=== PATIENT | female | born 1990 | race Caucasian/White ===

== ENCOUNTER 2022-11-21 02:26 | Inpatient (IN) | payer OTHER, SELFPAY ==
[2022-11-21 02:30] VITALS: BP 142/100; PULSE 116; RESP 16; TEMP 36.6; O2SAT 97; BMI 28.3
[2022-11-21 03:10] LABS: Basophils Absolute Auto 0.1 X10*3/uL (0.0-0.2); Eosinophils Absolute Auto 0.7 X10*3/uL (0.0-0.4); Eosinophils Percent Auto 8.1 % (0-4); Hematocrit 38.9 % (37.0-47.0); Hemoglobin 13.2 g/dl (12.0-16.0); Imm Gran Abs Auto 0.01 X10*3/uL (0.00-0.03); Imm Gran Pct Auto 0.1 % (0.0-0.4); Lymphocytes Absolute Auto 2.8 X10*3/uL (1.2-4.9); Lymphocytes Percent Auto 33.9 % (20-40); MANUAL DIFF FLAG NO; Mean Corpuscular HGB Conc 33.9 g/dl (31.0-35.0); Mean Corpuscular Hemoglobin 30.7 pg (27.0-33.0); Mean Corpuscular Volume 90.5 fL (80.0-98.0); Mean Platelet Volume 10.4 fL (9.4-12.3); Monocytes Absolute Auto 0.4 X10*3/uL (0.1-1.2); Monocytes Percent Auto 4.8 % (2-11); Neutrophils Absolute Auto 4.3 x10*3/uL (2.0-8.3); Neutrophils Percent Auto 52.1 % (45-73); Platelet Count 261 X10*3/uL (160-400); White Blood Count 8.3 X10*3/uL (4.8-10.8)
[2022-11-21 03:15] LABS: Appearance Urine Clear; Color Urine Yellow; Glucose Urine UA Negative (Negative); Leukocyte Esterase Urine Negative (Negative); Nitrite Urine Negative (Negative); PH 5.5 (5.0-9.0); Urine Blood Negative (Negative); Urine Ketones Negative (Negative); Urine Protein Negative (Neg-Trace)
[2022-11-21 03:16] LABS: Amphetamine Screen Urine Not Detected (Not Detect); Barbiturates, Urine Not Detected (Not Detect); Benzodiazepines Screen Urine Not Detected (Not Detect); Cannabinoid Screen Urine Not Detected (Not Detect); Cocaine Screen Urine POSITIVE (Not Detect); Fentanyl, urine POSITIVE (Not Detect); Opiate Screen Urine Not Detected (Not Detect); Phencyclidine Screen Urine Not Detected (Not Detect)
[2022-11-21 03:19] LABS: COVID-19 Test Negative (Negative); IDNOW Serial# 6674DD1D
[2022-11-21 03:20] LABS: UPreg QC Valid YES; Urine Pregnancy NEGATIVE (NEGATIVE)
[2022-11-21 03:23] LABS: Alanine Aminotransferase 18 U/L (0-31); Albumin Level 4.5 g/dL (3.5-5.0); Alkaline Phosphatase 102 U/L (39-117); Anion Gap 18 (12-20); Aspartate Amino Transferase 21 U/L (5-31); Bilirubin Total 0.5 mg/dL (0.0-1.0); Blood Urea Nitrogen 12 mg/dL (9-16); Calcium 9.5 mg/dL (8.4-10.2); Carbon Dioxide 21 mmol/L (22-29); Chloride 104 mmol/L (96-108); Creatinine Clr Calc Pharmacy 104.1; Estimated Glomerular Filt Rate > 60; Ethanol 86 mg/dL; Glucose Random 81 mg/dL (60-115); Potassium 4.3 mmol/L (3.3-5.1); Sodium 139 mmol/L (135-145); Total Protein 7.5 g/dL (6.5-8.0)
--- NOTE | 2022-11-21 05:12 | ED.PSYCH ---
HPI - Psych General Chief Complaint: Psychiatric Symptoms Stated Complaint: SI Time Seen by Provider: 11/21/22 02:45 Source: patient Mode of arrival: ambulatory Limitations: no limitations History of Present Illness HPI Narrative: Patient history of major depression has not seen any therapist or psychiatrist in the past not taking any medication using cocaine and alcohol to relieve the stress also taking Klonopin today she came as she felt very bad and with suicidal ideation, took 5 tablets of 1 mg Klonopin and had cocaine prior to arrival no hallucinations or delusions Related Data Home Medications Medication Instructions Recorded Confirmed albuterol sulfate 90 mcg/actuation 2 puff inhalation Q6H 11/21/22 11/21/22 aerosol inhaler Allergies Allergy/AdvReac Type Severity Reaction Status Date / Time shellfish derived AdvReac Swelling Verified 11/21/22 02:42 Review of Systems Review of Systems: Constitutional : No Weight loss, No Fever, No Chills ENT/Mouth : No sore throat, No Rhinorrhea Eyes: No Eye Pain, No Swelling Cardiovascular : No Chest Pain, no palpitations Respiratory : No Cough, No Sputum, no shortness of breath Gastrointestinal : no Nausea, No Vomiting, No Diarrhea, No abdominal Pain, no black stools Genitourinary : No Dysuria, No Urinary Frequency Musculoskeletal : No joint pain, No Myalgias, No Joint Swelling Skin : No Skin Lesions, No rash Neuro : No Weakness, No Numbness, No Dizziness, No Headache Psych : No Anxiety/Panic, + Depression, SI+ Heme/Lymph: No Bruising, No Lymphadenopathy Endocrine : No Polyuria, No Polydipsia All other systems reviewed and are negative Yes all other systems are reviewed and are negative [facility] Past Medical History Medical History (Updated 11/21/22 @ 05:18 by Wang Blank MD) Asthma Depression with suicidal ideation Polysubstance abuse Social History Social History Advance Directives: No Advance Directives Information Provided: No Healthcare Proxy: No Guardian: No Physical Exam Vital Signs: Vital Signs: Last Vital Signs Temp 97.8 F 11/21/22 02:30 Pulse 116 H 11/21/22 02:30 Resp 16 11/21/22 02:30 BP 142/100 H 11/21/22 02:30 Pulse Ox 97 11/21/22 02:30 O2 Del Method 11/21/22 02:30 BMI result Body Mass Index 28.3 Appearance: Alert. Oriented X3. No acute distress. ENT: Pharynx normal. Oral Mucosa moist Neck: Normal inspection. Neck supple. CVS: Normal heart rate and rhythm. Pulses normal. Respiratory: No respiratory distress. Equal air entry bilateral, no wheezing/rales/rhonchi Abdomen: Soft and nontender. Bowel sounds are present, no mass palpable, no CVA tenderness Skin: Skin warm and dry. Normal skin color. Normal skin turgor. Extremities: No lower extremity edema. No calf tenderness Psych: Look depressed with SI no current plan no HI and no hallucination and delusion Neuro: Oriented X 3. No motor deficit. No sensory deficit.No cerebellar signs , cranial nerves II-XII intact Medications Administered Generic Name Dose Route Start Last Admin Trade Name Freq PRN Reason Stop Dose Admin Albuterol Sulfate 2 puff 11/21/22 05:30 11/21/22 05:32 Albuterol Sulfate 90 Mcg 8 Gm Inhaler INHALE 2 puff Q6H VERNON Administration Medical Decision Making Medical Decision Making [facility] Narrative: Patient with major depression with SI with substance abuse seen by therapist plan for inpatient psych admission and evaluation Lab Data [facility] Lab Attestation statement: I reviewed the patient's lab results. 11/21/22 03:02 11/21/22 03:02 Labs: Lab Results 11/21/22 11/21/22 11/21/22 Range/Units 02:52 02:52 02:52 WBC (4.8-10.8) X10*3/uL RBC (4.20-5.50) X10*6/uL Hgb (12.0-16.0) g/dl Hct (37.0-47.0) % MCV (80.0-98.0) fL MCH (27.0-33.0) pg MCHC (31.0-35.0) g/dl RDW (11.0-16.0) % Plt Count (160-400) X10*3/uL MPV (9.4-12.3) fL Immature Gran % (Auto) (0.0-0.4) % Neut % (Auto) (45-73) % Lymph % (Auto) (20-40) % [place] % (Auto) (2-11) % Eos % (Auto) (0-4) % Baso % (Auto) (0-2) % Lymph # (Auto) (1.2-4.9) X10*3/uL [place] # (Auto) (0.1-1.2) X10*3/uL Eos # (Auto) (0.0-0.4) X10*3/uL Baso # (Auto) (0.0-0.2) X10*3/uL Abs Immat Gran (auto) (0.00-0.03) X10*3/uL Absolute Neuts (auto) (2.0-8.3) x10*3/uL Absolute Nucleated RBC (0.0-0.012) X10*3/uL Nucleated RBC % (auto) (0.0-0.2) /100WBC Sodium (135-145) mmol/L Potassium (3.3-5.1) mmol/L Chloride (96-108) mmol/L Carbon Dioxide (22-29) mmol/L Anion Gap (12-20) BUN (9-16) mg/dL Creatinine (0.5-1.4) mg/dL Estim Creat Clear Calc Estimated GFR Random Glucose (60-115) mg/dL Calcium (8.4-10.2) mg/dL Total Bilirubin (0.0-1.0) mg/dL AST (5-31) U/L ALT (0-31) U/L Alkaline Phosphatase (39-117) U/L Total Protein (6.5-8.0) g/dL Albumin (3.5-5.0) g/dL Urine Color Urine Appearance Urine pH (5.0-9.0) Ur Specific [place] (1.005-1.025) Urine Protein (Neg-Trace) mg/dL Urine Glucose (UA) (Negative) mg/dL Urine Ketones (Negative) mg/dL Urine Blood (Negative) Urine Nitrite (Negative) Ur Leukocyte Esterase (Negative) Urine Test NEGATIVE (NEGATIVE) Urine Opiates Screen Not Detected (Not Detect) Urine Fentanyl Screen POSITIVE H (Not Detect) Ur Barbiturates Screen Not Detected (Not Detect) Ur Phencyclidine Scrn Not Detected (Not Detect) Ur Amphetamines Screen Not Detected (Not Detect) U Benzodiazepines Scrn Not Detected (Not Detect) Urine Cocaine Screen POSITIVE H (Not Detect) U Marijuana (THC) Screen Not Detected (Not Detect) Ethyl Alcohol mg/dL COVID-19 (ION) Negative (Negative) COVID-19 Clin Com See Note 11/21/22 11/21/22 11/21/22 Range/Units 02:52 03:02 03:02 WBC 8.3 (4.8-10.8) X10*3/uL RBC 4.30 (4.20-5.50) X10*6/uL Hgb 13.2 (12.0-16.0) g/dl Hct 38.9 (37.0-47.0) % MCV 90.5 (80.0-98.0) fL MCH 30.7 (27.0-33.0) pg MCHC 33.9 (31.0-35.0) g/dl RDW 12.0 (11.0-16.0) % Plt Count 261 (160-400) X10*3/uL MPV 10.4 (9.4-12.3) fL Immature Gran % (Auto) 0.1 (0.0-0.4) % Neut % (Auto) 52.1 (45-73) % Lymph % (Auto) 33.9 (20-40) % [place] % (Auto) 4.8 (2-11) % Eos % (Auto) 8.1 H (0-4) % Baso % (Auto) 1.0 (0-2) % Lymph # (Auto) 2.8 (1.2-4.9) X10*3/uL [place] # (Auto) 0.4 (0.1-1.2) X10*3/uL Eos # (Auto) 0.7 H (0.0-0.4) X10*3/uL Baso # (Auto) 0.1 (0.0-0.2) X10*3/uL Abs Immat Gran (auto) 0.01 (0.00-0.03) X10*3/uL Absolute Neuts (auto) 4.3 (2.0-8.3) x10*3/uL Absolute Nucleated RBC 0.000 (0.0-0.012) X10*3/uL Nucleated RBC % (auto) 0.0 (0.0-0.2) /100WBC Sodium 139 (135-145) mmol/L Potassium 4.3 (3.3-5.1) mmol/L Chloride 104 (96-108) mmol/L Carbon Dioxide 21 L (22-29) mmol/L Anion Gap 18 (12-20) BUN 12 (9-16) mg/dL Creatinine 0.74 (0.5-1.4) mg/dL Estim Creat Clear Calc 104.1 Estimated GFR > 60 Random Glucose 81 (60-115) mg/dL Calcium 9.5 (8.4-10.2) mg/dL Total Bilirubin 0.5 (0.0-1.0) mg/dL AST 21 (5-31) U/L ALT 18 (0-31) U/L Alkaline Phosphatase 102 (39-117) U/L Total Protein 7.5 (6.5-8.0) g/dL Albumin 4.5 (3.5-5.0) g/dL Urine Color Yellow Urine Appearance Clear Urine pH 5.5 (5.0-9.0) Ur Specific [place] 1.010 (1.005-1.025) Urine Protein Negative (Neg-Trace) mg/dL Urine Glucose (UA) Negative (Negative) mg/dL Urine Ketones Negative (Negative) mg/dL Urine Blood Negative (Negative) Urine Nitrite Negative (Negative) Ur Leukocyte Esterase Negative (Negative) Urine Test (NEGATIVE) Urine Opiates Screen (Not Detect) Urine Fentanyl Screen (Not Detect) Ur Barbiturates Screen (Not Detect) Ur Phencyclidine Scrn (Not Detect) Ur Amphetamines Screen (Not Detect) U Benzodiazepines Scrn (Not Detect) Urine Cocaine Screen (Not Detect) U Marijuana (THC) Screen (Not Detect) Ethyl Alcohol 86 mg/dL COVID-19 (ION) (Negative) COVID-19 Clin Com Discharge Plan Discharge Clinical Impression: Depression, Suicidal ideation, Substance abuse Patient Disposition: Still a Patient Prescriptions: No Action albuterol sulfate 90 mcg/actuation HFA aerosol inhaler 2 puff INHALATION Q6H Interventions: Ward-Suicide Risk Severity Scale Last Done: 11/21/22 03:18
[2022-11-21] MEDS: Albuterol Sulfate 90 MCG 8 GM INHALER 2 PUFF INHALE ×3 (05:32→22:33)
--- NOTE | 2022-11-21 05:43 | PC.NURSE ---
Patient is in bed appears sleeping, patient reported SOB secondary to Asthma Ventolin administered as ordered at 0532 with + effect, patient was assessed by care team disposition is section 12 inpatient bed search, med rec completed/no meds except Ventolin, behavior non concerning, mood depressed, affect flat, VSS, will continue to monitor.
[2022-11-21] MEDS: LORazepam 1 MG TABLET PO (13:09)
--- NOTE | 2022-11-21 13:19 | PC.NURSE ---
patient claims that she did not do Heroin only jennifer Santos
--- NOTE | 2022-11-21 13:28 | ECG_ITS ---
Test Reason : TACHYCARDIA Blood Pressure : / mmHG Vent. Rate : 081 BPM Atrial Rate : 081 BPM P-R Int : 156 ms QRS Dur : 082 ms QT Int : 384 ms P-R-T Axes : 073 038 035 degrees QTc Int : 446 ms Normal sinus rhythm Normal ECG No previous ECGs available Referred By: Wang Blank Electronically Signed By:Alan Velasquez
[2022-11-21 13:32] VITALS: BP 111/71; PULSE 107; RESP 16; TEMP 37.1; O2SAT 94
[2022-11-21] MEDS: Acetaminophen 325 MG TABLET 650 MG PO (18:33)
--- NOTE | 2022-11-21 19:15 | PC.ADMIT ---
pt is a 32 year old female who present to M5 on a cv status from [facility]. Tox screen + for cocaine and fentanyl. Per chart review, pt presented to the ER secondary to SI with plans. Pt was under the influence of ETOH and cocaine. Pt reports that she was recently self harming by hitting herself and biting herself. Pt states that she is overwhelmed she hurts herself. During admit, pt reported that she drinks daily and before admission is was drinking an entire bottle of vodak. Pt also reported that she does cocaine daily and takes just enough to function and maintain a job. Pt denied being in ETOH withdrawals. Pt denied AH/VH/SI. Pt reported that her anxiety is an 8 out of 10. Provider called and notified for admission. Start treatment plan and monitor for safety. Pt scored a 4 on her CIAW during her admission.
[2022-11-21] MEDS: diphenhydrAMINE HCL 25 MG CAPSULE 50 MG PO (22:01)
[2022-11-21] MEDS: hydrOXYzine HCL 25 MG TABLET PO (22:44)
[2022-11-22 08:06] LABS: Alanine Aminotransferase 16 U/L (0-31); Albumin Level 3.8 g/dL (3.5-5.0); Alkaline Phosphatase 151 U/L (39-117); Anion Gap 13 (12-20); Aspartate Amino Transferase 25 U/L (5-31); Bilirubin Total 0.2 mg/dL (0.0-1.0); Blood Urea Nitrogen 18 mg/dL (9-16); Calcium 9.2 mg/dL (8.4-10.2); Carbon Dioxide 24 mmol/L (22-29); Chloride 106 mmol/L (96-108); Cholesterol 146 mg/dL; Creatinine Clr Calc Pharmacy 95.1; Estimated Glomerular Filt Rate > 60; Glucose Fasting 97 mg/dL (60-99); HDL Cholesterol 46 mg/dL; LDL Cholesterol Calculated 72 mg/dl; Potassium 4.5 mmol/L (3.3-5.1); Sodium 138 mmol/L (135-145); Total Protein 6.4 g/dL (6.5-8.0); Triglycerides 140 mg/dL
[2022-11-22 08:18] VITALS: BP 112/59; PULSE 78; RESP 16; TEMP 36.7; O2SAT 95
[2022-11-22] MEDS: hydrOXYzine HCL 25 MG TABLET PO (08:39)
[2022-11-22] MEDS: Albuterol Sulfate 90 MCG 8 GM INHALER 2 PUFF INHALE (09:52)
--- NOTE | 2022-11-22 10:51 | P.HPPS_ITS ---
HPI Date of Service: 11/22/22 Chief Complaint: depression and SI Sources of Information: patient interviewed, chart reviewed and crisis/core team assessment reviewed HPI Subjective Notes: [place] Warning and Conditional Voluntary Medical Problems Affecting Mental Status: No Past Psychiatric History: Met with patient. Chart reviewed. Discussed with nursing. Overall presented to the ED with depression and suicidal thoughts. Substance use. Recent increase in self-harm by biting self hitting self. Tox positive for cocaine, fentanyl. Also daily drinking. Today patient reports having lifelong episodes poor frustration tolerance, getting angry and losing temper and lashing out with intermittent episodes of hurting herself by biting. Reports this happens if there was something upsetting such as financial stress. Reports substances also make things worse. Reports sleep has recently been very difficult. Anxiety has been high. Intermittent thoughts of suicide. Reports she had not self harmed in quite a long time until 1 week ago. No psychosis. No manic symptoms. Endorses history of low mood, anxiety, motivation and sleep disturbance even when sober at times. Snorts cocaine a few times per week. Daily drinking. No history of detox, DTs or seizures. Informed urine was positive for fentanyl. Very surprised by same and cocaine may have been laced with fentanyl. Was sober for 2 years up until 1 year ago. 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 We discussed potential treatment options including therapy, perhaps rehab and medications. Very eager to return to work as she has missed lots of time. Agreed to start Prozac and utilize low-dose Seroquel for sleep and anxiety. Also wants to speak with treatment team tomorrow about a letter for her job so they know she is in the hospital. Medical Evaluation Reviewed: Yes [facility] Medical History (Updated 11/22/22 @ 10:59 by Dioni Pittman MD) Asthma Depression with suicidal ideation Polysubstance abuse Narrative: No inpatient episodes. No history of suicide attempts. Does have history of self-harming. Was last in therapy in 2019 but did not find this helpful. Reports having issues regarding frustration tolerance anxiety and depression since her time in [place]. Describes in 2008 being put on Paxil and Klonopin, which was a little bit helpful. Social History: Living with girlfriend of 1 year. Reports this as a positive and supportive relationship. 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 Calling out a lot over the last 1 month. Has been in the [place] for around 4 years and was in [place] prior to that. 0 children. No legal issues. Substance History: Alcohol and cocaine use disorder. Was sober for 2 years up until 1 year ago. Diagnostics Vital Signs (24Hr): Vital Signs - 24 hr 11/21/22 13:32 11/22/22 08:18 Temperature 98.7 F 98.1 F Pulse Rate 107 H 78 Respiratory Rate 16 16 Blood Pressure 111/71 112/59 L Pulse Oximetry 94 95 Oxygen Delivery Method Room Air Room Air BMI result Body Mass Index 28.3 Labs 11/21/22 03:02 11/22/22 07:39 Labs: Laboratory Results - last 48 hr 11/21/22 11/21/22 11/21/22 02:52 02:52 02:52 WBC RBC Hgb Hct MCV MCH MCHC RDW Plt Count MPV Immature Gran % (Auto) Neut % (Auto) Lymph % (Auto) [place] % (Auto) Eos % (Auto) Baso % (Auto) Lymph # (Auto) [place] # (Auto) Eos # (Auto) Baso # (Auto) Abs Immat Gran (auto) Absolute Neuts (auto) Absolute Nucleated RBC Nucleated RBC % (auto) Sodium Potassium Chloride Carbon Dioxide Anion Gap BUN Creatinine Estim Creat Clear Calc Estimated GFR Random Glucose Fasting Glucose Calcium Total Bilirubin AST ALT Alkaline Phosphatase Total Protein Albumin Triglycerides Cholesterol LDL Cholesterol, Calc HDL Cholesterol Urine Color Urine Appearance Urine pH Ur Specific [place] Urine Protein Urine Glucose (UA) Urine Ketones Urine Blood Urine Nitrite Ur Leukocyte Esterase Urine Test NEGATIVE Urine Opiates Screen Not Detected Urine Fentanyl Screen POSITIVE H Ur Barbiturates Screen Not Detected Ur Phencyclidine Scrn Not Detected Ur Amphetamines Screen Not Detected U Benzodiazepines Scrn Not Detected Urine Cocaine Screen POSITIVE H U Marijuana (THC) Screen Not Detected Ethyl Alcohol COVID-19 (ION) Negative COVID-19 Clin Com See Note 11/21/22 11/21/22 11/21/22 02:52 03:02 03:02 WBC 8.3 RBC 4.30 Hgb 13.2 Hct 38.9 MCV 90.5 MCH 30.7 MCHC 33.9 RDW 12.0 Plt Count 261 MPV 10.4 Immature Gran % (Auto) 0.1 Neut % (Auto) 52.1 Lymph % (Auto) 33.9 [place] % (Auto) 4.8 Eos % (Auto) 8.1 H Baso % (Auto) 1.0 Lymph # (Auto) 2.8 [place] # (Auto) 0.4 Eos # (Auto) 0.7 H Baso # (Auto) 0.1 Abs Immat Gran (auto) 0.01 Absolute Neuts (auto) 4.3 Absolute Nucleated RBC 0.000 Nucleated RBC % (auto) 0.0 Sodium 139 Potassium 4.3 Chloride 104 Carbon Dioxide 21 L Anion Gap 18 BUN 12 Creatinine 0.74 Estim Creat Clear Calc 104.1 Estimated GFR > 60 Random Glucose 81 Fasting Glucose Calcium 9.5 Total Bilirubin 0.5 AST 21 ALT 18 Alkaline Phosphatase 102 Total Protein 7.5 Albumin 4.5 Triglycerides Cholesterol LDL Cholesterol, Calc HDL Cholesterol Urine Color Yellow Urine Appearance Clear Urine pH 5.5 Ur Specific [place] 1.010 Urine Protein Negative Urine Glucose (UA) Negative Urine Ketones Negative Urine Blood Negative Urine Nitrite Negative Ur Leukocyte Esterase Negative Urine Test Urine Opiates Screen Urine Fentanyl Screen Ur Barbiturates Screen Ur Phencyclidine Scrn Ur Amphetamines Screen U Benzodiazepines Scrn Urine Cocaine Screen U Marijuana (THC) Screen Ethyl Alcohol 86 COVID-19 (ION) COVID-19 Clin Com 11/22/22 07:39 WBC RBC Hgb Hct MCV MCH MCHC RDW Plt Count MPV Immature Gran % (Auto) Neut % (Auto) Lymph % (Auto) [place] % (Auto) Eos % (Auto) Baso % (Auto) Lymph # (Auto) [place] # (Auto) Eos # (Auto) Baso # (Auto) Abs Immat Gran (auto) Absolute Neuts (auto) Absolute Nucleated RBC Nucleated RBC % (auto) Sodium 138 Potassium 4.5 Chloride 106 Carbon Dioxide 24 Anion Gap 13 BUN 18 H Creatinine 0.81 Estim Creat Clear Calc 95.1 Estimated GFR > 60 Random Glucose Fasting Glucose 97 Calcium 9.2 Total Bilirubin 0.2 AST 25 ALT 16 Alkaline Phosphatase 151 H Total Protein 6.4 L Albumin 3.8 Triglycerides 140 Cholesterol 146 LDL Cholesterol, Calc 72 HDL Cholesterol 46 Urine Color Urine Appearance Urine pH Ur Specific [place] Urine Protein Urine Glucose (UA) Urine Ketones Urine Blood Urine Nitrite Ur Leukocyte Esterase Urine Test Urine Opiates Screen Urine Fentanyl Screen Ur Barbiturates Screen Ur Phencyclidine Scrn Ur Amphetamines Screen U Benzodiazepines Scrn Urine Cocaine Screen U Marijuana (THC) Screen Ethyl Alcohol COVID-19 (ION) COVID-19 Clin Com Meds/Allergies Meds Home Medications Medication Instructions Recorded Confirmed Type albuterol sulfate 90 mcg/actuation 2 puff inhalation Q6H 11/21/22 11/21/22 Histo ry aerosol inhaler Allergies Allergies Allergy/AdvReac Type Severity Reaction Status Date / Time shellfish derived AdvReac Swelling Verified 11/21/22 02:42 Mental Status Exam Mental Status Exam Narrative: Pleasant. Appropriately presented. Self-care okay. Anxious and tearful at times. Endorsed intermittent suicidal thoughts but no plan or intent. Feels supported. No HI. No psychosis. Insight and judgment okay Assessment & Plan Assessment & Plan (1) Mood disorder: Status: Acute Code(s): F39 - Unspecified mood [affective] disorder (2) Substance abuse: Status: Acute Code(s): F19.10 - Other psychoactive substance abuse, uncomplicated Plan Presents with unspecified mood disorder, poor frustration tolerance in the context of comorbid substance use disorder. No clear episodes of susan or hypomania in the past. Underlying mood disorder likely anxiety or depression in nature, with comorbid mood lability that is episodic in nature. May benefit from trial of Prozac and low-dose Seroquel for anxiety and sleep. Risks and benefits discussed. Unclear if patient is open to substance use treatment. Patient educated on: diagnosis, medication risk/benefits and therapeutic strategies Informed Consent: understands Reason for continued inpatient stay Substantial Risk for: harm to self Statement Statement: I have reviewed the history and physical and performed a pertinent examination on my patient. No changes have occurred unless specified. If the History and Physical was not performed prior to admission, the Hospitalist's service will be consulted for completing the admission physic al. Time Spent With Patient Time: Total time managing care of this patient today ____ minutes.
[2022-11-22] MEDS: QUEtiapine Fumarate 25 MG TABLET PO (11:08)
[2022-11-22] MEDS: FLUoxetine HCl 20 MG CAPSULE PO (11:08)
[2022-11-22 18:56] VITALS: BP 137/75; PULSE 99
[2022-11-22] MEDS: QUEtiapine Fumarate 50 MG TABLET PO (18:57)
[2022-11-22] MEDS: diphenhydrAMINE HCL 25 MG CAPSULE 50 MG PO (20:58)
[2022-11-23] MEDS: Albuterol Sulfate 90 MCG 8 GM INHALER 2 PUFF INHALE ×3 (08:29→15:38)
[2022-11-23] MEDS: FLUoxetine HCl 20 MG CAPSULE PO (08:30)
[2022-11-23] MEDS: Thiamine HCL 100 MG TABLET PO (08:30)
[2022-11-23] MEDS: Folic Acid 1 MG TABLET PO (08:30)
[2022-11-23] MEDS: Multivitamin TABLET 1 TAB PO (08:30)
[2022-11-23] MEDS: hydrOXYzine HCL 50 MG TABLET PO ×2 (08:46→14:56)
[2022-11-23 09:21] VITALS: BP 96/61; PULSE 81; RESP 14; TEMP 36.2; O2SAT 95
[2022-11-23] MEDS: Acetaminophen 325 MG TABLET 650 MG PO (13:58)
[2022-11-23 16:24] VITALS: BP 107/63; PULSE 80; TEMP 37
--- NOTE | 2022-11-23 16:39 | HO.PSYCHPN ---
Subjective Subjective Date of Service: 11/23/22 Reason For Visit: depression and SI Subjective Notes: Conditional Voluntary Healthcare Proxy: No Guardianship: No Medical Problems Affecting Mental Status: No Interim History: Pt reviewed precipitants to admission. Review of medications. Asks that Seroquel be discontinued. Replaced with low dose Mirtazapine for assist with sleep. Pt would like out patient referrals, no current interest in CSS/Residential referrals Fluoxetine initiated over the weekend which she would like to continue trial. Detox completed. Medication Compliance: Yes Side effects from medications: Yes (Seroquel, too sedative, will discontinue per pt request) Attending Groups: Intermittent Review of Systems Acute medical concerns: No Medical Review of Systems: unchanged Mental Status Exam Mental Status Exam Patient Appearance: Appropriate Patient Orientation: Person, Place, Time and Situation Level of Consciousness: Alert Patient Behavior: Appropriate, Talkative, Cooperative and Good Eye Contact Mood Description: Anxious Affect Description: Anxious Patient Cognition Impaired: No Ability to Follow Directions: Good Speech Pattern: Spontaneous Speech Memory Description: Intact Hallucinations: None Delusions: Not Present Thought Process: Intact and Goal Oriented Thought Content: positive for Intact and positive for Goal Oriented Depressive Symptoms: Increased Anxiety Judgement: Good Diagnostics Vital Signs (24Hr): Vital Signs - 24 hr 11/22/22 18:56 11/23/22 09:21 11/23/22 16:24 Temperature 97.1 F 98.6 F Pulse Rate 99 81 80 Respiratory Rate 14 Blood Pressure 137/75 96/61 107/63 Pulse Oximetry 95 Oxygen Delivery Method Room Air BMI result Body Mass Index 28.3 Labs 11/21/22 03:02 11/22/22 07:39 Labs: Laboratory Results - last 48 hr 11/22/22 07:39 Sodium 138 Potassium 4.5 Chloride 106 Carbon Dioxide 24 Anion Gap 13 BUN 18 H Creatinine 0.81 Estim Creat Clear Calc 95.1 Estimated GFR > 60 Fasting Glucose 97 Calcium 9.2 Total Bilirubin 0.2 AST 25 ALT 16 Alkaline Phosphatase 151 H Total Protein 6.4 L Albumin 3.8 Triglycerides 140 Cholesterol 146 LDL Cholesterol, Calc 72 HDL Cholesterol 46 Medications Medications Current Medications Acetaminophen (Acetaminophen 325 Mg Tablet) 650 mg PO Q6H PRN PRN Reason: Headache/Pain Mild Scale (1-3) Last Admin: 11/23/22 13:58 Dose: 650 mg Al Hydroxide/Mg Hydroxide (Magnesium Hydrox/Alum Hydrox 30 Ml Oral.Susp) 30 ml PO Q6H PRN PRN Reason: Heartburn/Nausea Albuterol Sulfate (Albuterol Sulfate 90 Mcg 8 Gm Inhaler) 2 puff INHALE RQ4H [facility] Last Admin: 11/23/22 15:38 Dose: 2 puff Diphenhydramine HCl (Diphenhydramine Hcl 25 Mg Capsule) 50 mg PO BEDTIME PRN PRN Reason: Sleep Last Admin: 11/22/22 20:58 Dose: 50 mg Fluoxetine HCl (Fluoxetine Hcl 20 Mg Capsule) 20 mg PO DAILY [facility] Last Admin: 11/23/22 08:30 Dose: 20 mg Folic Acid (Folic Acid 1 Mg Tablet) 1 mg PO DAILY [facility] Stop: 11/26/22 08:59 Last Admin: 11/23/22 08:30 Dose: 1 mg Hydroxyzine HCl (Hydroxyzine Hcl 50 Mg Tablet) 50 mg PO Q6H PRN PRN Reason: Anxiety Last Admin: 11/23/22 14:56 Dose: 50 mg Lorazepam (Lorazepam 1 Mg Tablet) 1 mg PO Q4H PRN PRN Reason: Breakthrough alcohol withdrawa Stop: 11/26/22 10:48 Magnesium Hydroxide (Milk Of Magnesia 30 Ml Oral.Susp) 30 ml PO DAILY PRN PRN Reason: Constipation Mirtazapine (Mirtazapine 7.5 Mg Tablet) 3.75 mg PO BEDTIME [facility] Multivitamins/Vitamin C (Multivitamin Tablet) 1 tab PO DAILY [facility] Stop: 11/26/22 08:59 Last Admin: 11/23/22 08:30 Dose: 1 tab Propranolol HCl (Propranolol Hcl 10 Mg Tablet) 5 mg PO BID [facility]; Protocol Thiamine HCl (Thiamine Hcl 100 Mg Tablet) 100 mg PO DAILY [facility] Stop: 11/26/22 08:59 Last Admin: 11/23/22 08:30 Dose: 100 mg Trazodone HCl (Trazodone Hcl 50 Mg Tablet) 50 mg PO BEDTIME MRX1 PRN PRN Reason: insomnia Allergies Allergies Allergy/AdvReac Type Severity Reaction Status Date / Time shellfish derived AdvReac Swelling Verified 11/21/22 02:42 Assessment & Plan Assessment & Plan (1) Mood disorder: Status: Acute Code(s): F39 - Unspecified mood [affective] disorder (2) Substance abuse: Status: Acute Code(s): F19.10 - Other psychoactive substance abuse, uncomplicated Plan Presents with unspecified mood disorder, poor frustration tolerance in the context of comorbid substance use disorder. No clear episodes of susan or hypomania in the past. Underlying mood disorder likely anxiety or depression in nature, with comorbid mood lability that is episodic in nature. May benefit from trial of Prozac and low-dose Seroquel for anxiety and sleep. Risks and benefits discussed. Unclear if patient is open to substance use treatment. 11/23/22: Discontinue Seroquel Mirtazapine 3.75 mg hs for sleep, anxiety Continue Prozac Detox completed Target sx anxiety, sleep. Pt agrees to out patient referrals. Patient educated on: medication risk/benefits and therapeutic strategies Informed Consent: understands Reason for contiued inpatient stay Substantial Risk for: rapid decompensation Time Spent With Patient Time: Total time managing care of this patient today ____ minutes.
[2022-11-23] MEDS: Propranolol HCL 10 MG TABLET 5 MG PO (20:16)
[2022-11-23] MEDS: Mirtazapine 7.5 MG TABLET 3.75 MG PO (20:16)
[2022-11-24] MEDS: Albuterol Sulfate 90 MCG 8 GM INHALER 2 PUFF INHALE ×6 (02:23→21:03)
[2022-11-24 08:00] VITALS: BP 110/64; PULSE 78; RESP 16; TEMP 36.5; O2SAT 96
[2022-11-24] MEDS: Multivitamin TABLET 1 TAB PO (08:07)
[2022-11-24] MEDS: Thiamine HCL 100 MG TABLET PO (08:07)
[2022-11-24] MEDS: Folic Acid 1 MG TABLET PO (08:07)
[2022-11-24] MEDS: FLUoxetine HCl 20 MG CAPSULE PO (08:07)
[2022-11-24] MEDS: hydrOXYzine HCL 50 MG TABLET PO (12:54)
[2022-11-24 12:55] VITALS: BP 108/64; PULSE 89
[2022-11-24] MEDS: Propranolol HCL 10 MG TABLET 5 MG PO (12:55)
[2022-11-24] MEDS: Loratadine 10 MG TABLET PO (14:11)
--- NOTE | 2022-11-24 16:23 | HO.PSYCHPN ---
Subjective Subjective Date of Service: 11/24/22 Reason For Visit: depression and SI Subjective Notes: Conditional Voluntary Healthcare Proxy: No Guardianship: No Medical Problems Affecting Mental Status: No Interim History: Reports Mirtazapine effective but needing increase, will increase to 7.5 mg Assessing out patient options, utilizing milieu and team to compose an out pt plan for herself which keeps her on more solid ground to keep progressing forward. Describes goals-to return to [place], but to return in a planned minful way. Discussed hx of quitting her job, leaving her apartment and car and just returning on a quick decision in the past. She is not wanting to do this again. Medication Compliance: Yes Side effects from medications: No Attending Groups: Intermittent Review of Systems Acute medical concerns: No Medical Review of Systems: unchanged Mental Status Exam Mental Status Exam Patient Appearance: Appropriate Patient Orientation: Person, Place, Time and Situation Level of Consciousness: Alert Patient Behavior: Appropriate, Talkative, Cooperative and Good Eye Contact Mood Description: Anxious Affect Description: Anxious Patient Cognition Impaired: No Ability to Follow Directions: Good Speech Pattern: Spontaneous Speech Memory Description: Intact Hallucinations: None Delusions: Not Present Thought Process: Intact and Goal Oriented Thought Content: positive for Intact and positive for Goal Oriented Depressive Symptoms: Increased Anxiety Judgement: Good Diagnostics Vital Signs (24Hr): Vital Signs - 24 hr 11/23/22 16:24 11/24/22 08:00 11/24/22 12:55 Temperature 98.6 F 97.7 F Pulse Rate 80 78 89 Respiratory Rate 16 Blood Pressure 107/63 110/64 108/64 Pulse Oximetry 96 Oxygen Delivery Method Room Air BMI result Body Mass Index 28.3 Labs 11/21/22 03:02 11/22/22 07:39 Medications Medications Current Medications Acetaminophen (Acetaminophen 325 Mg Tablet) 650 mg PO Q6H PRN PRN Reason: Headache/Pain Mild Scale (1-3) Last Admin: 11/23/22 13:58 Dose: 650 mg Al Hydroxide/Mg Hydroxide (Magnesium Hydrox/Alum Hydrox 30 Ml Oral.Susp) 30 ml PO Q6H PRN PRN Reason: Heartburn/Nausea Albuterol Sulfate (Albuterol Sulfate 90 Mcg 8 Gm Inhaler) 2 puff INHALE RQ4H [facility] Last Admin: 11/24/22 16:21 Dose: 2 puff Diphenhydramine HCl (Diphenhydramine Hcl 25 Mg Capsule) 50 mg PO BEDTIME PRN PRN Reason: Sleep Last Admin: 11/22/22 20:58 Dose: 50 mg Fluoxetine HCl (Fluoxetine Hcl 20 Mg Capsule) 20 mg PO DAILY [facility] Last Admin: 11/24/22 08:07 Dose: 20 mg Folic Acid (Folic Acid 1 Mg Tablet) 1 mg PO DAILY [facility] Stop: 11/26/22 08:59 Last Admin: 11/24/22 08:07 Dose: 1 mg Hydroxyzine HCl (Hydroxyzine Hcl 50 Mg Tablet) 50 mg PO Q6H PRN PRN Reason: Anxiety Last Admin: 11/24/22 12:54 Dose: 50 mg Loratadine (Loratadine 10 Mg Tablet) 10 mg PO DAILY PRN PRN Reason: allergy symptoms Last Admin: 11/24/22 14:11 Dose: 10 mg Lorazepam (Lorazepam 1 Mg Tablet) 1 mg PO Q4H PRN PRN Reason: Breakthrough alcohol withdrawa Stop: 11/26/22 10:48 Magnesium Hydroxide (Milk Of Magnesia 30 Ml Oral.Susp) 30 ml PO DAILY PRN PRN Reason: Constipation Mirtazapine (Mirtazapine 7.5 Mg Tablet) 7.5 mg PO BEDTIME [facility]ON Multivitamins/Vitamin C (Multivitamin Tablet) 1 tab PO DAILY [facility] Stop: 11/26/22 08:59 Last Admin: 11/24/22 08:07 Dose: 1 tab Propranolol HCl (Propranolol Hcl 10 Mg Tablet) 5 mg PO BID PRN; Protocol PRN Reason: anxiety Thiamine HCl (Thiamine Hcl 100 Mg Tablet) 100 mg PO DAILY [facility]ON Stop: 11/26/22 08:59 Last Admin: 11/24/22 08:07 Dose: 100 mg Trazodone HCl (Trazodone Hcl 50 Mg Tablet) 50 mg PO BEDTIME MRX1 PRN PRN Reason: insomnia Allergies Allergies Allergy/AdvReac Type Severity Reaction Status Date / Time shellfish derived AdvReac Swelling Verified 11/21/22 02:42 Assessment & Plan Assessment & Plan (1) Mood disorder: Status: Acute Code(s): F39 - Unspecified mood [affective] disorder (2) Substance abuse: Status: Acute Code(s): F19.10 - Other psychoactive substance abuse, uncomplicated Plan Presents with unspecified mood disorder, poor frustration tolerance in the context of comorbid substance use disorder. No clear episodes of susan or hypomania in the past. Underlying mood disorder likely anxiety or depression in nature, with comorbid mood lability that is episodic in nature. May benefit from trial of Prozac and low-dose Seroquel for anxiety and sleep. Risks and benefits discussed. Unclear if patient is open to substance use treatment. 11/23/22: Discontinue Seroquel Mirtazapine 3.75 mg hs for sleep, anxiety Continue Prozac Detox completed Target sx anxiety, sleep. Pt agrees to out patient referrals. 11/24/22: Increase Mirtazapine to 7.5 mg HS Discharge planning for 11/26/22. Patient educated on: medication risk/benefits and therapeutic strategies Informed Consent: understands Reason for contiued inpatient stay Substantial Risk for: rapid decompensation Time Spent With Patient Time: Total time managing care of this patient today ____ minutes.
[2022-11-24] MEDS: LORazepam 1 MG TABLET PO (17:44)
[2022-11-24 18:00] VITALS: BP 111/69; PULSE 93; RESP 16; TEMP 36.3; O2SAT 97
[2022-11-24] MEDS: Mirtazapine 7.5 MG TABLET PO (21:03)
[2022-11-25 08:22] VITALS: BP 129/69; PULSE 92; RESP 16; TEMP 36.4; O2SAT 96
[2022-11-25] MEDS: Folic Acid 1 MG TABLET PO (08:30)
[2022-11-25] MEDS: FLUoxetine HCl 20 MG CAPSULE PO (08:30)
[2022-11-25] MEDS: Thiamine HCL 100 MG TABLET PO (08:30)
[2022-11-25] MEDS: Multivitamin TABLET 1 TAB PO (08:30)
[2022-11-25] MEDS: Albuterol Sulfate 90 MCG 8 GM INHALER 2 PUFF INHALE ×4 (08:30→21:52)
[2022-11-25] MEDS: LORazepam 1 MG TABLET PO ×3 (08:51→20:34)
[2022-11-25] MEDS: Loratadine 10 MG TABLET PO (08:51)
[2022-11-25] MEDS: hydrOXYzine HCL 50 MG TABLET PO ×2 (13:36→21:49)
[2022-11-25 14:46] VITALS: BP 110/60; PULSE 97
[2022-11-25] MEDS: Propranolol HCL 10 MG TABLET 5 MG PO (14:49)
--- NOTE | 2022-11-25 17:13 | HO.PSYCHPN ---
Subjective Subjective Date of Service: 11/25/22 Reason For Visit: depression and SI Subjective Notes: Conditional Voluntary Healthcare Proxy: No Guardianship: No Medical Problems Affecting Mental Status: No Interim History: Preparing for discharge, planning out patient options. Mirtazapine increase effective, will continue with this plan. Discharge 11/26. Pt reports she is pleased with her work during her hospitalization. Medication Compliance: Yes Side effects from medications: No Attending Groups: Intermittent Review of Systems Acute medical concerns: No Medical Review of Systems: unchanged Mental Status Exam Mental Status Exam Patient Appearance: Appropriate Patient Orientation: Person, Place, Time and Situation Level of Consciousness: Alert Patient Behavior: Appropriate, Talkative, Cooperative and Good Eye Contact Mood Description: Anxious Affect Description: Anxious Patient Cognition Impaired: No Ability to Follow Directions: Good Speech Pattern: Spontaneous Speech Memory Description: Intact Hallucinations: None Delusions: Not Present Thought Process: Intact and Goal Oriented Thought Content: positive for Intact and positive for Goal Oriented Depressive Symptoms: Increased Anxiety Judgement: Good Diagnostics Vital Signs (24Hr): Vital Signs - 24 hr 11/24/22 18:00 11/25/22 08:22 11/25/22 14:46 Temperature 97.4 F 97.6 F Pulse Rate 93 92 97 Respiratory Rate 16 16 Blood Pressure 111/69 129/69 110/60 Pulse Oximetry 97 96 Oxygen Delivery Method Room Air Room Air BMI result Body Mass Index 28.3 Labs 11/21/22 03:02 11/22/22 07:39 Medications Medications Current Medications Acetaminophen (Acetaminophen 325 Mg Tablet) 650 mg PO Q6H PRN PRN Reason: Headache/Pain Mild Scale (1-3) Last Admin: 11/23/22 13:58 Dose: 650 mg Al Hydroxide/Mg Hydroxide (Magnesium Hydrox/Alum Hydrox 30 Ml Oral.Susp) 30 ml PO Q6H PRN PRN Reason: Heartburn/Nausea Albuterol Sulfate (Albuterol Sulfate 90 Mcg 8 Gm Inhaler) 2 puff INHALE RQ4H [facility] Last Admin: 11/25/22 16:12 Dose: 2 puff Diphenhydramine HCl (Diphenhydramine Hcl 25 Mg Capsule) 50 mg PO BEDTIME PRN PRN Reason: Sleep Last Admin: 11/22/22 20:58 Dose: 50 mg Fluoxetine HCl (Fluoxetine Hcl 20 Mg Capsule) 20 mg PO DAILY [facility] Last Admin: 11/25/22 08:30 Dose: 20 mg Folic Acid (Folic Acid 1 Mg Tablet) 1 mg PO DAILY [facility] Stop: 11/26/22 08:59 Last Admin: 11/25/22 08:30 Dose: 1 mg Hydroxyzine HCl (Hydroxyzine Hcl 50 Mg Tablet) 50 mg PO Q6H PRN PRN Reason: Anxiety Last Admin: 11/25/22 13:36 Dose: 50 mg Loratadine (Loratadine 10 Mg Tablet) 10 mg PO DAILY PRN PRN Reason: allergy symptoms Last Admin: 11/25/22 08:51 Dose: 10 mg Lorazepam (Lorazepam 1 Mg Tablet) 1 mg PO Q4H PRN PRN Reason: Breakthrough alcohol withdrawa Stop: 11/26/22 10:48 Last Admin: 11/25/22 16:16 Dose: 1 mg Magnesium Hydroxide (Milk Of Magnesia 30 Ml Oral.Susp) 30 ml PO DAILY PRN PRN Reason: Constipation Mirtazapine (Mirtazapine 7.5 Mg Tablet) 7.5 mg PO BEDTIME [facility]ON Last Admin: 11/24/22 21:03 Dose: 7.5 mg Multivitamins/Vitamin C (Multivitamin Tablet) 1 tab PO DAILY [facility]ON Stop: 11/26/22 08:59 Last Admin: 11/25/22 08:30 Dose: 1 tab Propranolol HCl (Propranolol Hcl 10 Mg Tablet) 5 mg PO BID PRN; Protocol PRN Reason: anxiety Last Admin: 11/25/22 14:49 Dose: 5 mg Thiamine HCl (Thiamine Hcl 100 Mg Tablet) 100 mg PO DAILY [facility]ON Stop: 11/26/22 08:59 Last Admin: 11/25/22 08:30 Dose: 100 mg Trazodone HCl (Trazodone Hcl 50 Mg Tablet) 50 mg PO BEDTIME MRX1 PRN PRN Reason: insomnia Allergies Allergies Allergy/AdvReac Type Severity Reaction Status Date / Time shellfish derived AdvReac Swelling Verified 11/21/22 02:42 Assessment & Plan Assessment & Plan (1) Mood disorder: Status: Acute Code(s): F39 - Unspecified mood [affective] disorder (2) Substance abuse: Status: Acute Code(s): F19.10 - Other psychoactive substance abuse, uncomplicated Plan Presents with unspecified mood disorder, poor frustration tolerance in the context of comorbid substance use disorder. No clear episodes of susan or hypomania in the past. Underlying mood disorder likely anxiety or depression in nature, with comorbid mood lability that is episodic in nature. May benefit from trial of Prozac and low-dose Seroquel for anxiety and sleep. Risks and benefits discussed. Unclear if patient is open to substance use treatment. 11/23/22: Discontinue Seroquel Mirtazapine 3.75 mg hs for sleep, anxiety Continue Prozac Detox completed Target sx anxiety, sleep. Pt agrees to out patient referrals. 11/24/22: Increase Mirtazapine to 7.5 mg HS Discharge planning for 11/26/22. 11/25/22 Prepared for discharge 11/26/22. Patient educated on: medication risk/benefits and therapeutic strategies Informed Consent: understands Reason for contiued inpatient stay Substantial Risk for: stable for discharge Time Spent With Patient Time: Total time managing care of this patient today ____ minutes.
[2022-11-25 18:00] VITALS: BP 116/63; PULSE 84; RESP 20; TEMP 36.5; O2SAT 98
[2022-11-25] MEDS: traZODone HCL 50 MG TABLET PO (21:48)
[2022-11-25] MEDS: diphenhydrAMINE HCL 25 MG CAPSULE 50 MG PO (21:48)
[2022-11-25] MEDS: Mirtazapine 7.5 MG TABLET PO (22:20)
[2022-11-26 08:38] VITALS: BP 105/56; PULSE 76; RESP 16; TEMP 36.9; O2SAT 97
[2022-11-26] MEDS: FLUoxetine HCl 20 MG CAPSULE PO (09:09)
[2022-11-26] MEDS: Albuterol Sulfate 90 MCG 8 GM INHALER 2 PUFF INHALE (09:12)
[2022-11-26] MEDS: hydrOXYzine HCL 50 MG TABLET PO (09:29)
[2022-11-26 14:01] VITALS: BP 113/65; PULSE 72; RESP 16; TEMP 36.9; O2SAT 97
[2022-11-26] MEDS: Loratadine 10 MG TABLET PO (14:03)
[2022-11-26] MEDS: Propranolol HCL 10 MG TABLET 5 MG PO (14:03)
--- NOTE | 2022-12-12 16:59 | P.DS_ITS ---
DS: Providers Provider Date of Service: 11/26/22 Date of admission: 11/21/22 17:18 Date of discharge: 11/26/22 Primary care physician: Unknown Physician Admitting clinician: Dioni Pittman Attending physician on admission: Dioni Pittman Attending physician on discharge: Raymond Sinha Discharging clinician: Jenny See DS: Diagnosis Discharge Diagnosis (1) Mood disorder: Status: Acute (2) Substance abuse: Status: Acute DS: Medications Discharge Medications Home Medications: Home Medications Medication Instructions Recorded Confirmed hydroxyzine HCl 50 mg tablet 25 mg PO Q6H PRN anxiety 12/03/22 12/03/22 thiamine HCl (vitamin B1) 100 mg 100 mg PO DAILY 12/03/22 12/03/22 tablet Previous Rx's Medication Instructions Recorded fluoxetine 20 mg capsule 20 mg PO DAILY #30 caps 11/26/22 folic acid 1 mg tablet 1 mg PO DAILY #30 tabs 11/26/22 mirtazapine 7.5 mg tablet 7.5 mg PO BEDTIME #30 tabs 11/26/22 multivitamin (Daily-Jam tablet) 1 tab PO DAILY #30 tabs 11/26/22 albuterol sulfate 90 mcg/actuation 2 puff inhalation Q6H 30 days #1 12/07/22 aerosol inhaler inhaler loratadine 10 mg tablet 10 mg PO DAILY PRN allergies 30 12/07/22 days #30 tabs Mental Status Exam Mental Status Exam Patient Appearance: Appropriate Patient Orientation: Person, Place, Time and Situation Level of Consciousness: Alert Patient Behavior: Appropriate, Talkative, Cooperative and Good Eye Contact Mood Description: Anxious Affect Description: Anxious Patient Cognition Impaired: No Ability to Follow Directions: Good Speech Pattern: Spontaneous Speech Memory Description: Intact Hallucinations: None Delusions: Not Present Thought Process: Intact and Goal Oriented Thought Content: positive for Intact and positive for Goal Oriented Depressive Symptoms: Increased Anxiety Judgement: Good DS: Summary Hospital Course Hospital Course: Admission to adult psychiatry for exacerbation of depression, substance use disorder, cocaine as primary substance. Fluoxetine was initiated. Mirtazapine was added to assist with sleep. Pt requested a brief admission to return to work. She was encouraged to stay and complete work on issues precipitating admission, but declined. She was referred to [facility] for ongoing treatment, [facility] to continue out patient therapy and psychopharmacolgy and encouarged to call and or return as needed. Status at Discharge Functional status at discharge: independent ambulation Overall status at discharge: patient is progressing back to baseline Time Spent with Patient Time attestation: Total time managing care of this patient today ____ minutes. Time spent: Greater than 30 minutes Discharge Plan Discharge Anticipated Discharge Date/Time: 11/26/22 17:41 Patient Disposition: Home, Self-Care Discharge Diagnosis: Major Depression, Recurrent Substance Use Disorder Referrals: [facility] [Other] - 11/30/22 1:00 pm (Referral to [facility] for substance use treatment [facility] will call to confirm appointment. Also Check your email for needed paperwork to be completed by you and submitted to them prior to intake.) Hong Ponce: [facility] [Other] - 12/02/22 2:00 pm (Initial Diagnostic Evaluation for therapy Appointment in office at [facility] ) Natalya Torres: [facility] [Other] - 12/25/22 11:00 am (Initial Psychiatric Evaluation by a psychiatric medication prescriber Appointment is by tele-health. Check your email for a link to the appointment ) Natalya Torres: [facility] [Other] - 01/22/23 11:00 am (Medication Management appointment Appointment is by tele-health. Please check your email for a link to the appointment.) Physician,Unknown J [Primary Care Provider] - 1 Week Discharge Medications: New folic acid 1 mg Tablet 1 mg PO DAILY Qty: 30 0RF fluoxetine 20 mg Capsule 20 mg PO DAILY Qty: 30 0RF mirtazapine 7.5 mg Tablet 7.5 mg PO BEDTIME Qty: 30 0RF multivitamin [Daily-Jam] Tablet 1 tab PO DAILY Qty: 30 0RF Discontinued albuterol sulfate 90 mcg/actuation HFA aerosol inhaler 2 puff INHALATION Q6H No Action thiamine HCl (vitamin B1) 100 mg Tablet 100 mg PO DAILY hydroxyzine HCl 50 mg tablet 25 mg PO Q6H PRN (Reason: anxiety) albuterol sulfate 90 mcg/actuation HFA aerosol inhaler 2 puff INHALATION Q6H 30 Days Qty: 1 0RF loratadine 10 mg tablet 10 mg PO DAILY PRN (Reason: allergies) 30 Days Qty: 30 0RF Discharge Orders: Discharge Order (Routine); Ordered 11/26/22 Ordered By: Jenny See Diet: Regular diet Activity on Discharge: As tolerated Stand Alone Forms: Patient Portal Discharge page, Community Support Care Plan Goals: Maintain mood and safe behaviors Take medications as prescribed Practice coping skills Continue with outpatient providers and reach out to them as needed Health Concerns: Mood stability and behaviors Plan of Treatment: Follow up with your PCP, psychiatric provider and other outpatient providers regarding above concerns Take medications as prescribed Assessment: Risk assessment at time of discharge:? Patient was interviewed prior to discharge and found to be fully oriented and without any SI or HI. Patient has insight and demonstrates good judgment in terms of wanting to pursue treatment. Patient is not in imminent risk of harm to self or others and has a safety plan that includes presenting to the closest ER or calling 911 if feeling unsafe.? Patient has been observed closely by nursing and unit staff throughout admission; patient has not engaged in any behaviors that suggest dangerousness to self or others and has demonstrated appropriate behaviors and impulse control Discharge Date/Time: 11/26/22 15:00
== END 2022-11-26 15:00 | disposition home or self-care (01) | DRG 753 ==
LOC: HO.ED 06:26 → HO.PM5 17:31
PROVIDERS: Admitting Provider Psychiatry & Neurology Psychiatry; Emergency Provider Internal Medicine; Visit Provider Clinical Nurse Specialist Psychiatric/Mental Health, Adult
DX: F39 Unspecified mood [affective] disorder (principal); R45.851 Suicidal ideations; J45.909 Unspecified asthma, uncomplicated; Y90.4 Blood alcohol level of 80-99 mg/100 ml; F19.10 Other psychoactive substance abuse, uncomplicated; F14.10 Cocaine abuse, uncomplicated; Z20.822 Contact with and (suspected) exposure to COVID-19; Z91.52 Personal history of nonsuicidal self-harm; Z79.899 Other long term (current) drug therapy
CPT/HCPCS: 36415; 80053; 80061; 80307; 81003; 81025; 82077; 85025; 87635; 93005; 99285; S9485

== ENCOUNTER 2022-12-01 23:36 | Inpatient (IN) | payer OTHER, SELFPAY ==
[2022-12-01 23:43] VITALS: BP 146/96; PULSE 104; RESP 20; TEMP 36.5; O2SAT 100; BMI 30.1
--- NOTE | 2022-12-02 | ECG_ITS ---
Test Reason : cocaine use Blood Pressure : / mmHG Vent. Rate : 078 BPM Atrial Rate : 078 BPM P-R Int : 162 ms QRS Dur : 080 ms QT Int : 378 ms P-R-T Axes : 066 036 003 degrees QTc Int : 430 ms Normal sinus rhythm with sinus arrhythmia Normal ECG When compared with ECG of 21-NOV-2022 13:13, No significant change was found Referred By: Wang Blank Electronically Signed By:MADELIN KING
[2022-12-02 00:29] LABS: Appearance Urine Clear; Color Urine Yellow; Glucose Urine UA Negative (Negative); Leukocyte Esterase Urine Negative (Negative); Nitrite Urine Negative (Negative); Specific Gravity - Urine 1.015 (1.005-1.025); Urine Blood Negative (Negative); Urine Ketones Negative (Negative); Urine Protein Negative (Neg-Trace)
[2022-12-02 00:30] LABS: UPreg QC Valid YES; Urine Pregnancy NEGATIVE (NEGATIVE)
[2022-12-02 00:44] LABS: Basophils Absolute Auto 0.1 X10*3/uL (0.0-0.2); Basophils Percent Auto 0.8 % (0-2); Eosinophils Absolute Auto 0.7 X10*3/uL (0.0-0.4); Eosinophils Percent Auto 6.5 % (0-4); Hematocrit 37.8 % (37.0-47.0); Hemoglobin 12.9 g/dl (12.0-16.0); Imm Gran Abs Auto 0.01 X10*3/uL (0.00-0.03); Imm Gran Pct Auto 0.1 % (0.0-0.4); MANUAL DIFF FLAG NO; Mean Corpuscular HGB Conc 34.1 g/dl (31.0-35.0); Mean Corpuscular Hemoglobin 30.4 pg (27.0-33.0); Mean Corpuscular Volume 89.2 fL (80.0-98.0); Mean Platelet Volume 10.7 fL (9.4-12.3); Monocytes Absolute Auto 0.7 X10*3/uL (0.1-1.2); Monocytes Percent Auto 7.1 % (2-11); Neutrophils Absolute Auto 5.6 x10*3/uL (2.0-8.3); Neutrophils Percent Auto 55.5 % (45-73); Platelet Count 215 X10*3/uL (160-400); Red Blood Count 4.24 X10*6/uL (4.20-5.50); Red Cell Distribution Width 11.9 % (11.0-16.0); White Blood Count 10.1 X10*3/uL (4.8-10.8)
[2022-12-02 00:46] LABS: COVID-19 Test Negative (Negative); IDNOW Serial# 6674DD1D
[2022-12-02 00:53] LABS: Amphetamine Screen Urine Not Detected (Not Detect); Barbiturates, Urine Not Detected (Not Detect); Benzodiazepines Screen Urine Not Detected (Not Detect); Cannabinoid Screen Urine POSITIVE (Not Detect); Cocaine Screen Urine POSITIVE (Not Detect); Fentanyl, urine Not Detected (Not Detect); Opiate Screen Urine Not Detected (Not Detect); Phencyclidine Screen Urine Not Detected (Not Detect)
[2022-12-02 00:59] LABS: Alanine Aminotransferase 33 U/L (0-31); Albumin Level 4.4 g/dL (3.5-5.0); Alkaline Phosphatase 101 U/L (39-117); Anion Gap 15 (12-20); Aspartate Amino Transferase 23 U/L (5-31); Bilirubin Total 0.6 mg/dL (0.0-1.0); Blood Urea Nitrogen 11 mg/dL (9-16); Calcium 9.2 mg/dL (8.4-10.2); Carbon Dioxide 22 mmol/L (22-29); Chloride 105 mmol/L (96-108); Creatinine Clr Calc Pharmacy 110.2; Estimated Glomerular Filt Rate > 60; Ethanol 24 mg/dL; Glucose Random 82 mg/dL (60-115); Potassium 3.8 mmol/L (3.3-5.1); Sodium 138 mmol/L (135-145); Total Protein 7.2 g/dL (6.5-8.0)
--- NOTE | 2022-12-02 06:10 | PC.NURSE ---
Patient slept through the night, no distress observed/reported, med rec completed/approved/NOV active, labs completed/resulted, care consult ordered/pending evaluation, behavior non concerning, VSS, will continue to monitor.
--- NOTE | 2022-12-02 07:00 | ED_ITS ---
HPI - Psych General Chief Complaint: Psychiatric Symptoms Stated Complaint: Crisis Time Seen by Provider: 12/02/22 00:04 Source: patient Mode of arrival: ambulatory Limitations: no limitations History of Present Illness HPI Narrative: Patient with history of depression substance abuse been increasingly depressed was admitted to [facility] discharge 1 week ago comes back as patient discharged started using drugs again feels bad about and wants stop using drugs again. Patient feels worthless does want to live anymore denies any SI plan Related Data Previous Rx's Medication Instructions Recorded albuterol sulfate 90 mcg/actuation 2 puff inhalation Q6H #1 inhaler 11/26/22 aerosol inhaler diphenhydramine HCl 25 mg capsule 50 mg PO BEDTIME PRN Sleep #30 caps 11/26/22 fluoxetine 20 mg capsule 20 mg PO DAILY #30 caps 11/26/22 folic acid 1 mg tablet 1 mg PO DAILY #30 tabs 11/26/22 hydroxyzine HCl 50 mg tablet 50 mg PO Q6H PRN Anxiety #30 tabs 11/26/22 loratadine 10 mg tablet 10 mg PO DAILY PRN allergy 11/26/22 symptoms #30 tabs mirtazapine 7.5 mg tablet 7.5 mg PO BEDTIME #30 tabs 11/26/22 multivitamin (Daily-Jam tablet) 1 tab PO DAILY #30 tabs 11/26/22 propranolol 10 mg tablet 5 mg PO BID PRN anxiety #60 tabs 11/26/22 thiamine mononitrate (vit B1) 100 100 mg PO DAILY #30 tabs 11/26/22 mg tablet Allergies Allergy/AdvReac Type Severity Reaction Status Date / Time shellfish derived AdvReac Swelling Verified 12/01/22 23:54 Review of Systems Review of Systems: Yes all other systems are reviewed and are negative [facility] Past Medical History Medical History Asthma Depression with suicidal ideation Polysubstance abuse Social History Social History Housing: House Do you presently have visiting nurse or other home services: No Patient Tobacco Use Status: Never used Tobacco e-Cigarette/Vaping Use: Never Used Substance Use Type: Crack/Cocaine and Marijuana Advance Directives: No Advance Directives Information Provided: No service: No Sexual orientation: Decline to Answer Physical Exam Vital Signs: Vital Signs: Last Vital Signs Temp 97.7 F 12/01/22 23:43 Pulse 104 H 12/01/22 23:43 Resp 20 12/01/22 23:43 BP 146/96 H 12/01/22 23:43 Pulse Ox 100 12/01/22 23:43 BMI result Body Mass Index 30.1 Appearance: Alert. Oriented X3. No acute distress. Eyes: PERRLA, No Nystagmus ENT: Pharynx normal. Oral Mucosa moist Neck: Normal inspection. Neck supple. CVS: Normal heart rate and rhythm. Pulses normal. Respiratory: No respiratory distress. Equal air entry bilateral, no wheezing/rales/rhonchi Abdomen: Soft and nontender. Bowel sounds are present, no mass palpable, no CVA tenderness Skin: Skin warm and dry. Normal skin color. Normal skin turgor. Extremities: No lower extremity edema. No calf tenderness psych; depressed mood no SI or HI no hallucination/delusions Neuro: Oriented X 3. No motor deficit. No sensory deficit.No cerebellar signs , cranial nerves II-XII intact Medications Administered Generic Name Dose Route Start Last Admin Trade Name Freq PRN Reason Stop Dose Admin Albuterol Sulfate 2 puff 12/02/22 04:15 12/02/22 04:16 Albuterol Sulfate 90 Mcg 8 Gm Inhaler INHALE Not Given Q6H [facility] Medical Decision Making Medical Decision Making [facility] Narrative: Patient with depression substance abuse comes here for increased depression will get care team involved for evaluation Lab Data [facility] Lab Attestation statement: I reviewed the patient's lab results. 12/02/22 00:35 12/02/22 00:35 Labs: Lab Results 12/02/22 12/02/22 12/02/22 Range/Units 00:21 00:21 00:21 WBC (4.8-10.8) X10*3/uL RBC (4.20-5.50) X10*6/uL Hgb (12.0-16.0) g/dl Hct (37.0-47.0) % MCV (80.0-98.0) fL MCH (27.0-33.0) pg MCHC (31.0-35.0) g/dl RDW (11.0-16.0) % Plt Count (160-400) X10*3/uL MPV (9.4-12.3) fL Immature Gran % (Auto) (0.0-0.4) % Neut % (Auto) (45-73) % Lymph % (Auto) (20-40) % [place] % (Auto) (2-11) % Eos % (Auto) (0-4) % Baso % (Auto) (0-2) % Lymph # (Auto) (1.2-4.9) X10*3/uL [place] # (Auto) (0.1-1.2) X10*3/uL Eos # (Auto) (0.0-0.4) X10*3/uL Baso # (Auto) (0.0-0.2) X10*3/uL Abs Immat Gran (auto) (0.00-0.03) X10*3/uL Absolute Neuts (auto) (2.0-8.3) x10*3/uL Absolute Nucleated RBC (0.0-0.012) X10*3/uL Nucleated RBC % (auto) (0.0-0.2) /100WBC Sodium (135-145) mmol/L Potassium (3.3-5.1) mmol/L Chloride (96-108) mmol/L Carbon Dioxide (22-29) mmol/L Anion Gap (12-20) BUN (9-16) mg/dL Creatinine (0.5-1.4) mg/dL Estim Creat Clear Calc Estimated GFR Random Glucose (60-115) mg/dL Calcium (8.4-10.2) mg/dL Total Bilirubin (0.0-1.0) mg/dL AST (5-31) U/L ALT (0-31) U/L Alkaline Phosphatase (39-117) U/L Total Protein (6.5-8.0) g/dL Albumin (3.5-5.0) g/dL Urine Color Yellow Urine Appearance Clear Urine pH 6.0 (5.0-9.0) Ur Specific [place] 1.015 (1.005-1.025) Urine Protein Negative (Neg-Trace) mg/dL Urine Glucose (UA) Negative (Negative) mg/dL Urine Ketones Negative (Negative) mg/dL Urine Blood Negative (Negative) Urine Nitrite Negative (Negative) Ur Leukocyte Esterase Negative (Negative) Urine Test (NEGATIVE) Urine Opiates Screen Not Detected (Not Detect) Urine Fentanyl Screen Not Detected (Not Detect) Ur Barbiturates Screen Not Detected (Not Detect) Ur Phencyclidine Scrn Not Detected (Not Detect) Ur Amphetamines Screen Not Detected (Not Detect) U Benzodiazepines Scrn Not Detected (Not Detect) Urine Cocaine Screen POSITIVE H (Not Detect) U Marijuana (THC) Screen POSITIVE H (Not Detect) Ethyl Alcohol mg/dL COVID-19 (ION) Negative (Negative) COVID-19 Clin Com See Note 12/02/22 12/02/22 12/02/22 Range/Units 00:21 00:35 00:35 WBC 10.1 (4.8-10.8) X10*3/uL RBC 4.24 (4.20-5.50) X10*6/uL Hgb 12.9 (12.0-16.0) g/dl Hct 37.8 (37.0-47.0) % MCV 89.2 (80.0-98.0) fL MCH 30.4 (27.0-33.0) pg MCHC 34.1 (31.0-35.0) g/dl RDW 11.9 (11.0-16.0) % Plt Count 215 (160-400) X10*3/uL MPV 10.7 (9.4-12.3) fL Immature Gran % (Auto) 0.1 (0.0-0.4) % Neut % (Auto) 55.5 (45-73) % Lymph % (Auto) 30.0 (20-40) % [place] % (Auto) 7.1 (2-11) % Eos % (Auto) 6.5 H (0-4) % Baso % (Auto) 0.8 (0-2) % Lymph # (Auto) 3.0 (1.2-4.9) X10*3/uL [place] # (Auto) 0.7 (0.1-1.2) X10*3/uL Eos # (Auto) 0.7 H (0.0-0.4) X10*3/uL Baso # (Auto) 0.1 (0.0-0.2) X10*3/uL Abs Immat Gran (auto) 0.01 (0.00-0.03) X10*3/uL Absolute Neuts (auto) 5.6 (2.0-8.3) x10*3/uL Absolute Nucleated RBC 0.000 (0.0-0.012) X10*3/uL Nucleated RBC % (auto) 0.0 (0.0-0.2) /100WBC Sodium 138 (135-145) mmol/L Potassium 3.8 (3.3-5.1) mmol/L Chloride 105 (96-108) mmol/L Carbon Dioxide 22 (22-29) mmol/L Anion Gap 15 (12-20) BUN 11 (9-16) mg/dL Creatinine 0.72 (0.5-1.4) mg/dL Estim Creat Clear Calc 110.2 Estimated GFR > 60 Random Glucose 82 (60-115) mg/dL Calcium 9.2 (8.4-10.2) mg/dL Total Bilirubin 0.6 (0.0-1.0) mg/dL AST 23 (5-31) U/L ALT 33 H (0-31) U/L Alkaline Phosphatase 101 (39-117) U/L Total Protein 7.2 (6.5-8.0) g/dL Albumin 4.4 (3.5-5.0) g/dL Urine Color Urine Appearance Urine pH (5.0-9.0) Ur Specific [place] (1.005-1.025) Urine Protein (Neg-Trace) mg/dL Urine Glucose (UA) (Negative) mg/dL Urine Ketones (Negative) mg/dL Urine Blood (Negative) Urine Nitrite (Negative) Ur Leukocyte Esterase (Negative) Urine Test NEGATIVE (NEGATIVE) Urine Opiates Screen (Not Detect) Urine Fentanyl Screen (Not Detect) Ur Barbiturates Screen (Not Detect) Ur Phencyclidine Scrn (Not Detect) Ur Amphetamines Screen (Not Detect) U Benzodiazepines Scrn (Not Detect) Urine Cocaine Screen (Not Detect) U Marijuana (THC) Screen (Not Detect) Ethyl Alcohol 24 mg/dL COVID-19 (ION) (Negative) COVID-19 Clin Com Discharge Plan Discharge Clinical Impression: Depression, Substance abuse Patient Disposition: Still a Patient Prescriptions: No Action hydroxyzine HCl 50 mg Tablet 50 mg PO Q6H PRN (Reason: Anxiety) Qty: 30 0RF propranolol 10 mg Tablet 5 mg PO BID PRN (Reason: anxiety) Qty: 60 0RF Protocol: Hold for SBP/HR < HOLD for SBP < : 90 HOLD for HR < : 60 diphenhydramine HCl 25 mg Capsule 50 mg PO BEDTIME PRN (Reason: Sleep) Qty: 30 0RF folic acid 1 mg Tablet 1 mg PO DAILY Qty: 30 0RF fluoxetine 20 mg Capsule 20 mg PO DAILY Qty: 30 0RF loratadine 10 mg Tablet 10 mg PO DAILY PRN (Reason: allergy symptoms) Qty: 30 0RF mirtazapine 7.5 mg Tablet 7.5 mg PO BEDTIME Qty: 30 0RF multivitamin [Daily-Jam] Tablet 1 tab PO DAILY Qty: 30 0RF thiamine mononitrate (vit B1) 100 mg Tablet 100 mg PO DAILY Qty: 30 0RF albuterol sulfate 90 mcg/actuation HFA aerosol inhaler 2 puff INHALATION Q6H Qty: 1 0RF Interventions: Wirt-Suicide Risk Severity Scale Last Done: 12/02/22 06:08
[2022-12-02] MEDS: FLUoxetine HCl 20 MG CAPSULE PO (08:07)
[2022-12-02] MEDS: Multivitamin TABLET 1 TAB PO (08:07)
[2022-12-02] MEDS: Folic Acid 1 MG TABLET PO (08:08)
[2022-12-02] MEDS: Thiamine HCL 100 MG TABLET PO (08:08)
--- NOTE | 2022-12-02 11:33 | MHC.CARE ---
patient is a voluntary inpatient psych bed search at this time.
[2022-12-02 13:39] VITALS: BP 107/68; PULSE 68; RESP 18; TEMP 36.9; O2SAT 98
--- NOTE | 2022-12-02 13:39 | PC.NURSE ---
Nurse to nurse for pt given to Hiro ESCOBAR on m3.
[2022-12-02 15:45] VITALS: BP 109/60; PULSE 74; RESP 18; TEMP 36.6; O2SAT 98
--- NOTE | 2022-12-02 15:52 | PC.ADMIT ---
Patient is a 32 y/o qatari female admitted who self presented to the [facility] with increaseed
--- NOTE | 2022-12-02 15:54 | PC.ADMIT ---
Patient is a 32 y/o female who self presented to the [facility] for increased depression with SI and no plan. Pt was admitted to [facility] on a CV. The pt was recently discharged from [facility] on 11/26, at which time she picked up her prescribed medications, but only took them once before going on 3 day binge of cocaine and ETOH. Pt reported the one time she took the medications was after she drank all day and then woke up swollen. Pt presented on the floor as depressed, anxious and worthless. She was A&O x3, calm and cooperative, had good eye contact, and a soft tone. Pts goal is to get on medications to help her feel less depressed so she won't feel a need to use substances, pt became tearful when discussing her addictions. Pt has a hx of punching self and cutting when she gets overwhelmed. Pt reports she can come to self if feeling overwhelmed. Pt has a hx of asthma and denies any acute medical concerns. Pt placed on 15 minute safety checks.
[2022-12-02] MEDS: Propranolol HCL 10 MG TABLET 5 MG PO (16:46)
[2022-12-02] MEDS: hydrOXYzine HCL 50 MG TABLET PO ×2 (16:46→21:14)
[2022-12-02] MEDS: Albuterol Sulfate 90 MCG 8 GM INHALER 2 PUFF INHALE ×2 (17:56→21:06)
[2022-12-02 20:20] VITALS: BP 119/68; PULSE 79; RESP 18; TEMP 36.8; O2SAT 95
[2022-12-02] MEDS: Mirtazapine 7.5 MG TABLET PO (21:05)
[2022-12-02] MEDS: diphenhydrAMINE HCL 25 MG CAPSULE 50 MG PO (22:26)
[2022-12-03 00:19] VITALS: PULSE 91; RESP 20; O2SAT 95
[2022-12-03] MEDS: Propranolol HCL 10 MG TABLET 5 MG PO (00:41)
[2022-12-03] MEDS: traZODone HCL 50 MG TABLET PO (00:42)
--- NOTE | 2022-12-03 00:46 | PC.NURSE ---
Mehnaz c/o difficulty breathing and had an audible wheeze despite having received her rescue inhaler earlier in the evening. a 1 time order for a nebulizer treatment was obtained and the medication was administered by respiratory therapy with positive effect AEB: increased oxygen saturation level, decreased wheezing and the patient stating that her breathing was eased after the treatment. monitor for continued respiratory concerns
[2022-12-03] MEDS: Albuterol Sulfate 90 MCG 8 GM INHALER 2 PUFF INHALE (03:18)
[2022-12-03] MEDS: hydrOXYzine HCL 50 MG TABLET PO (04:41)
[2022-12-03] MEDS: Loratadine 10 MG TABLET PO (04:41)
[2022-12-03] MEDS: Acetaminophen 325 MG TABLET 650 MG PO (05:07)
[2022-12-03 05:28] VITALS: BP 122/88; PULSE 93; RESP 22; TEMP 36.2; O2SAT 88
--- NOTE | 2022-12-03 05:29 | P.HPPS_ITS ---
HPI Date of Service: 12/03/22 Chief Complaint: SI Sources of Information: patient interviewed HPI Narrative: pt is 32 yo female with hx of MDD, substance abuse, recently discharged from several days ago who re-presents for depresson/SI in face of not taking meds and relapse. On admission pt had Asthma Exacerbation and was transferred to ED/medical service Past Psychiatric History: Met with patient. Chart reviewed. Discussed with nursing. Overall presented to the ED with depression and suicidal thoughts. Substance use. Recent increase in self-harm by biting self hitting self. Tox positive for cocaine, fentanyl. Also daily drinking. Today patient reports having lifelong episodes poor frustration tolerance, getting angry and losing temper and lashing out with intermittent episodes of hurting herself by biting. Reports this happens if there was something upsetting such as financial stress. Reports substances also make things worse. Reports sleep has recently been very difficult. Anxiety has been high. Intermittent thoughts of suicide. Reports she had not self harmed in quite a long time until 1 week ago. No psychosis. No manic symptoms. Endorses history of low mood, anxiety, motivation and sleep disturbance even when sober at times. Snorts cocaine a few times per week. Daily drinking. No history of detox, DTs or seizures. Informed urine was positive for fentanyl. Very surprised by same and cocaine may have been laced with fentanyl. Was sober for 2 years up until 1 year ago. 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 We discussed potential treatment options including therapy, perhaps rehab and medications. Very eager to return to work as she has missed lots of time. Agreed to start Prozac and utilize low-dose Seroquel for sleep and anxiety. Also wants to speak with treatment team tomorrow about a letter for her job so they know she is in the hospital. Medical Evaluation Reviewed: Yes [facility] Medical History Asthma Depression with suicidal ideation Polysubstance abuse Social History: Living with girlfriend of 1 year. Reports this as a positive and supportive relationship. 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 Calling out a lot over the last 1 month. Has been in the [place] for around 4 years and was in [place] prior to that. 0 children. No legal issues. Diagnostics Vital Signs (24Hr): Vital Signs - 24 hr 12/02/22 13:39 12/02/22 15:45 12/02/22 20:20 Temperature 98.4 F 97.8 F 98.2 F Pulse Rate 68 74 79 Respiratory Rate 18 18 18 Blood Pressure 107/68 109/60 119/68 Pulse Oximetry 98 98 95 Oxygen Delivery Method Room Air Room Air Room Air 12/03/22 00:19 Temperature Pulse Rate 91 Respiratory Rate 20 Blood Pressure Pulse Oximetry Oxygen Delivery Method BMI result Body Mass Index 30.1 Labs 12/02/22 00:35 12/02/22 00:35 Labs: Laboratory Results - last 48 hr 12/02/22 12/02/22 12/02/22 00:21 00:21 00:21 WBC RBC Hgb Hct MCV MCH MCHC RDW Plt Count MPV Immature Gran % (Auto) Neut % (Auto) Lymph % (Auto) [place] % (Auto) Eos % (Auto) Baso % (Auto) Lymph # (Auto) [place] # (Auto) Eos # (Auto) Baso # (Auto) Abs Immat Gran (auto) Absolute Neuts (auto) Absolute Nucleated RBC Nucleated RBC % (auto) Sodium Potassium Chloride Carbon Dioxide Anion Gap BUN Creatinine Estim Creat Clear Calc Estimated GFR Random Glucose Calcium Total Bilirubin AST ALT Alkaline Phosphatase Total Protein Albumin Urine Color Yellow Urine Appearance Clear Urine pH 6.0 Ur Specific [place] 1.015 Urine Protein Negative Urine Glucose (UA) Negative Urine Ketones Negative Urine Blood Negative Urine Nitrite Negative Ur Leukocyte Esterase Negative Urine Test Urine Opiates Screen Not Detected Urine Fentanyl Screen Not Detected Ur Barbiturates Screen Not Detected Ur Phencyclidine Scrn Not Detected Ur Amphetamines Screen Not Detected U Benzodiazepines Scrn Not Detected Urine Cocaine Screen POSITIVE H U Marijuana (THC) Screen POSITIVE H Ethyl Alcohol COVID-19 (ION) Negative COVID-19 Clin Com See Note 12/02/22 12/02/22 12/02/22 00:21 00:35 00:35 WBC 10.1 RBC 4.24 Hgb 12.9 Hct 37.8 MCV 89.2 MCH 30.4 MCHC 34.1 RDW 11.9 Plt Count 215 MPV 10.7 Immature Gran % (Auto) 0.1 Neut % (Auto) 55.5 Lymph % (Auto) 30.0 [place] % (Auto) 7.1 Eos % (Auto) 6.5 H Baso % (Auto) 0.8 Lymph # (Auto) 3.0 [place] # (Auto) 0.7 Eos # (Auto) 0.7 H Baso # (Auto) 0.1 Abs Immat Gran (auto) 0.01 Absolute Neuts (auto) 5.6 Absolute Nucleated RBC 0.000 Nucleated RBC % (auto) 0.0 Sodium 138 Potassium 3.8 Chloride 105 Carbon Dioxide 22 Anion Gap 15 BUN 11 Creatinine 0.72 Estim Creat Clear Calc 110.2 Estimated GFR > 60 Random Glucose 82 Calcium 9.2 Total Bilirubin 0.6 AST 23 ALT 33 H Alkaline Phosphatase 101 Total Protein 7.2 Albumin 4.4 Urine Color Urine Appearance Urine pH Ur Specific [place] Urine Protein Urine Glucose (UA) Urine Ketones Urine Blood Urine Nitrite Ur Leukocyte Esterase Urine Test NEGATIVE Urine Opiates Screen Urine Fentanyl Screen Ur Barbiturates Screen Ur Phencyclidine Scrn Ur Amphetamines Screen U Benzodiazepines Scrn Urine Cocaine Screen U Marijuana (THC) Screen Ethyl Alcohol 24 COVID-19 (ION) COVID-19 Clin Com Meds/Allergies Allergies Allergies Allergy/AdvReac Type Severity Reaction Status Date / Time shellfish derived AdvReac Swelling Verified 12/01/22 23:54 Mental Status Exam Mental Status Exam Narrative: did not assess as was transferred to medical service Assessment & Plan Assessment & Plan (1) Mood disorder: Status: Acute Code(s): F39 - Unspecified mood [affective] disorder (2) Substance abuse: Status: Acute Code(s): F19.10 - Other psychoactive substance abuse, uncomplicated (3) Asthma exacerbation: Status: Acute Code(s): J45.901 - Unspecified asthma with (acute) exacerbation Plan pt is 32 yo female with hx of MDD, substance abuse, recently discharged from several days ago who re-presents for depresson/SI in face of not taking meds and relapse. ? On admission pt had Asthma Exacerbation and was transferred to ED/medical service Patient educated on: diagnosis (by nurse, hospitalist) Reason for continued inpatient stay Substantial Risk for: other Time Spent With Patient Time: Total time managing care of this patient today ____ minutes.
--- NOTE | 2022-12-03 05:37 | PC.NURSE ---
Mehnaz has been struggling with respiratory discomfort throughout the night her oxygen level has ranged between 98% for a high to 88% for a low. she is wheezy and tight throughout. and has started utilizing ancillary muscles to breath. throughout the night she has received Ventolin inhalers X.2 and a nebulizer X's 2 with the last one being administered at this time. patient has been very restless with minimal broken sleep. her latest vital signs are 97.1, 22RR, P93, B/P 122/88 manual. with a saturation level of 88%. patient to be transferred to the ER following current respiratory treatment. patient is alert and oriented X'3 and independent at base line ,
--- NOTE | 2022-12-03 05:38 | P.DS_ITS ---
DS: Providers Provider Date of Service: 12/03/22 Date of admission: 12/02/22 14:03 Date of discharge: 12/03/22 Primary care physician: Unknown Physician Attending physician on admission: William Amor Consults: 12/03/22 05:09 Consult to Hospitalist Stat Consulting Provider: Hospitalist Reason For Exam: continued wheezing Attending physician on discharge: William Amor DS: Medications Discharge Medications Home Medications: Previous Rx's Medication Instructions Recorded albuterol sulfate 90 mcg/actuation 2 puff inhalation Q6H #1 inhaler 11/26/22 aerosol inhaler diphenhydramine HCl 25 mg capsule 50 mg PO BEDTIME PRN Sleep #30 caps 11/26/22 fluoxetine 20 mg capsule 20 mg PO DAILY #30 caps 11/26/22 folic acid 1 mg tablet 1 mg PO DAILY #30 tabs 11/26/22 hydroxyzine HCl 50 mg tablet 50 mg PO Q6H PRN Anxiety #30 tabs 11/26/22 loratadine 10 mg tablet 10 mg PO DAILY PRN allergy 11/26/22 symptoms #30 tabs mirtazapine 7.5 mg tablet 7.5 mg PO BEDTIME #30 tabs 11/26/22 multivitamin (Daily-Jam tablet) 1 tab PO DAILY #30 tabs 11/26/22 propranolol 10 mg tablet 5 mg PO BID PRN anxiety #60 tabs 11/26/22 thiamine mononitrate (vit B1) 100 100 mg PO DAILY #30 tabs 11/26/22 mg tablet Mental Status Exam Mental Status Exam Narrative: did not assess as was transferred to medical service Data Data Completed and Pending Completed studies during hospitalization [Text1]: 12/02/22 12/02/22 12/02/22 00:21 00:21 00:21 WBC RBC Hgb Hct MCV MCH MCHC RDW Plt Count MPV Immature Gran % (Auto) Neut % (Auto) Lymph % (Auto) [place] % (Auto) Eos % (Auto) Baso % (Auto) Lymph # (Auto) [place] # (Auto) Eos # (Auto) Baso # (Auto) Abs Immat Gran (auto) Absolute Neuts (auto) Absolute Nucleated RBC Nucleated RBC % (auto) Sodium Potassium Chloride Carbon Dioxide Anion Gap BUN Creatinine Estim Creat Clear Calc Estimated GFR Random Glucose Calcium Total Bilirubin AST ALT Alkaline Phosphatase Total Protein Albumin Urine Color Yellow Urine Appearance Clear Urine pH 6.0 Ur Specific [place] 1.015 Urine Protein Negative Urine Glucose (UA) Negative Urine Ketones Negative Urine Blood Negative Urine Nitrite Negative Ur Leukocyte Esterase Negative Urine Test Urine Opiates Screen Not Detected Urine Fentanyl Screen Not Detected Ur Barbiturates Screen Not Detected Ur Phencyclidine Scrn Not Detected Ur Amphetamines Screen Not Detected U Benzodiazepines Scrn Not Detected Urine Cocaine Screen POSITIVE H U Marijuana (THC) Screen POSITIVE H Ethyl Alcohol COVID-19 (ION) Negative COVID-19 Clin Com See Note 12/02/22 12/02/22 12/02/22 00:21 00:35 00:35 WBC 10.1 RBC 4.24 Hgb 12.9 Hct 37.8 MCV 89.2 MCH 30.4 MCHC 34.1 RDW 11.9 Plt Count 215 MPV 10.7 Immature Gran % (Auto) 0.1 Neut % (Auto) 55.5 Lymph % (Auto) 30.0 [place] % (Auto) 7.1 Eos % (Auto) 6.5 H Baso % (Auto) 0.8 Lymph # (Auto) 3.0 [place] # (Auto) 0.7 Eos # (Auto) 0.7 H Baso # (Auto) 0.1 Abs Immat Gran (auto) 0.01 Absolute Neuts (auto) 5.6 Absolute Nucleated RBC 0.000 Nucleated RBC % (auto) 0.0 Sodium 138 Potassium 3.8 Chloride 105 Carbon Dioxide 22 Anion Gap 15 BUN 11 Creatinine 0.72 Estim Creat Clear Calc 110.2 Estimated GFR > 60 Random Glucose 82 Calcium 9.2 Total Bilirubin 0.6 AST 23 ALT 33 H Alkaline Phosphatase 101 Total Protein 7.2 Albumin 4.4 Urine Color Urine Appearance Urine pH Ur Specific [place] Urine Protein Urine Glucose (UA) Urine Ketones Urine Blood Urine Nitrite Ur Leukocyte Esterase Urine Test NEGATIVE Urine Opiates Screen Urine Fentanyl Screen Ur Barbiturates Screen Ur Phencyclidine Scrn Ur Amphetamines Screen U Benzodiazepines Scrn Urine Cocaine Screen U Marijuana (THC) Screen Ethyl Alcohol 24 COVID-19 (ION) COVID-19 Clin Com DS: Summary Hospital Course Hospital Course: pt is 32 yo female with hx of MDD, substance abuse, recently discharged from several days ago who re-presents for depresson/SI in face of not taking meds and relapse. ? On admission pt had Asthma Exacerbation and was transferred to ED/medical service Time Spent with Patient Time attestation: Total time managing care of this patient today ____ minutes. Discharge Plan Discharge Anticipated Discharge Date/Time: 12/03/22 05:34 Patient Disposition: Xfer Other Discharge Diagnosis: MDD; asthma exacerbation Referrals: Physician,Unknown J [Primary Care Provider] - 1 Week Discharge Medications: Continued hydroxyzine HCl 50 mg Tablet 50 mg PO Q6H PRN (Reason: Anxiety) Qty: 30 0RF propranolol 10 mg Tablet 5 mg PO BID PRN (Reason: anxiety) Qty: 60 0RF Protocol: Hold for SBP/HR < HOLD for SBP < : 90 HOLD for HR < : 60 diphenhydramine HCl 25 mg Capsule 50 mg PO BEDTIME PRN (Reason: Sleep) Qty: 30 0RF folic acid 1 mg Tablet 1 mg PO DAILY Qty: 30 0RF fluoxetine 20 mg Capsule 20 mg PO DAILY Qty: 30 0RF loratadine 10 mg Tablet 10 mg PO DAILY PRN (Reason: allergy symptoms) Qty: 30 0RF mirtazapine 7.5 mg Tablet 7.5 mg PO BEDTIME Qty: 30 0RF multivitamin [Daily-Jam] Tablet 1 tab PO DAILY Qty: 30 0RF thiamine mononitrate (vit B1) 100 mg Tablet 100 mg PO DAILY Qty: 30 0RF albuterol sulfate 90 mcg/actuation HFA aerosol inhaler 2 puff INHALATION Q6H Qty: 1 0RF Discharge Orders: Discharge Order (Routine); Ordered 12/03/22 Ordered By: William Amor Diet: Advance to usual diet Activity on Discharge: As tolerated Stand Alone Forms: Patient Portal Discharge page Care Plan Goals: transfer to ED Health Concerns: asthma exacerbation Plan of Treatment: transfer to ED Assessment: transfered to ED
[2022-12-03 05:40] VITALS: PULSE 107; RESP 20; O2SAT 88
== END 2022-12-03 06:00 | disposition other institution (70) | DRG 754 ==
LOC: HO.ED 12-02 07:04 → HO.PADLT16 12-02 14:11
PROVIDERS: Admitting Provider Psychiatry & Neurology Psychiatry; Emergency Provider Internal Medicine; Visit Provider Psychiatry & Neurology Psychiatry
DX: F32.9 Major depressive disorder, single episode, unspecified (principal); R45.851 Suicidal ideations; J45.901 Unspecified asthma with (acute) exacerbation; Z20.822 Contact with and (suspected) exposure to COVID-19; Y90.1 Blood alcohol level of 20-39 mg/100 ml; Z79.899 Other long term (current) drug therapy
CPT/HCPCS: 36415; 80053; 80307; 81003; 81025; 82077; 85025; 87635; 93005; 94640; 99285; S9485

== ENCOUNTER 2022-12-03 07:36 | Observation (INO) | payer OTHER, SELFPAY ==
[2022-12-03] VITALS (7 sets, daily range): BP systolic 102–131; BP diastolic 55–78; PULSE 69–102; RESP 18–22; TEMP 36.3–36.8; O2SAT 94–100
--- NOTE | ~2022-12-03 | XR_ITS ---
EXAMINATION: XR CHEST CLINICAL INFORMATION: Cough shortness of breath COMPARISON: None available. TECHNIQUE: Frontal view of the chest was obtained. FINDINGS: Slight bibasilar atelectasis, left greater than right. No pneumothorax. Trachea is midline. Cardiomediastinal silhouette is not enlarged. No large pleural effusion. Osseous structures are intact. XR/XR chest 1V IMPRESSION: Slight bibasilar atelectasis, left greater than right.
--- NOTE | 2022-12-03 07:48 | P.HPHOSP_ITS ---
History of Present Illness Date of Service: 12/03/22 Attending physician on admission: Darion Reno Chief Complaint: sob, cough, wheezing 32-year-old female with history of mild intermittent asthma, cocaine abuse, alcohol abuse, and depression/anxiety transferred from Psychiatry where she had been admitted for substance abuse, depression with SI, to hospitalist service for management of acute asthma exacerbation. She states around 22:00 last night developed significant shortness of breath, wheezing, and productive cough. She has also had sore throat which she attributes to her cough and headache. Symptoms were not improving with albuterol treatments and had a single episode of hypoxia at 88% she was recommended for transfer to medical floors. She states she has been hospitalized for asthma in the past, several years ago, but has never been intubated. She has been regularly using crack cocaine, last use was 2 days ago. She has also been consuming alcohol on a daily basis recently to help manage her symptoms stating she has been consuming about 5 or more drinks per day, last drink was 2 days ago. She denies any withdrawal symptoms and has never had withdrawal seizure. However, she has been anxious with mild tachycardia to 107. She denies any fevers, chills, congestion, abdominal pain, nausea, vomiting, lightheadedness, palpitations, chest pain. No known sick contacts. On arrival to med/surg, O2 saturation ranging 93-97%. She reports feeling depressed, but denies any active SI at this time. Review of Systems Review of Systems: General: No fevers, malaise, unintentional weight loss HEENT: No blurred vision, diplopia. No sore throat, nasal congestion, rhinorrhea, sinus pain, ear pain Cardiovascular: No chest pain, palpitations, or leg edema Respiratory: + shortness of breath, +wheezing, +cough GI: No abdominal pain, nausea, vomiting, diarrhea, constipation, melena, hematochezia : No dysuria, hematuria, increased urinary frequency, decreased urinary output MSK: No myalgia, back pain Neuro: No headaches, weakness, paresthesias Skin: No rashes or lesions [facility] Medical History (Updated 12/03/22 @ 07:54 by JOANNA Lazar) Alcohol abuse Asthma Depression with suicidal ideation Polysubstance abuse Social History (Updated 12/03/22 @ 07:55 by JOANNA Lazar) Household Members: Significant Other Housing: Apartment Do you presently have visiting nurse or other home services: No Alcohol intake: current Alcohol intake frequency: 3 or more drinks per day Patient Tobacco Use Status: Never used Tobacco e-Cigarette/Vaping Use: Never Used Substance Use Type: Crack/Cocaine Advance Directives: No service: No Sexual orientation: Decline to Answer Meds Allergies Allergy/AdvReac Type Severity Reaction Status Date / Time shellfish derived AdvReac Swelling Verified 12/01/22 23:54 Active Medications: Current Medications Acetaminophen (Acetaminophen 325 Mg Tablet) 650 mg PO Q6H PRN PRN Reason: Pain, Mild (Pain Scale 1-3) Albuterol Sulfate 2.5 mg/ (Ipratropium [place] 0.5 mg) 0 mg INHALE RQ4H WHILE AWAKE [place] Docusate Sodium (Docusate Sodium 100 Mg Capsule) 100 mg PO DAILY PRN PRN Reason: Constipation Enoxaparin Sodium (Enoxaparin Sodium 40 Mg/0.4 Ml Syringe) 40 mg SUBCUT Q24H [place] Methylprednisolone Sodium Succinate (Methylprednisolone Sod Succ 40 Mg/Ml Vial) 40 mg IVPUSH Q12H [place] Ondansetron HCl (Ondansetron Hcl 4 Mg/2 Ml Vial) 4 mg IVPUSH Q8H PRN PRN Reason: Nausea and Vomiting Sodium Chloride (0.9 % Sodium Chloride Flush 3 Ml Syringe) 3 ml IVFLUSH QSHIFT [place] Physical Exam Vital Signs and Narrative: Vital Signs: Vital Signs Temp Pulse Resp BP Pulse Ox O2 Del Method 12/03/22 07:58 75 22 H 12/03/22 07:53 98.0 F 88 19 131/78 94 Room Air Constitutional - Awake and Alert, No apparent distress Eyes - PERRLA, EOMI Cardiovascular - S1S2, RRR, No edema Respiratory - Normal lung expansion, Normal respiratory effort, No respiratory distress, coarse lung sounds with diffuse expiratory wheezing bilaterally Gastrointestinal - NT / ND; +BS; No rebound or guarding Extremities - no calf tenderness bilaterally, no swelling Musculoskeletal - Normal inspection, normal ROM Skin - Warm/Dry Neurological - Alert & oriented x3, CN II-XII in tact, 5/5 strength BUE and BLE Psychological - Appropriate affect Assessment and Plan (1) Asthma exacerbation: Status: Acute (2) Alcohol abuse: Status: Acute Plan 32-year-old female with history of mild intermittent asthma, cocaine abuse, alcohol abuse, and depression/anxiety transferred from Psychiatry where she had been admitted for substance abuse, depression with SI, to hospitalist service for management of acute asthma exacerbation. She will be observed for further management. #Acute asthma exacerbation -No hypoxia or respiratory distress -IV methylprednisolone 40 mg b.i.d. -DuoNebs q.4h while awake -albuterol q.2h p.r.n. #Alcohol abuse -Patient consuming 5+ alcoholic beverages daily for at least several weeks -Monitor on CIWA. Current score 7 on my exam -Initiate phenobarb per protocol -IV Thiamine x3 doses, then transition to PO (Init 12/03). Continue PO folic acid #Depression/anxiety -Continue meds per psychiatry -M3 admission was voluntary, no section 12 -Care team consult once medically cleared for transfer back to psychiatry -Consult for sitter #Cocaine abuse -Plan to discharge to psychiatry for further management of substance abuse DVT prophylaxis- lovenox Full code Time Spent With Patient Time: Total time managing care of this patient today ____ minutes. Quality Stroke Does the patient have a stroke diagnosis?: No VTE Prior VTE?: No VTE Risk Level:: Medical - moderate - high VTE Device Contraindication: Treatment Not Indicated VTE Drug Contraindication: N/A - Med Ordered
[2022-12-03] MEDS: Thiamine HCL 100 MG in 0.9 % Sodium Chloride 100 ML 202 MG IV (09:01)
[2022-12-03] MEDS: Enoxaparin Sodium 40 MG/0.4 ML SYRINGE SUBCUT (09:01)
[2022-12-03] MEDS: Acetaminophen 325 MG TABLET 650 MG PO (09:02)
[2022-12-03] MEDS: PHENobarbitaL sodium 130 MG/ML IM ONCE 170 MG IM (09:02)
[2022-12-03] MEDS: methylPREDNISolone Sod Succ 40 MG/ML VIAL IVPUSH ×2 (09:02→21:00)
[2022-12-03] MEDS: 0.9 % Sodium Chloride Flush 3 ML SYRINGE IVFLUSH ×3 (09:03→21:01)
[2022-12-03] MEDS: Folic Acid 1 MG TABLET PO (09:35)
[2022-12-03] MEDS: Multivitamin TABLET 1 TAB PO (09:35)
[2022-12-03] MEDS: FLUoxetine HCl 20 MG CAPSULE PO (09:35)
[2022-12-03] MEDS: hydrOXYzine HCL 25 MG TABLET PO ×3 (09:38→21:01)
[2022-12-03] MEDS: Magnesium Sulfate/H2O 2 GM/50 ML PIGGYBACK IV (10:26)
[2022-12-03] MEDS: PHENobarbitaL sodium 130 MG/ML VIAL IM Q3Hx2 IM ×2 (12:01→14:56)
[2022-12-03 13:26] LABS: Adenovirus PCR Not Detected (Not Detect.); Bordetella parapertussis PCR Not Detected (Not Detect.); Bordetella pertussis PCR Not Detected (Not Detect.); Chlamydia pneumoniae PCR Not Detected (Not Detect.); Coronavirus 229E PCR Not Detected (Not Detect.); Coronavirus HKU1 PCR Not Detected (Not Detect.); Coronavirus NL63 PCR Not Detected (Not Detect.); Coronavirus OC43 PCR Not Detected (Not Detect.); Human metapneumovirus PCR Not Detected (Not Detect.); Influenza A PCR Not Detected (Not Detect.); Influenza B PCR Not Detected (Not Detect.); Mycoplasma pneumoniae PCR Not Detected (Not Detect.); Parainfluenza 1 PCR Not Detected (Not Detect.); Parainfluenza 2 PCR Not Detected (Not Detect.); Parainfluenza 3 PCR Not Detected (Not Detect.); Parainfluenza 4 PCR Not Detected (Not Detect.); RSV PCR Not Detected (Not Detect.); Rhino/Enterovirus PCR Not Detected (Not Detect.); SARS-CoV-2 PCR Not Detected (Not Detect.)
[2022-12-03] MEDS: diphenhydrAMINE HCL 25 MG CAPSULE 50 MG PO (21:00)
[2022-12-03] MEDS: Mirtazapine 7.5 MG TABLET PO (21:01)
[2022-12-03] MEDS: PHENobarbitaL 15 MG TABLET 45 MG PO (21:01)
[2022-12-04 04:00] VITALS: BP 102/50; PULSE 85; RESP 18; TEMP 36.7; O2SAT 97
[2022-12-04 06:00] LABS: MANUAL DIFF FLAG NO
[2022-12-04 06:07] LABS: Basophils Percent Auto 0.1 % (0-2); Hematocrit 35.2 % (37.0-47.0); Hemoglobin 11.8 g/dl (12.0-16.0); Imm Gran Abs Auto 0.08 X10*3/uL (0.00-0.03); Imm Gran Pct Auto 0.5 % (0.0-0.4); Lymphocytes Absolute Auto 1.2 X10*3/uL (1.2-4.9); Lymphocytes Percent Auto 7.5 % (20-40); Mean Corpuscular HGB Conc 33.5 g/dl (31.0-35.0); Mean Corpuscular Hemoglobin 30.4 pg (27.0-33.0); Mean Corpuscular Volume 90.7 fL (80.0-98.0); Mean Platelet Volume 11.2 fL (9.4-12.3); Monocytes Absolute Auto 0.6 X10*3/uL (0.1-1.2); Neutrophils Percent Auto 87.9 % (45-73); Platelet Count 225 X10*3/uL (160-400); Red Blood Count 3.88 X10*6/uL (4.20-5.50); Red Cell Distribution Width 11.8 % (11.0-16.0); White Blood Count 15.9 X10*3/uL (4.8-10.8)
[2022-12-04 06:27] LABS: Anion Gap 15 (12-20); Blood Urea Nitrogen 12 mg/dL (9-16); Calcium 9.1 mg/dL (8.4-10.2); Carbon Dioxide 23 mmol/L (22-29); Chloride 103 mmol/L (96-108); Estimated Glomerular Filt Rate > 60; Glucose Random 165 mg/dL (60-115); Magnesium 2.1 mg/dL (1.6-2.6); Potassium 4.5 mmol/L (3.3-5.1); Sodium 136 mmol/L (135-145)
[2022-12-04 08:00] VITALS: BP 111/61; PULSE 74; RESP 16; TEMP 37.1; O2SAT 98
[2022-12-04 08:36] VITALS: PULSE 82; RESP 18; O2SAT 94
[2022-12-04] MEDS: PHENobarbitaL 15 MG TABLET 45 MG PO (08:41)
[2022-12-04] MEDS: Enoxaparin Sodium 40 MG/0.4 ML SYRINGE SUBCUT (08:41)
[2022-12-04] MEDS: methylPREDNISolone Sod Succ 40 MG/ML VIAL IVPUSH (08:42)
[2022-12-04] MEDS: Thiamine HCL 100 MG in 0.9 % Sodium Chloride 100 ML 202 MG IV (08:42)
[2022-12-04] MEDS: Multivitamin TABLET 1 TAB PO (08:42)
[2022-12-04] MEDS: Folic Acid 1 MG TABLET PO (08:42)
[2022-12-04] MEDS: FLUoxetine HCl 20 MG CAPSULE PO (08:43)
[2022-12-04] MEDS: 0.9 % Sodium Chloride Flush 3 ML SYRINGE IVFLUSH (08:50)
[2022-12-04] MEDS: Propranolol HCL 10 MG TABLET 5 MG PO (08:56)
[2022-12-04] MEDS: hydrOXYzine HCL 25 MG TABLET PO ×2 (08:56→15:03)
[2022-12-04] MEDS: Acetaminophen 325 MG TABLET 650 MG PO (11:25)
--- NOTE | 2022-12-04 11:42 | MHC.CM.PN ---
m pt from s3/psych unit where she will retun when dcd
[2022-12-04 12:37] VITALS: PULSE 76; RESP 18; O2SAT 96
--- NOTE | 2022-12-04 13:04 | P.DS_ITS ---
DS: Providers Provider Date of Service: 12/04/22 Date of admission: 12/03/22 07:36 Date of discharge: 12/04/22 Primary care physician: Unknown Physician Consults: 12/03/22 07:47 Consult for Sitter Routine Reason for consultation: tx from M3 with SI 12/04/22 10:09 Consult to Care Team Routine Comment: Reason for consultation: medically clear; admitted from m3 Attending physician on discharge: Douglas Holden Discharging clinician: Shreya Negrete DS: Diagnosis Discharge Diagnosis (1) Asthma exacerbation: Status: Acute (2) Alcohol abuse: Status: Acute DS: Summary Hospital Course Hospital Course: From H&P on day of admission 32-year-old female with history of mild intermi ttent asthma, cocaine abuse, alcohol abuse, and depression/anxiety transferred from Psychiatry where she had been admitted for substance abuse, depression with SI, to hospitalist service for management of acute asthma exacerbation.? She states around 22:00 last night developed significant shortness of breath, wheezing, and productive cough.? She has also had sore throat which she attributes to her cough and headache.? Symptoms were not improving with albuterol treatments and had a single episode of hypoxia at 88% she was recommended for transfer to medical floors.? She states she has been hosp italized for asthma in the past, several years ago, but has never been intubated.? She has been regularly using crack cocaine, last use was 2 days ago.? She has also been consuming alcohol on a daily basis recently to help manage her symptoms stating she has been consuming about 5 or more drinks per day, last drink was 2 days ago.? She denies any withdrawal symptoms and has never had withdrawal seizure. However, she has been anxious with mild tachycardia to 107. She denies any fevers, chills, congestion, abdominal pain, nausea, vomiting, lightheadedness, palpitations, chest pain.? No known sick contacts. On arrival to med/surg, O2 saturation ranging 93-97%. She reports feeling depressed, but denies any active SI at this time. acute asthma exacerbation. Patient was admitted to the medical floor. She received IV solu-medrol and breathing treatments. Her wheezing resolved and breathing has returned to baseline. She had no hypoxia. CXR was negative for pneumonia. recomend 5 days of prednisone. can continue albuterol inhaler q6h for sob/wheezing and breathing treatments q4h if needed. recommend to obtain PCP and follow up as outpatient. Alcohol abuse Patient consuming 5+ alcoholic beverages daily for at least several weeks. Was treated with phenobarbitol. doesn't appear to be in alcohol withdrawal at this time. can continue po thiamine/folic acid and will finish po phenobarbitol taper. Time Spent with Patient Time attestation: Total time managing care of this patient today ____ minutes. Discharge coordination time: Greater than 30 minutes Quality: Safe Use of Opioids Does Pt have an Active Cancer Diagnosis on the Problem List?: No Quality: Stroke Does the patient have a stroke diagnosis?: No Physical Exam Vital Signs: Vital Signs: Last Vital Signs Temp 98.7 F 12/04/22 08:00 Pulse 76 12/04/22 12:37 Resp 18 12/04/22 12:37 BP 111/61 12/04/22 08:00 Pulse Ox 98 12/04/22 08:00 O2 Del Method Room Air 12/04/22 08:00 Const: General: cooperative, healthy appearing, comfortable, alert and awake Nutritional Appearance: average body habitus Orientation/consciousness: patient oriented x3 Resp: Effort & Inspection: normal respiratory effort and able to speak in complete sentences Auscultation: clear to auscultation bilaterally Cardio: Rate: regular rate Heart sounds: S1 normal heart sound present and S2 normal heart sound present GI: Inspection: No distended Palpation (GI): Soft to palpation and nontender Neuro: General: patient oriented x3 and CN's II-XI intact bilaterally Extrem: General: Yes no pedal edema DS: Data Data Completed and Pending Labs on day of discharge: Laboratory Results - last 24 hr 12/03/22 12/04/22 12/04/22 10:57 05:01 05:01 WBC 15.9 H RBC 3.88 L Hgb 11.8 L Hct 35.2 L MCV 90.7 MCH 30.4 MCHC 33.5 RDW 11.8 Plt Count 225 MPV 11.2 Immature Gran % (Auto) 0.5 H Neut % (Auto) 87.9 H Lymph % (Auto) 7.5 L [place] % (Auto) 4.0 Eos % (Auto) 0.0 Baso % (Auto) 0.1 Lymph # (Auto) 1.2 [place] # (Auto) 0.6 Eos # (Auto) 0.0 Baso # (Auto) 0.0 Abs Immat Gran (auto) 0.08 H Absolute Neuts (auto) 14.0 H Absolute Nucleated RBC 0.000 Nucleated RBC % (auto) 0.0 Sodium Potassium Chloride Carbon Dioxide Anion Gap BUN Creatinine Estim Creat Clear Calc Estimated GFR Random Glucose Calcium Magnesium 2.1 Respiratory Panel Donis See Note Adenovirus (Rapid PCR) Not Detected B.pert (TEM-PCR) Not Detected B.parapertussis DNA PCR Not Detected C. pneumoniae DNA (PCR) Not Detected Coronavirus OC43 (PCR) Not Detected Coronavirus HKU1 (PCR) Not Detected Coronavirus 229E (PCR) Not Detected Coronavirus NL63 (PCR) Not Detected Human Metapneumovir PCR Not Detected Influenza A (RT-PCR) Not Detected Influenza B (RT-PCR) Not Detected M. pneumoniae (PCR) Not Detected Parainfluenza 1 (PCR) Not Detected Parainfluenza 2 (PCR) Not Detected Parainfluenza 3 (PCR) Not Detected Parainfluenza 4 (PCR) Not Detected RSV (PCR) Not Detected Entero/Rhino (PCR) Not Detected SARS-CoV-2 RNA (RT-PCR) Not Detected 12/04/22 05:01 WBC RBC Hgb Hct MCV MCH MCHC RDW Plt Count MPV Immature Gran % (Auto) Neut % (Auto) Lymph % (Auto) [place] % (Auto) Eos % (Auto) Baso % (Auto) Lymph # (Auto) [place] # (Auto) Eos # (Auto) Baso # (Auto) Abs Immat Gran (auto) Absolute Neuts (auto) Absolute Nucleated RBC Nucleated RBC % (auto) Sodium 136 Potassium 4.5 Chloride 103 Carbon Dioxide 23 Anion Gap 15 BUN 12 Creatinine 0.70 Estim Creat Clear Calc TNP Estimated GFR > 60 Random Glucose 165 H Calcium 9.1 Magnesium Respiratory Panel Donis Adenovirus (Rapid PCR) B.pert (TEM-PCR) B.parapertussis DNA PCR C. pneumoniae DNA (PCR) Coronavirus OC43 (PCR) Coronavirus HKU1 (PCR) Coronavirus 229E (PCR) Coronavirus NL63 (PCR) Human Metapneumovir PCR Influenza A (RT-PCR) Influenza B (RT-PCR) M. pneumoniae (PCR) Parainfluenza 1 (PCR) Parainfluenza 2 (PCR) Parainfluenza 3 (PCR) Parainfluenza 4 (PCR) RSV (PCR) Entero/Rhino (PCR) SARS-CoV-2 RNA (RT-PCR) Discharge Plan Discharge Patient Disposition: Xfer Psychiatric Hosp Discharge Diagnosis: acute asthma exacerbation Referrals: Physician,Unknown J [Primary Care Provider] - 1 Week Discharge Medications: New prednisone 20 mg tablet 40 mg PO DAILY 5 Days Qty: 10 0RF phenobarbital 15 mg Tablet 45 mg PO BID Qty: 1 0RF phenobarbital 30 mg Tablet 30 mg PO Q24H Qty: 1 0RF phenobarbital 30 mg Tablet 30 mg PO BID Qty: 1 0RF Continued propranolol 10 mg Tablet 5 mg PO BID PRN (Reason: anxiety) Qty: 60 0RF Protocol: Hold for SBP/HR < HOLD for SBP < : 90 HOLD for HR < : 60 diphenhydramine HCl 25 mg Capsule 50 mg PO BEDTIME PRN (Reason: Sleep) Qty: 30 0RF folic acid 1 mg Tablet 1 mg PO DAILY Qty: 30 0RF fluoxetine 20 mg Capsule 20 mg PO DAILY Qty: 30 0RF loratadine 10 mg Tablet 10 mg PO DAILY PRN (Reason: allergy symptoms) Qty: 30 0RF mirtazapine 7.5 mg Tablet 7.5 mg PO BEDTIME Qty: 30 0RF multivitamin [Daily-Jam] Tablet 1 tab PO DAILY Qty: 30 0RF albuterol sulfate 90 mcg/actuation HFA aerosol inhaler 2 puff INHALATION Q6H Qty: 1 0RF acetaminophen 325 mg Tablet 650 mg PO Q6H PRN (Reason: Pain) trazodone 50 mg Tablet 50 mg PO BEDTIME PRN (Reason: Insomnia) Rx Instructions: MAY REPEAT 1 TIME thiamine HCl (vitamin B1) 100 mg Tablet 100 mg PO DAILY hydroxyzine HCl 50 mg tablet 25 mg PO Q6H PRN (Reason: anxiety) magnesium hydroxide [Milk of Magnesia] 400 mg/5 mL Suspension 30 ml PO DAILY PRN (Reason: Acid Reflux) nicotine (polacrilex) 4 mg Gum 4 mg BUCCAL Q2H PRN (Reason: Nicotine Cravings) loratadine 10 mg tablet 10 mg PO DAILY PRN (Reason: allergies) Changed albuterol sulfate 2.5 mg /3 mL (0.083 %) Solution For Nebulization 2.5 mg INHALATION Q4H PRN (Reason: Wheezing) Qty: 75 0RF Discontinued hydroxyzine HCl 50 mg Tablet 50 mg PO Q6H PRN (Reason: Anxiety) Qty: 30 0RF Discharge Orders: Discharge Order (Routine); Ordered 12/04/22 Ordered By: Shreya Negrete Activity on Discharge: As tolerated Stand Alone Forms: Patient Portal Discharge page Care Plan Goals: see below Health Concerns: acute asthma exacerbation alcohol withdrawal Plan of Treatment: take prednisone 40 mg once daily for 5 days albuterol inhaler q6h prn sob/wheezing albuterol nebulizer q4h prn sob/wheezing complete po phenobarbitol taper
--- NOTE | 2022-12-04 14:35 | MHC.CM.ED ---
pt dcd back tos3/psych
[2022-12-04 15:32] VITALS: BP 126/65; PULSE 86; RESP 18; TEMP 37.1; O2SAT 97
== END 2022-12-04 18:55 ==
PROVIDERS: Admitting Provider Physician Assistant; Visit Provider Physician Assistant Medical
DX: J45.901 Unspecified asthma with (acute) exacerbation (principal); R05.9 Cough, unspecified; F10.10 Alcohol abuse, uncomplicated; J02.9 Acute pharyngitis, unspecified; R51.9 Headache, unspecified; Z20.822 Contact with and (suspected) exposure to COVID-19
CPT/HCPCS: 36415; 71045; 80048; 83735; 85025; 87633; 94640; 96365; 96366; 96367; 96372; 96375; 96376; 99221; J1650; J2560; J2920; J3411; J3475; S9485

== ENCOUNTER 2022-12-04 19:03 | Inpatient (IN) | payer OTHER, SELFPAY ==
[2022-12-04] MEDS: Simethicone 80 MG TAB.CHEW PO (21:59)
[2022-12-04 22:40] VITALS: BP 143/88; PULSE 68; RESP 18; TEMP 36.7; O2SAT 100
[2022-12-04] MEDS: PHENobarbitaL 15 MG TABLET 45 MG PO (22:50)
[2022-12-04] MEDS: Mirtazapine 7.5 MG TABLET PO (22:50)
[2022-12-05 09:30] VITALS: BP 126/68; PULSE 84; RESP 16; TEMP 36.7; O2SAT 98
[2022-12-05] MEDS: PHENobarbitaL 15 MG TABLET 45 MG PO (09:32)
[2022-12-05] MEDS: FLUoxetine HCl 20 MG CAPSULE PO (09:33)
[2022-12-05] MEDS: Folic Acid 1 MG TABLET PO (09:34)
[2022-12-05] MEDS: Multivitamin TABLET 1 TAB PO (09:34)
[2022-12-05] MEDS: Thiamine HCL 100 MG TABLET PO (09:34)
[2022-12-05] MEDS: Propranolol HCL 10 MG TABLET 5 MG PO (09:39)
--- NOTE | 2022-12-05 09:45 | P.HPPS_ITS ---
HPI Date of Service: 12/05/22 Chief Complaint: Depression Sources of Information: patient interviewed, chart reviewed and crisis/core team assessment reviewed HPI Subjective Notes: Aponte Warning (given and shows understanding) and Conditional Voluntary Narrative: Ms. Antoine is a 32 year-old woman with hx of MDD, cocaine use. She was initially admitted to M3 for treatment of depression and suicidal ideation. However, pt was transferred to medical floor for evaluation and treatment of asthma exacerbation. Pt is being transferred back to continue psych tx. On the unit, pt reports feeling better. She reports she initially came to the hospital because she had fallen into bad habits again. Pt reports having stable job, although has been out on FMLA and living with partner. Pt denies SI/HI. She declines referrals for substance use treatment. She reports prozac so far helpful. She reports sleeping and eating well. Past Psychiatric History: HPI from 12/02: Overall presented to the ED with depression and suicidal thoughts. Substance use. Recent increase in self-harm by biting self hitting self. Tox positive for cocaine, fentanyl. Also daily drinking. Today patient reports having lifelong episodes poor frustration tolerance, getting angry and losing temper and lashing out with intermittent episodes of hurting herself by biting. Reports this happens if there was something upsetting such as financial stress. Reports substances also make things worse. Reports sleep has recently been very difficult. Anxiety has been high. Intermittent thoughts of suicide. Reports she had not self harmed in quite a long time until 1 week ago. No psychosis. No manic symptoms. Endorses history of low mood, anxiety, motivation and sleep disturbance even when sober at times. Snorts cocaine a few times per week. Daily drinking. No history of detox, DTs or seizures. Informed urine was positive for fentanyl. Very surprised by same and cocaine may have been laced with fentanyl. Was sober for 2 years up until 1 year ago. 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 We discussed potential treatment options including therapy, perhaps rehab and medications. Very eager to return to work as she has missed lots of time. Agreed to start Prozac and utilize low-dose Seroquel for sleep and anxiety. Also wants to speak with treatment team tomorrow about a letter for her job so they know she is in the hospital. Medical Evaluation Reviewed: Yes [facility], [facility] Medical History (Updated 12/07/22 @ 07:50 by Amber Alberto) Alcohol abuse Asthma Depression with suicidal ideation Polysubstance abuse Family History: none Social History: Living with girlfriend of 1 year. Reports this as a positive and supportive relationship. 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 Calling out a lot over the last 1 month. Has been in the [place] for around 4 years and was in [place] prior to that. 0 children. No legal issues. Substance History: cocaine on and off for some years Trauma History: reports history but no details provided Diagnostics Vital Signs (24Hr): Vital Signs - 24 hr 12/04/22 22:40 Temperature 98.1 F Pulse Rate 68 Respiratory Rate 18 Blood Pressure 143/88 H Pulse Oximetry 100 Oxygen Delivery Method Room Air Meds/Allergies Meds Home Medications Medication Instructions Recorded Confirmed Type acetaminophen 325 mg tablet 650 mg PO Q6H PRN Pain 12/03/22 12/03/22 History hydroxyzine HCl 50 mg tablet 25 mg PO Q6H PRN anxiety 12/03/22 12/03/22 History loratadine 10 mg tablet 10 mg PO DAILY PRN allergies 12/03/22 12/03/22 History magnesium hydroxide 400 mg/5 mL 30 ml PO DAILY PRN Acid Reflux 12/03/22 12/03/22 History oral suspension (Milk of Magnesia) nicotine (polacrilex) 4 mg gum 4 mg buccal Q2H PRN Nicotine 12/03/22 12/03/22 History Cravings thiamine HCl (vitamin B1) 100 mg 100 mg PO DAILY 12/03/22 12/03/22 History tablet trazodone 50 mg tablet 50 mg PO BEDTIME PRN Insomnia 12/03/22 12/03/22 History Allergies Allergies Allergy/AdvReac Type Severity Reaction Status Date / Time shellfish derived AdvReac Swelling Verified 12/01/22 23:54 Mental Status Exam Mental Status Exam Narrative: Appearance: wearing hospital gown, fair hygiene, in NAD Behavior: cooperative Speech: clear, normal rate/rhythm/volume, spontaneous Psychomotor: no agitation or retardation noted TP: linear TC: no signs of psychosis, feeling better SI: denies HI: denies VH/AH: none Delusions: none Insight/judgment: fair x 2. Memory/cog: alert, oriented x 3. grossly intact to conversational testing. Assessment & Plan Assessment & Plan (1) MDD (major depressive disorder), recurrent episode, moderate: Status: Acute Code(s): F33.1 - Major depressive disorder, recurrent, moderate (2) Cocaine use disorder, moderate, dependence: Status: Acute Code(s): F14.20 - Cocaine dependence, uncomplicated Plan Ms. Antoine is a 32 year-old woman with hx of MDD, cocaine use disorder who self presented initially for increase depression and SI in context of hx of trauma and recent relapsed on cocaine. Pt transferred to medical floor due to exacerbation of asthma. Pt transferred back to psych to continue tx for depression. Pt was started on prozac and propanolol. We discussed d/c propanolol as it can increase bronco spasms in setting of asthma. Pt currently denies SI/HI. She hopes to be discharged soon. PLAN Patient educated on: diagnosis, medication risk/benefits and substance abuse Reason for continued inpatient stay Substantial Risk for: harm to self Statement Statement: I have reviewed the history and physical and performed a pertinent examination on my patient. No changes have occurred unless specified. If the History and Physical was not performed prior to admission, the Hospitalist's service will be consulted for completing the admission physical. Time Spent With Patient Time: Total time managing care of this patient today ____ minutes.
[2022-12-05] MEDS: hydrOXYzine HCL 25 MG TABLET PO ×2 (17:05→23:17)
[2022-12-05 23:00] VITALS: BP 126/89; PULSE 86; RESP 16; TEMP 36.3; O2SAT 98
[2022-12-05] MEDS: Mirtazapine 7.5 MG TABLET PO (23:17)
[2022-12-05] MEDS: PHENobarbitaL 30 MG TABLET PO (23:17)
[2022-12-05] MEDS: Albuterol Sulfate 90 MCG 8 GM INHALER 2 PUFF INHALE (23:19)
--- NOTE | 2022-12-06 08:24 | PC.ADMIT ---
Late entry admission note for 12/04/22 Pt is a 32 year old female admitted to M3 from the medical floor at [facility] after referral from the CARE team. Arrived on unit at 1855, legal status: CV. Pt had been discharged from on 11/26, and re-presented to the ED and subsequently admitted to M3 on 12/02 before being transferred to the medical floor on 12/03 for an acute asthma exacerbation. After being medically cleared pt was reassessed by CARE team and found to be in continued need of IPLOC. Pt reported still having passive SI and feeling depressed and worthless. She reports discrepancies and other issues with the discharge planning from , and therefore feels that she ended up leaving too soon. Pt reports not being compliant with her medications and using substances, which she acknowledges are negatively impacting her job and relationship. At the time of admission assessment pt was alert and oriented x4, pleasant and cooperative, somewhat depressed affect, however is able to use and respond to humor during conversation. She denies SI/HI or self-harming thoughts, denies hallucinations. Thought process is linear and logical. Denies sleep or appetite disturbances. Pt denies any signs/symptoms of withdrawal from substances or alcohol. She denies any acute medical issues at this time, reporting feeling much better since medical admission. Nurse to nurse completed prior to admission. Provider notified and orders obtained. Pt placed on 15 minute safety checks, will seek out staff if necessary.?
[2022-12-06] MEDS: PHENobarbitaL 30 MG TABLET PO ×2 (08:46→20:55)
[2022-12-06] MEDS: Thiamine HCL 100 MG TABLET PO (08:46)
[2022-12-06] MEDS: Folic Acid 1 MG TABLET PO (08:46)
[2022-12-06] MEDS: Multivitamin TABLET 1 TAB PO (08:46)
[2022-12-06] MEDS: FLUoxetine HCl 20 MG CAPSULE PO (08:46)
[2022-12-06 08:48] VITALS: BP 116/69; PULSE 86; RESP 16; TEMP 36.6; O2SAT 97
[2022-12-06] MEDS: hydrOXYzine HCL 25 MG TABLET PO ×2 (10:16→20:55)
--- NOTE | 2022-12-06 20:11 | HO.PSYCHPN ---
Subjective Subjective Date of Service: 12/06/22 Reason For Visit: Depression Subjective Notes: Conditional Voluntary Interim History: Pt reports feeling much better. She has been more visible on the unit and social with peers. She has attended groups. Her hygiene is better and she is wearing casual clothing. She denies SI/HI. She reports sleeping well. She states she hopes to be discharged soon. Mental Status Exam Mental Status Exam Narrative: Appearance: wearing hospital gown, fair hygiene, in NAD Behavior: cooperative Speech: clear, normal rate/rhythm/volume, spontaneous Psychomotor: no agitation or retardation noted TP: linear TC: no signs of psychosis, feeling better SI: denies HI: denies VH/AH: none Delusions: none Insight/judgment: fair x 2. Memory/cog: alert, oriented x 3. grossly intact to conversational testing. Diagnostics Vital Signs (24Hr): Vital Signs - 24 hr 12/05/22 23:00 12/06/22 08:48 Temperature 97.4 F 97.9 F Pulse Rate 86 86 Respiratory Rate 16 16 Blood Pressure 126/89 116/69 Pulse Oximetry 98 97 Oxygen Delivery Method Room Air Room Air Medications Medications Current Medications Acetaminophen (Acetaminophen 325 Mg Tablet) 650 mg PO Q6H PRN PRN Reason: Pain, Mild (Pain Scale 1-3) Al Hydroxide/Mg Hydroxide (Magnesium Hydrox/Alum Hydrox 30 Ml Oral.Susp) 30 ml PO Q6H PRN PRN Reason: Heartburn/Nausea Albuterol Sulfate (Albuterol Sulfate 90 Mcg 8 Gm Inhaler) 2 puff INHALE RQ4H PRN PRN Reason: shortness of breath/wheezing Last Admin: 12/05/22 23:19 Dose: 2 puff Albuterol Sulfate 2.5 mg/ (Ipratropium Aurora 0.5 mg) 0 mg INHALE RQ4H WHILE AWAKE [facility] Last Admin: 12/06/22 16:33 Dose: Not Given Diphenhydramine HCl (Diphenhydramine Hcl 25 Mg Capsule) 50 mg PO BEDTIME PRN PRN Reason: Sleep Docusate Sodium (Docusate Sodium 100 Mg Capsule) 100 mg PO DAILY PRN PRN Reason: Constipation Fluoxetine HCl (Fluoxetine Hcl 20 Mg Capsule) 20 mg PO DAILY [facility] Last Admin: 12/06/22 08:46 Dose: 20 mg Folic Acid (Folic Acid 1 Mg Tablet) 1 mg PO DAILY [facility] Last Admin: 12/06/22 08:46 Dose: 1 mg Hydroxyzine HCl (Hydroxyzine Hcl 25 Mg Tablet) 25 mg PO Q6H PRN PRN Reason: Anxiety Last Admin: 12/06/22 10:16 Dose: 25 mg Loratadine (Loratadine 10 Mg Tablet) 10 mg PO DAILY PRN PRN Reason: allergy symptoms Magnesium Hydroxide (Milk Of Magnesia 30 Ml Oral.Susp) 30 ml PO DAILY PRN PRN Reason: Constipation Magnesium Hydroxide (Milk Of Magnesia 30 Ml Oral.Susp) 30 ml PO DAILY PRN PRN Reason: Acid Reflux Mirtazapine (Mirtazapine 7.5 Mg Tablet) 7.5 mg PO BEDTIME [facility] Last Admin: 12/05/22 23:17 Dose: 7.5 mg Multivitamins/Vitamin C (Multivitamin Tablet) 1 tab PO DAILY [facility] Last Admin: 12/06/22 08:46 Dose: 1 tab Nicotine Polacrilex (Nicotine Polacrilex 2 Mg Gum) 4 mg BUCCAL Q2H PRN PRN Reason: Nicotine Cravings Phenobarbital (Phenobarbital 30 Mg Tablet) 30 mg PO BID [facility]; Protocol Stop: 12/07/22 09:01 Last Admin: 12/06/22 08:46 Dose: 30 mg Phenobarbital (Phenobarbital 30 Mg Tablet) 30 mg PO Q24H [facility]; Protocol Stop: 12/08/22 21:01 Simethicone (Simethicone 80 Mg Tab.Chew) 80 mg PO TIDWM PRN PRN Reason: Gas Last Admin: 12/04/22 21:59 Dose: 80 mg Thiamine HCl (Thiamine Hcl 100 Mg Tablet) 100 mg PO DAILY [facility] Last Admin: 12/06/22 08:46 Dose: 100 mg Trazodone HCl (Trazodone Hcl 50 Mg Tablet) 50 mg PO BEDTIME PRN PRN Reason: Insomnia Trazodone HCl (Trazodone Hcl 50 Mg Tablet) 50 mg PO BEDTIME PRN PRN Reason: Insomnia Allergies Allergies Allergy/AdvReac Type Severity Reaction Status Date / Time shellfish derived AdvReac Swelling Verified 12/01/22 23:54 Assessment & Plan Assessment & Plan (1) Cocaine use disorder, moderate, dependence: Status: Acute Code(s): F14.20 - Cocaine dependence, uncomplicated (2) MDD (major depressive disorder), recurrent episode, moderate: Status: Acute Code(s): F33.1 - Major depressive disorder, recurrent, moderate Plan continue tx. prozac. Propanolol discontinued as it can exacerbate asthma. Reason for contiued inpatient stay Substantial Risk for: stable for discharge Time Spent With Patient Time: Total time managing care of this patient today ____ minutes.
[2022-12-06 20:55] VITALS: BP 138/71; PULSE 95; RESP 16; TEMP 36.7; O2SAT 98
[2022-12-06] MEDS: Mirtazapine 7.5 MG TABLET PO (20:55)
[2022-12-06] MEDS: Acetaminophen 325 MG TABLET 650 MG PO (20:55)
[2022-12-06] MEDS: Albuterol Sulfate 90 MCG 8 GM INHALER 2 PUFF INHALE (20:58)
[2022-12-07 08:00] VITALS: BP 113/64; PULSE 87; TEMP 36.5; O2SAT 97
[2022-12-07] MEDS: PHENobarbitaL 30 MG TABLET PO ×2 (08:03→21:06)
[2022-12-07] MEDS: Folic Acid 1 MG TABLET PO (08:04)
[2022-12-07] MEDS: FLUoxetine HCl 20 MG CAPSULE PO (08:04)
[2022-12-07] MEDS: Thiamine HCL 100 MG TABLET PO (08:04)
[2022-12-07] MEDS: Multivitamin TABLET 1 TAB PO (08:04)
--- NOTE | 2022-12-07 12:44 | P.DS_ITS ---
DS: Providers Provider Date of Service: 12/07/22 Date of admission: 12/04/22 19:03 Primary care physician: Unknown Physician DS: Diagnosis Discharge Diagnosis (1) Cocaine use disorder, moderate, dependence: Status: Acute (2) MDD (major depressive disorder), recurrent episode, moderate: Status: Acute DS: Medications Discharge Medications Home Medications: Home Medications Medication Instructions Recorded Confirmed hydroxyzine HCl 50 mg tablet 25 mg PO Q6H PRN anxiety 12/03/22 12/03/22 thiamine HCl (vitamin B1) 100 mg 100 mg PO DAILY 12/03/22 12/03/22 tablet Previous Rx's Medication Instructions Recorded fluoxetine 20 mg capsule 20 mg PO DAILY #30 caps 11/26/22 folic acid 1 mg tablet 1 mg PO DAILY #30 tabs 11/26/22 mirtazapine 7.5 mg tablet 7.5 mg PO BEDTIME #30 tabs 11/26/22 multivitamin (Daily-Jam tablet) 1 tab PO DAILY #30 tabs 11/26/22 albuterol sulfate 90 mcg/actuation 2 puff inhalation Q6H 30 days #1 12/07/22 aerosol inhaler inhaler loratadine 10 mg tablet 10 mg PO DAILY PRN allergies 30 12/07/22 days #30 tabs Mental Status Exam Mental Status Exam Narrative: Appearance: well dressed and groomed, street clothes Behavior: cooperative Speech: clear, normal rate/rhythm/volume, spontaneous Psychomotor: no agitation or retardation noted TP: linear TC: no signs of psychosis, feeling better mood: super great. SI: denies HI: denies VH/AH: none Delusions: none Insight/judgment: fair x 2. Memory/cog: alert, oriented x 3. grossly intact to conversational testing. DS: Summary Hospital Course Hospital Course: per 12/05 admission note: Ms. Antoine is a 32 year-old woman with hx of MDD, cocaine use. She was initially admitted to [facility] for treatment of depression and suicidal ideation. However, pt was transferred to medical floor for evaluation and treatment of asthma exacerbation. Pt is being transferred back to [facility]. On the unit, pt reports feeling better. She reports she initially came to the hospital because she had fallen into bad habits again. Pt reports having stable job, although has been out on FMLA and living with partner. Pt denies SI/HI. She declines referrals for substance use treatment. She reports prozac so far helpful. She reports sleeping and eating well. Past Psychiatric History: HPI from 12/02: Overall presented to the ED with depression and suicidal thoughts.? Substance use.? Recent increase in self-harm by biting self hitting self.? Tox positive for cocaine, fentanyl.? Also daily drinking. ? Today patient reports having lifelong episodes poor frustration tolerance, getting angry and losing temper and lashing out with intermittent episodes of hurting herself by biting.? Reports this happens if there was something upsetting such as financial stress.? Reports substances also make things worse.? Reports sleep has recently been very difficult.? Anxiety has been high.? Intermittent thoughts of suicide.? Reports she had not self harmed in quite a long time until 1 week ago.? No psychosis.? No manic symptoms.? Endorses history of low mood, anxiety, motivation and sleep disturbance even when sober at times. ? Snorts cocaine a few times per week.? Daily drinking.? No history of detox, DTs or seizures.? Informed urine was positive for fentanyl.? Very surprised by same and cocaine may have been laced with fentanyl.? Was sober for 2 years up until 1 year ago.? 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 ? We discussed potential treatment options including therapy, perhaps rehab and medications.? Very eager to return to work as she has missed lots of time.? Agreed to start Prozac and utilize low-dose Seroquel for sleep and anxiety.? Also wants to speak with treatment team tomorrow about a letter for her job so they know she is in the hospital. Medical Evaluation Reviewed: Yes [facility] Medical History?(Updated 12/07/22 @ 07:50 by Amber Alberto) Alcohol abuse Asthma Depression with suicidal ideation Polysubstance abuse Family History: none Social History: Living with girlfriend of 1 year.? Reports this as a positive and supportive relationship.? 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 Calling out a lot over the last 1 month.? Has been in the [place] for around 4 years and was in [place] prior to that.? 0 children.? No legal issues. Substance History: cocaine on and off for some years Trauma History: reports history but no details provided 12/06: Pt reports feeling much better. She has been more visible on the unit and social with peers. She has attended groups. Her hygiene is better and she is wearing casual clothing. She denies SI/HI. She reports sleeping well. She states she hopes to be discharged soon. 3: calm, cooperative, pleasant, engaged. requesting discharge. denies safety concerns. meds reviewed, reconciled, Rx'ed. per staff, pleasant and cooperative. brighter. attending groups. denies SI/HI/AVH. Precis: Ms. Antoine is a 32 year-old woman with hx of MDD, cocaine use disorder who self presented initially for increase depression and SI in context of hx of trauma and recent relapsed on cocaine. Pt transferred to medical floor due to exacerbation of asthma. Pt transferred back to psych to continue tx for depression. 12/05: Pt was started on prozac and propanolol. We discussed d/c propanolol as it can increase bronco spasms in setting of asthma. Pt currently denies SI/HI. She hopes to be discharged soon. 12/06: continue tx. prozac. Propanolol discontinued as it can exacerbate asthma. 3: stable, well. requesting discharge tomorrow, which is agreed upon. meds reviewed, reconciled, prescribed. DC planning with BONNIE romano. Time Spent with Patient Time attestation: Total time managing care of this patient today ____ minutes. Time spent: Greater than 30 minutes Discharge Plan Discharge Anticipated Discharge Date/Time: 12/08/22 11:00 Patient Disposition: Home, Self-Care Discharge Diagnosis: Major Depressive Disorder, Recurrent, Moderate Cocaine Use Disorder Referrals: Physician,Unknown J [Primary Care Provider] - 1 Week Discharge Medications: Continued folic acid 1 mg Tablet 1 mg PO DAILY Qty: 30 0RF fluoxetine 20 mg Capsule 20 mg PO DAILY Qty: 30 0RF mirtazapine 7.5 mg Tablet 7.5 mg PO BEDTIME Qty: 30 0RF multivitamin [Daily-Jam] Tablet 1 tab PO DAILY Qty: 30 0RF thiamine HCl (vitamin B1) 100 mg Tablet 100 mg PO DAILY hydroxyzine HCl 50 mg tablet 25 mg PO Q6H PRN (Reason: anxiety) albuterol sulfate 90 mcg/actuation HFA aerosol inhaler 2 puff INHALATION Q6H 30 Days Qty: 1 0RF loratadine 10 mg tablet 10 mg PO DAILY PRN (Reason: allergies) 30 Days Qty: 30 0RF Discontinued propranolol 10 mg Tablet 5 mg PO BID PRN (Reason: anxiety) Qty: 60 0RF Protocol: Hold for SBP/HR < HOLD for SBP < : 90 HOLD for HR < : 60 diphenhydramine HCl 25 mg Capsule 50 mg PO BEDTIME PRN (Reason: Sleep) Qty: 30 0RF loratadine 10 mg Tablet 10 mg PO DAILY PRN (Reason: allergy symptoms) Qty: 30 0RF acetaminophen 325 mg Tablet 650 mg PO Q6H PRN (Reason: Pain) trazodone 50 mg Tablet 50 mg PO BEDTIME PRN (Reason: Insomnia) Rx Instructions: MAY REPEAT 1 TIME magnesium hydroxide [Milk of Magnesia] 400 mg/5 mL Suspension 30 ml PO DAILY PRN (Reason: Acid Reflux) nicotine (polacrilex) 4 mg Gum 4 mg BUCCAL Q2H PRN (Reason: Nicotine Cravings) prednisone 20 mg tablet 40 mg PO DAILY 5 Days Qty: 10 0RF albuterol sulfate 2.5 mg /3 mL (0.083 %) Solution For Nebulization 2.5 mg INHALATION Q4H PRN (Reason: Wheezing) Qty: 75 0RF phenobarbital 15 mg Tablet 45 mg PO BID Qty: 1 0RF phenobarbital 30 mg Tablet 30 mg PO Q24H Qty: 1 0RF phenobarbital 30 mg Tablet 30 mg PO BID Qty: 1 0RF Discharge Orders: Discharge Order (Routine); Ordered 12/08/22 Ordered By: Parish Navarro Diet: Advance to usual diet Activity on Discharge: As tolerated Stand Alone Forms: Patient Portal Discharge page Care Plan Goals: remain safe, stable, and sober in the outpatient treatment setting Health Concerns: none Plan of Treatment: take medications as prescribed, attend appointments as scheduled Assessment: not at imminent risk of harm to self or others
[2022-12-07] MEDS: hydrOXYzine HCL 25 MG TABLET PO ×2 (13:58→21:06)
[2022-12-07] MEDS: Acetaminophen 325 MG TABLET 650 MG PO ×2 (14:49→21:06)
--- NOTE | 2022-12-07 16:25 | PC.NURSE ---
Pt reports that she is breathing without wheezing.
--- NOTE | 2022-12-07 20:53 | MHC.RECOVSUP ---
? Reason for consult: Airplane Flight Attendant o ?Current location: 322-2 o ?Identified substance use concern: KEITH? - Support ? ?Intervention: o Community resources provided o Harm reduction discussion ? Additional information:?transformation coach met with pt and reviewed harm reduction strategies along with options for treatment. Design Analyst will also submit referral for Airplane Flight Attendant services with [facility] in [place].
[2022-12-07] MEDS: Mirtazapine 7.5 MG TABLET PO (21:06)
[2022-12-07] MEDS: Albuterol Sulfate 90 MCG 8 GM INHALER 2 PUFF INHALE (21:07)
[2022-12-07 21:09] VITALS: BP 131/76; PULSE 83; RESP 16; TEMP 36.4; O2SAT 97
[2022-12-08] MEDS: Thiamine HCL 100 MG TABLET PO (08:45)
[2022-12-08] MEDS: Multivitamin TABLET 1 TAB PO (08:45)
[2022-12-08] MEDS: Folic Acid 1 MG TABLET PO (08:45)
[2022-12-08] MEDS: FLUoxetine HCl 20 MG CAPSULE PO (08:45)
[2022-12-08 08:55] VITALS: BP 125/77; PULSE 81; RESP 18; TEMP 36.6; O2SAT 100
[2022-12-08] MEDS: hydrOXYzine HCL 25 MG TABLET PO (09:09)
--- NOTE | 2022-12-08 11:10 | PC.NURSE ---
Patient easily engaged. Reports mood is stable, denies highs or lows, denies depression or sadness, feels level. Denies cravings or urges. Planning to meet sponsor today, attend meeting this afternoon. No reported perceptual disturbances, no overt psychosis or expressed delusions. Discharge paperwork reviewed with patient, reports understanding. Medications reviewed with patient. Reports she has medications at home. Reviewed RX sent to pharmacy, reports understanding. All belongings taken with patient. Informed of walk in clinic if needed, instruction reviewed regarding obtaining PCP through [facility] as she currently does not have provider. Returning to home with gf.
== END 2022-12-08 11:00 | disposition home or self-care (01) | DRG 751 ==
PROVIDERS: Admitting Provider Psychiatry & Neurology Psychiatry; Visit Provider Psychiatry & Neurology Psychiatry
DX: F33.1 Major depressive disorder, recurrent, moderate (principal); R45.851 Suicidal ideations; F14.20 Cocaine dependence, uncomplicated; Z79.899 Other long term (current) drug therapy

== ENCOUNTER 2023-02-15 13:47 | Emergency (ER) | payer OTHER, SELFPAY ==
[2023-02-15 13:52] VITALS: BP 146/97; BP 158/86; PULSE 98; RESP 18; TEMP 36.6; O2SAT 98; BMI 30.1
--- NOTE | 2023-02-15 13:58 | ECG_ITS ---
Test Reason : cocaine use Blood Pressure : / mmHG Vent. Rate : 074 BPM Atrial Rate : 074 BPM P-R Int : 162 ms QRS Dur : 082 ms QT Int : 388 ms P-R-T Axes : 027 025 -02 degrees QTc Int : 430 ms Normal sinus rhythm Normal ECG When compared with ECG of 02-DEC-2022 11:45, No significant change was found Referred By: Danyell Ocampo Electronically Signed By:KARIN ALEGRIA MD
--- NOTE | 2023-02-15 13:58 | ED_ITS ---
HPI - General Adult General Chief complaint: Psychiatric Symptoms Stated complaint: SI/ETOH Time Seen by Provider: 02/15/23 13:58 Source: patient and EMS Mode of arrival: EMS Limitations: no limitations History of Present Illness HPI narrative: Patient is a 32 year old assigned female at with a history of alcohol abuse, depression, and cocaine use presenting to the emergency department today with suicidal ideation. Patient states that she is feeling more suicidal lately. Patient denies any dizziness, lightheadedness, abdominal pain, nausea, vomiting, fever, chills, blurry vision, double vision, loss of vision, chest pain, difficulty breathing, shortness of breath, back pain, night sweats, pain with urination, increased urinary frequency, increased urinary urgency, blood in her urine or stool, syncope or a near syncopal episode, recent trauma or falls, bowel incontinence, bladder incontinence, bowel retention, bladder retention, or any other complaints at this time. Onset (ago): day(s) Severity: mild Relieving factors: none Exacerbating factors: none Associated symptoms: denies other symptoms Treatments prior to arrival: none Related Data Previous Rx's Medication Instructions Recorded albuterol sulfate 90 mcg/actuation 2 puff inhalation Q6H 30 days #1 12/07/22 aerosol inhaler inhaler loratadine 10 mg tablet 10 mg PO DAILY PRN allergies 30 12/07/22 days #30 tabs Allergies Allergy/AdvReac Type Severity Reaction Status Date / Time shellfish derived AdvReac Swelling Verified 02/15/23 14:45 Review of Systems Constitutional: Constitutional: Reports no additional constitutional complaints, Denies chills, Denies fever(s) and Denies night sweats Eyes: Eyes: Reports no additional eye complaints, Denies blurry vision, Denies change in vision, Denies diplopia, Denies eye discharge, Denies loss of vision and Denies eye pain ENT: Denies dizziness Cardiovascular: Cardiovascular: Reports no additional cardiovascular complaints, Denies chest pain, Denies lightheadedness, Denies Loss of Consciousness and Denies dyspnea Respiratory: Respiratory: Reports no additional respiratory complaints and Denies dyspnea Gastrointestinal: Gastrointestinal: Reports no additional gastrointestinal complaints, Denies abdominal pain, Denies melena, Denies hematochezia, Denies change in bowel habits and Denies change in stool character Genitourinary: Genitourinary: Denies hematuria, Denies urinary frequency, Denies dysuria, Denies urinary incontinence, Denies urinary hesitancy and Denies urinary urgency Musculoskeletal: Musculoskeletal: Reports no additional musculoskeletal complaints, Denies numbness and Denies tingling Neurologic: Denies dizziness, Denies loss of vision, Denies numbness and Denies tingling Psychiatric: Psychiatric: Reports no additional psychiatric complaints and Reports suicidal ideation Endocrine: Endocrine: Reports no additional endocrine complaints Hematologic/Lymphatic: Hematologic/Lymphatic: Reports no additional hematologic/lymphatic complaints Allergic/Immunologic: Allergic/Immunologic: Reports no additional allergic /immunologic complaints [facility] Past Medical History Attestation statement: The following information was validated with the patient. Source: old records reviewed and nursing notes reviewed Medical History Alcohol abuse Asthma Depression with suicidal ideation Polysubstance abuse Social History Social History Household Members: Significant Other Housing: Apartment Do you presently have visiting nurse or other home services: No Alcohol intake: current Alcohol intake frequency: 3 or more drinks per day Patient Tobacco Use Status: Never used Tobacco e-Cigarette/Vaping Use: Never Used Substance Use Type: Crack/Cocaine Advance Directives: No Advance Directives Information Provided: Yes Advance Directives on File: No service: No Sexual orientation: Lesbian/Ga/Homosexual Physical Exam ED Vital Signs: Vital Signs - 24 hr 02/15/23 13:52 02/15/23 20:38 Temperature 98 F 98.9 F Pulse Rate 98 110 H Respiratory Rate 18 18 Blood Pressure 146/97 H 130/67 Pulse Oximetry 98 95 Oxygen Delivery Method Room Air Room Air BMI result Body Mass Index 30.1 Const General: cooperative, no acute distress, alert and awake Nutritional Appearance: well nourished Orientation/consciousness: patient oriented x3 Limitations: no limitations HENMT Head: Yes normal to inspection and Yes atraumatic Ears: hearing grossly normal bilaterally and external ears normal General nose exam: Normal external nose present, no nasal discharge noted and no epistaxis Face and sinus: Yes normal facial exam, No abrasion and No laceration Mouth: Normal oral and palatal mucosa present, no drooling and no muffled voice Eyes General: appearance normal, both eyes and all related structures Periorbital: periorbital findings normal Eyelids: Yes eyelids normal Conjunctivae: conjunctivae normal Pupils: Equal, round and reactive pupils present EOM: EOMs intact bilaterally Neck Neck: Yes normal visual inspection, Yes full ROM and Yes no lymphadenopathy Chest Chest palpation & inspection: normal inspection of the chest Resp Effort & Inspection: normal respiratory effort and able to speak in complete sentences GI Inspection: Yes normal to inspection Neuro General: patient oriented x3 and moves all extremities Cranial nerves: Yes Equal, round and reactive pupils present Cognition (Neuro): normal cognition Motor exam (neuro): 5/5 motor strength present throughout Sensory Exam: Normal double simultaneous stimulation for sensation Coordination: [id number] test normal Extrem General: Yes normal to inspection, Yes full ROM and Yes capillary refill normal Psych Appearance: grossly normal Mental Status: mental status grossly normal Affect: normal affect Attitude: cooperative Thought process: Normal thought process present Thought content: Normal thought content present Insight: Good insight present (Psych) Medical Decision Making Medical Decision Making [facility] Narrative: Patient is a 32 year old assigned female at with a history of alcohol abuse, cocaine abuse, and depression presenting to the emergency department today with suicidal ideation. Patient's physical exam was unremarkable. Patient's blood work was unremarkable. Patient's urine showed no acute process. Patient's EKG was unremarkable. I explained my physical exam findings as well as all test results to the patient. I answered all questions asked by the patient. Patient is medically cleared and currently awaiting CARE team evaluation. Patient evaluated by care team. At this time patient is not suicidal not homicidal. Wants to go home. Care team feel comfortable patient following up on an outpatient basis. She admits to using recreational drugs and wants to stop. Currently in stable condition with discharge home Differential Diagnosis Differential Diagnoses: The differential diagnosis associated with the presentation includes suicidal ideation Admission/Observation Consideration of admission/observation: Escalation of care including admission/observation considered Patient may be admitted depending on CARE team evaluation and recommendation. Lab Data [facility] Lab Attestation statement: I reviewed the patient's lab results. My interpretation of these studies and their corresponding values is that they are grossly normal. 02/15/23 14:14 02/15/23 14:14 Labs: Lab Results 02/15/23 02/15/23 02/15/23 Range/Units 14:14 14:14 14:14 WBC 11.2 H (4.8-10.8) X10*3/uL RBC 4.40 (4.20-5.50) X10*6/uL Hgb 13.4 (12.0-16.0) g/dl Hct 39.7 (37.0-47.0) % MCV 90.2 (80.0-98.0) fL MCH 30.5 (27.0-33.0) pg MCHC 33.8 (31.0-35.0) g/dl RDW 12.3 (11.0-16.0) % Plt Count 257 (160-400) X10*3/uL MPV 10.2 (9.4-12.3) fL Immature Gran % (Auto) 0.3 (0.0-0.4) % Neut % (Auto) 60.7 (45-73) % Lymph % (Auto) 29.4 (20-40) % [place] % (Auto) 5.1 (2-11) % Eos % (Auto) 3.5 (0-4) % Baso % (Auto) 1.0 (0-2) % Lymph # (Auto) 3.3 (1.2-4.9) X10*3/uL [place] # (Auto) 0.6 (0.1-1.2) X10*3/uL Eos # (Auto) 0.4 (0.0-0.4) X10*3/uL Baso # (Auto) 0.1 (0.0-0.2) X10*3/uL Abs Immat Gran (auto) 0.03 (0.00-0.03) X10*3/uL Absolute Neuts (auto) 6.8 (2.0-8.3) x10*3/uL Absolute Nucleated RBC 0.000 (0.0-0.012) X10*3/uL Nucleated RBC % (auto) 0.0 (0.0-0.2) /100WBC Sodium 139 (135-145) mmol/L Potassium 3.9 (3.3-5.1) mmol/L Chloride 105 (96-108) mmol/L Carbon Dioxide 23 (22-29) mmol/L Anion Gap 15 (12-20) BUN 13 (9-16) mg/dL Creatinine 0.72 (0.5-1.4) mg/dL Estim Creat Clear Calc 110.2 Estimated GFR > 60 Random Glucose 77 (60-115) mg/dL Calcium 9.5 (8.4-10.2) mg/dL Total Bilirubin 0.5 (0.0-1.0) mg/dL AST 21 (5-31) U/L ALT 16 (0-31) U/L Alkaline Phosphatase 99 (39-117) U/L Total Protein 7.7 (6.5-8.0) g/dL Albumin 4.6 (3.5-5.0) g/dL Urine Color Urine Appearance Urine pH (5.0-9.0) Ur Specific [place] (1.005-1.025) Urine Protein (Neg-Trace) mg/dL Urine Glucose (UA) (Negative) mg/dL Urine Ketones (Negative) mg/dL Urine Blood (Negative) Urine Nitrite (Negative) Ur Leukocyte Esterase (Negative) Urine Test (NEGATIVE) Salicylates < 5.0 L (15-30) mg/dL Urine Opiates Screen (Not Detect) Urine Fentanyl Screen (Not Detect) Acetaminophen < 17 (<30) mcg/mL Ur Barbiturates Screen (Not Detect) Ur Phencyclidine Scrn (Not Detect) Ur Amphetamines Screen (Not Detect) U Benzodiazepines Scrn (Not Detect) Urine Cocaine Screen (Not Detect) U Marijuana (THC) Screen (Not Detect) Ethyl Alcohol 58 mg/dL COVID-19 (ION) Negative (Negative) COVID-19 Clin Com See Note 02/15/23 02/15/23 02/15/23 Range/Units 14:14 14:14 14:14 WBC (4.8-10.8) X10*3/uL RBC (4.20-5.50) X10*6/uL Hgb (12.0-16.0) g/dl Hct (37.0-47.0) % MCV (80.0-98.0) fL MCH (27.0-33.0) pg MCHC (31.0-35.0) g/dl RDW (11.0-16.0) % Plt Count (160-400) X10*3/uL MPV (9.4-12.3) fL Immature Gran % (Auto) (0.0-0.4) % Neut % (Auto) (45-73) % Lymph % (Auto) (20-40) % [place] % (Auto) (2-11) % Eos % (Auto) (0-4) % Baso % (Auto) (0-2) % Lymph # (Auto) (1.2-4.9) X10*3/uL [place] # (Auto) (0.1-1.2) X10*3/uL Eos # (Auto) (0.0-0.4) X10*3/uL Baso # (Auto) (0.0-0.2) X10*3/uL Abs Immat Gran (auto) (0.00-0.03) X10*3/uL Absolute Neuts (auto) (2.0-8.3) x10*3/uL Absolute Nucleated RBC (0.0-0.012) X10*3/uL Nucleated RBC % (auto) (0.0-0.2) /100WBC Sodium (135-145) mmol/L Potassium (3.3-5.1) mmol/L Chloride (96-108) mmol/L Carbon Dioxide (22-29) mmol/L Anion Gap (12-20) BUN (9-16) mg/dL Creatinine (0.5-1.4) mg/dL Estim Creat Clear Calc Estimated GFR Random Glucose (60-115) mg/dL Calcium (8.4-10.2) mg/dL Total Bilirubin (0.0-1.0) mg/dL AST (5-31) U/L ALT (0-31) U/L Alkaline Phosphatase (39-117) U/L Total Protein (6.5-8.0) g/dL Albumin (3.5-5.0) g/dL Urine Color Yellow Urine Appearance Clear Urine pH 7.0 (5.0-9.0) Ur Specific [place] 1.015 (1.005-1.025) Urine Protein Negative (Neg-Trace) mg/dL Urine Glucose (UA) Negative (Negative) mg/dL Urine Ketones Negative (Negative) mg/dL Urine Blood Negative (Negative) Urine Nitrite Negative (Negative) Ur Leukocyte Esterase Negative (Negative) Urine Test NEGATIVE (NEGATIVE) Salicylates (15-30) mg/dL Urine Opiates Screen Not Detected (Not Detect) Urine Fentanyl Screen Not Detected (Not Detect) Acetaminophen (<30) mcg/mL Ur Barbiturates Screen Not Detected (Not Detect) Ur Phencyclidine Scrn Not Detected (Not Detect) Ur Amphetamines Screen Not Detected (Not Detect) U Benzodiazepines Scrn Not Detected (Not Detect) Urine Cocaine Screen POSITIVE H (Not Detect) U Marijuana (THC) Screen POSITIVE H (Not Detect) Ethyl Alcohol mg/dL COVID-19 (ION) (Negative) COVID-19 Clin Com Independent Interpretation I performed an independent interpretation of an: EKG Interpretation: Vent. Rate: 074 BPM ? ? Atrial Rate: 074 BPM P-R Int: 162 ms? QRS Dur: 082 ms QT Int: 388 ms ? ? ? P-R-T Axes: 027 025 -02 degrees QTc Int: 430 ms ? Normal sinus rhythm Normal ECG When compared with ECG of 02-DEC-2022 11:45, No significant change was found DD/ [id number] Independent Historian Clinical information obtained from an independent historian. History obtained from or confirmed by: EMS (EMS provided additional history as well as confirming the patient's history) Critical Care Time Critical Care Time Critical Care Time: Yes Total Critical Care Time: 30 Attestation: I spent 30 minutes of Critical Care Time with this patient. This does not include time spent on separately reported billable procedures. Discharge Plan Discharge Clinical Impression: MDD (major depressive disorder), recurrent episode, moderate, Substance abuse, Suicidal ideation Patient Disposition: Home, Self-Care Instructions: Polysubstance Abuse (ED), Help Prevent Suicide (ED), Suicide Prevention (ED) Prescriptions: No Action albuterol sulfate 90 mcg/actuation HFA aerosol inhaler 2 puff INHALATION Q6H 30 Days Qty: 1 0RF loratadine 10 mg tablet 10 mg PO DAILY PRN (Reason: allergies) 30 Days Qty: 30 0RF Referrals: Physician,Unknown J [Primary Care Provider] - 2 days Interventions: [place]-Suicide Risk Severity Scale Last Done: 02/15/23 14:42
[2023-02-15 14:23] LABS: MANUAL DIFF FLAG NO
--- NOTE | 2023-02-15 14:23 | MHC.CARE ---
1350 Call from [facility], they were at patient's house to evaluate her after she called a friend and reported suicidal ideation. Patient did not answer the door and police had to break down the door, found patient in bed and intoxicated, sending to [facility] for medical clearance assessment.
[2023-02-15 14:29] LABS: Appearance Urine Clear; Color Urine Yellow; Glucose Urine UA Negative (Negative); Leukocyte Esterase Urine Negative (Negative); Nitrite Urine Negative (Negative); Specific Gravity - Urine 1.015 (1.005-1.025); UPreg QC Valid YES; Urine Blood Negative (Negative); Urine Ketones Negative (Negative); Urine Pregnancy NEGATIVE (NEGATIVE); Urine Protein Negative (Neg-Trace)
[2023-02-15 14:30] LABS: Basophils Absolute Auto 0.1 X10*3/uL (0.0-0.2); Eosinophils Absolute Auto 0.4 X10*3/uL (0.0-0.4); Eosinophils Percent Auto 3.5 % (0-4); Hematocrit 39.7 % (37.0-47.0); Hemoglobin 13.4 g/dl (12.0-16.0); Imm Gran Abs Auto 0.03 X10*3/uL (0.00-0.03); Imm Gran Pct Auto 0.3 % (0.0-0.4); Lymphocytes Absolute Auto 3.3 X10*3/uL (1.2-4.9); Lymphocytes Percent Auto 29.4 % (20-40); Mean Corpuscular HGB Conc 33.8 g/dl (31.0-35.0); Mean Corpuscular Hemoglobin 30.5 pg (27.0-33.0); Mean Corpuscular Volume 90.2 fL (80.0-98.0); Mean Platelet Volume 10.2 fL (9.4-12.3); Monocytes Absolute Auto 0.6 X10*3/uL (0.1-1.2); Monocytes Percent Auto 5.1 % (2-11); Neutrophils Absolute Auto 6.8 x10*3/uL (2.0-8.3); Neutrophils Percent Auto 60.7 % (45-73); Platelet Count 257 X10*3/uL (160-400); Red Cell Distribution Width 12.3 % (11.0-16.0); White Blood Count 11.2 X10*3/uL (4.8-10.8)
[2023-02-15 14:36] LABS: COVID-19 Test Negative (Negative); IDNOW Serial# BCCEAD1C
[2023-02-15 14:37] LABS: Amphetamine Screen Urine Not Detected (Not Detect); Barbiturates, Urine Not Detected (Not Detect); Benzodiazepines Screen Urine Not Detected (Not Detect); Cannabinoid Screen Urine POSITIVE (Not Detect); Cocaine Screen Urine POSITIVE (Not Detect); Fentanyl, urine Not Detected (Not Detect); Opiate Screen Urine Not Detected (Not Detect); Phencyclidine Screen Urine Not Detected (Not Detect)
[2023-02-15 14:40] LABS: Acetaminophen LAB < 17 mcg/mL (<30); Alanine Aminotransferase 16 U/L (0-31); Albumin Level 4.6 g/dL (3.5-5.0); Alkaline Phosphatase 99 U/L (39-117); Anion Gap 15 (12-20); Aspartate Amino Transferase 21 U/L (5-31); Bilirubin Total 0.5 mg/dL (0.0-1.0); Blood Urea Nitrogen 13 mg/dL (9-16); Calcium 9.5 mg/dL (8.4-10.2); Carbon Dioxide 23 mmol/L (22-29); Chloride 105 mmol/L (96-108); Creatinine Clr Calc Pharmacy 110.2; Estimated Glomerular Filt Rate > 60; Ethanol 58 mg/dL; Glucose Random 77 mg/dL (60-115); Potassium 3.9 mmol/L (3.3-5.1); Salicylate < 5.0 mg/dL (15-30); Sodium 139 mmol/L (135-145); Total Protein 7.7 g/dL (6.5-8.0)
--- NOTE | 2023-02-15 15:59 | PC.NURSE ---
Pt has been sleeping. Verified medications with [facility] [phone]. No dangerous behaviors.
[2023-02-15 20:38] VITALS: BP 130/67; PULSE 110; RESP 18; TEMP 37.2; O2SAT 95
--- NOTE | 2023-02-16 08:32 | MHC.CARE ---
RAD team completed and emailed a referral for OP therapy to [facility] for this client. RAD will follow up on 02/17/23 to confirm receipt, get an intake date and update client on status.
== END 2023-02-15 21:41 | disposition home or self-care (01) ==
PROVIDERS: Physician Assistant Medical; Emergency Provider Emergency Medicine
DX: R45.851 Suicidal ideations (principal); F33.1 Major depressive disorder, recurrent, moderate; F19.10 Other psychoactive substance abuse, uncomplicated; Z20.822 Contact with and (suspected) exposure to COVID-19
CPT/HCPCS: 80053; 80143; 80179; 80307; 81003; 81025; 85025; 87635; 93005; 99284; 99285; S9485

== ENCOUNTER 2023-03-18 20:08 | Emergency (ER) | payer OTHER, SELFPAY | END 2023-03-18 22:42 | disposition left against medical advice (07) | LOC: HO.ED 22:41 | PROVIDERS: Emergency Provider Emergency Medicine | DX: J45.909 Unspecified asthma, uncomplicated (principal); R05.9 Cough, unspecified ==

== ENCOUNTER 2023-10-13 17:38 | Emergency (ER) | payer OTHER, SELFPAY ==
--- NOTE | 2023-10-13 | ECG_ITS ---
Test Reason : sibdhn Blood Pressure : / mmHG Vent. Rate : 078 BPM Atrial Rate : 078 BPM P-R Int : 158 ms QRS Dur : 076 ms QT Int : 378 ms P-R-T Axes : 070 028 027 degrees QTc Int : 430 ms Artifact in tracing Normal sinus rhythm with sinus arrhythmia Normal ECG When compared with ECG of 15-FEB-2023 14:09, No significant change was found Referred By: Generic ED Physician Electronically Signed By:MADELIN KING
--- NOTE | ~2023-10-13 | XR_ITS ---
EXAMINATION: XR WRIST, RIGHT CLINICAL INFORMATION: Right wrist pain and burning. COMPARISON: None available. TECHNIQUE: PA, lateral, oblique, and scaphoid views of the right wrist. FINDINGS: The bones and soft tissues are normal. No fracture. Alignment is anatomic with normal joint spaces. No erosions or abnormal soft tissue calcifications. XR/XR wrist RT min 3V IMPRESSION: Unremarkable examination.
--- NOTE | 2023-10-13 18:18 | ED.CHESTPAIN ---
HPI - Chest Pain General Chief Complaint: Upper Respiratory Symptoms Stated Complaint: chest pain, SOB, tingling arm' Time Seen by Provider: 10/14/23 00:26 History of Present Illness HPI narrative: The patient is a 32-year-old female with a history of asthma who has had respiratory symptoms for about 3 days. She describes frequent cough as well as nasal discharge and sore throat. She has had a sore throat and shortness of breath as well and has been using her albuterol inhaler more than usual. No definite fevers. Additionally the patient has had about 24 hours of pain in her right wrist. 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 She uses the wrist a great deal and she is finding use of the right wrist more painful recently. No specific trauma however. Related Data Previous Rx's Medication Instructions Recorded albuterol sulfate 90 mcg/actuation 2 puff inhalation Q6H 30 days #1 12/07/22 aerosol inhaler inhaler loratadine 10 mg tablet 10 mg PO DAILY PRN allergies 30 12/07/22 days #30 tabs albuterol sulfate 90 mcg/actuation 2 puff inhalation Q4-6H PRN 10/14/23 aerosol inhaler shortness of breath or wheezing #8.5 grams azithromycin 250 mg tablet 250 mg PO DAILY 4 days #4 tabs 10/14/23 Allergies Allergy/AdvReac Type Severity Reaction Status Date / Time shellfish derived AdvReac Swelling Verified 10/13/23 18:19 Review of Systems Review of Systems: Yes all other systems are reviewed and are negative PMFSH Past Medical History Medical History Alcohol abuse Asthma Depression with suicidal ideation Polysubstance abuse Social History Social History Household Members: Significant Other Housing: Apartment Do you presently have visiting nurse or other home services: No Alcohol intake: current Alcohol intake frequency: 3 or more drinks per day Comment: 1:1 sitter Patient Tobacco Use Status: Never used Tobacco e-Cigarette/Vaping Use: Never Used Substance Use Type: Crack/Cocaine Advance Directives: No Advance Directives Information Provided: No service: No Sexual orientation: Lesbian/Ga/Homosexual Physical Exam Vital Signs: Vital Signs: Last Vital Signs Temp 97.5 F 10/13/23 18:19 Pulse 89 10/13/23 18:19 Resp 18 10/13/23 18:19 BP 118/61 10/13/23 18:19 Pulse Ox 97 10/13/23 18:19 O2 Del Method Room Air 10/13/23 18:19 BMI result Body Mass Index 32.4 Const: Other: Awake, alert, pleasant, cooperative. She does not appear overtly ill or in distress. She had an occasional dry cough. HEENT: Other: The appearance of the face is unremarkable. The posterior pharynx looks entirely normal. Mucous membranes are moist. No swelling or erythema or exudate. Eyes: Other: Pupils are round equal, conjunctivae are clear, extraocular movements intact Neck: Other: No cervical adenopathy Resp: Other: No increased work of breathing. Some minimal wheezing bilaterally. Cardio: Rate: regular rate Rhythm: regular rhythm Heart sounds: S1 normal heart sound present and S2 normal heart sound present Skin: Other: Skin is dry and unremarkable. The skin of the right wrist is unremarkable Neuro: Other: The patient is awake, alert, appropriate, nontoxic. Extrem: Other: The patient has diffuse right wrist tenderness without deformity or obvious swelling. The skin of the right wrist is normal. Negative Wilfredo test. Course Course Course Narrative: RME:?32 yo female hx of mood disorder, depression, substance abuse here for eval of chest congestion and dry cough x1 day. Taking mucinex at home without relief. also reports right wrist pain/ burning x1 day. worse with grabbing items and making a fist. works at [employer] and uses this hand regularly to pick items at work. thinks she over did it at work yesterday. neg tinel and phalen, lungs cta ekg, xr, serology ordered Full HPI, ROS and PE to be performed by the primary ED provider. Medical Decision Making Medical Decision Making MDM Narrative: The patient is a 32-year-old female who is generally in good health aside from mild asthma. She has been ill with respiratory symptoms for 3 days with a cough and wheezing as well as runny nose and sore throat. She is negative for COVID and the flu. I suspect she has some degree of a mild asthmatic bronchitis. She will be placed on a course of azithromycin and prescribed a new inhaler (she has run out of her old inhaler). A separate complaint is pain of the right wrist that may be a repetitive use problem related to her work at an [employer] facility. Her wrist exam reveals some diffuse tenderness but is a nonspecific exam. A right wrist x-ray had been ordered at triage which is negative. With regard to her right wrist pain she will be given a Velcro splint for the wrist. I have advised her to contact her employer to see if they have an occupational health office and if so she should follow up there. If they do not have an occupational health office she may try contacting the [facility]. The patient does not have a primary care doctor. She is encouraged to try to get a primary care doctor. Lab Data Labs: Lab Results 10/13/23 Range/Units 18:45 COVID-19 (ION) Negative (Negative) COVID-19 Clin Com See Note Influenza Type A (TRACEY) Negative (Negative) Influenza Type B (TRACEY) Negative (Negative) Influenza A & B Note See Note Discharge Plan Discharge Clinical Impression: Acute asthmatic bronchitis, Strain of right wrist Patient Disposition: Home, Self-Care Instructions: Asthma (ED), Wrist Injury (ED) Additional Instructions: With regard to your respiratory symptoms I think you might have a mild case of asthmatic bronchitis. Please take the course of azithromycin once a day as prescribed. Use an albuterol inhaler 2 puffs every 4 hours as needed. Drink lot of fluids. With regard to your right wrist injury please wear the splint provided for comfort and immobilization. Icing the wrist several times a day may also be helpful. You may use ibuprofen and acetaminophen as needed for pain. Since this discomfort may be associated with your work activities I would contact your employer and see if they have an occupational health office. If they do I would contact them and see if you can be seen at their occupational health office. If your employer does not have an occupational health office you may contact the [facility] to see if they could evaluate you for a work related issue. Also please work on getting a regular doctor. Return to the emergency room if significantly worse. Prescriptions: New azithromycin 250 mg tablet 250 mg PO DAILY 4 Days Qty: 4 0RF Rx Instructions: start on day 2 of therapy albuterol sulfate 90 mcg/actuation HFA aerosol inhaler 2 puff inhalation Q4-6H PRN (Reason: shortness of breath or wheezing) Qty: 8.5 0RF No Action albuterol sulfate 90 mcg/actuation HFA aerosol inhaler 2 puff INHALATION Q6H 30 Days Qty: 1 0RF loratadine 10 mg tablet 10 mg PO DAILY PRN (Reason: allergies) 30 Days Qty: 30 0RF Referrals: [facility] [Provider Group] (right wrist pain) Stand Alone Forms: Work/School Release
[2023-10-13 18:19] VITALS: BP 118/61; PULSE 89; RESP 18; TEMP 36.4; O2SAT 97; BMI 32.4
[2023-10-13 19:18] LABS: COVID-19 Test Negative (Negative); IDNOW Serial# 08D9AD1C; IDNOW Serial# 152EDE1D; Influenza A Negative (Negative); Influenza B2 Negative (Negative)
[2023-10-14 00:51] VITALS: BP 118/69; PULSE 82; RESP 20; TEMP 36.7; O2SAT 98
[2023-10-14] MEDS: Azithromycin 500 MG TABLET PO (01:05)
== END 2023-10-14 01:09 | disposition home or self-care (01) ==
PROVIDERS: Physician Assistant Medical; Emergency Provider Emergency Medicine
DX: J45.909 Unspecified asthma, uncomplicated (principal); S66.911A Strain of unspecified muscle, fascia and tendon at wrist and hand level, right hand, initial encounter; X50.9XXA Other and unspecified overexertion or strenuous movements or postures, initial encounter; Z11.52 Encounter for screening for COVID-19; Y93.89 Activity, other specified; Y92.59 Other trade areas as the place of occurrence of the external cause; Y99.0 Civilian activity done for income or pay
CPT/HCPCS: 73110; 87502; 87635; 93005; 99283; 99284

== ENCOUNTER → 2023-10-13 17:50 | Outpatient (BNV) | payer OTHER, SELFPAY | PROVIDERS: Emergency Provider Emergency Medicine; Visit Provider Internal Medicine | DX: J45.901 Unspecified asthma with (acute) exacerbation (principal) | CPT/HCPCS: 93010 ==

== ENCOUNTER 2023-12-03 09:16 | Inpatient (IN) | payer OTHER, SELFPAY ==
[2023-12-03 09:48] VITALS: BP 143/98; PULSE 120; RESP 18; TEMP 36.6; O2SAT 98; BMI 31.3
[2023-12-03 12:25] VITALS: BP 153/100; PULSE 118; RESP 16; TEMP 36.6; O2SAT 99
--- NOTE | 2023-12-03 12:25 | ED_ITS ---
HPI - General Adult General Chief complaint: ETOH/Substance Use Stated complaint: substance abuse / crisis Time Seen by Provider: 12/03/23 12:37 Source: patient and family Mode of arrival: ambulatory Limitations: no limitations History of Present Illness HPI narrative: 33-year-old female history of asthma, depression, ADD, cocaine and alcohol use disorder who presents emergency department for evaluation of medical clearance for detox from cocaine and alcohol use. Patient told the triage nurse that she has been using cocaine on and off for 2 years. Patient has been using cocaine 3 or 4 times a day since 12/01/2023 (2-3 days). She can not quantify how much cocaine she uses. She states she has also been drinking 3-4 shots of vodka per day with her last drink being prior to coming to the emergency department. She states that she has had very little sleep over the last 3 days. She states that when she stops drinking alcohol she does get the shakes and may have had episodes of hallucinations but has never been diagnosed with delirium tremens. She states that she does vape nicotine products continually throughout the day. She denied fever, chills, rhinorrhea, sore throat, cough, chest pain, shortness of breath, dyspnea exertion, nausea, vomiting or diarrhea. She denied myalgias or arthralgias. She states she does feel fatigued and tired. The patient did tell the nurse that she was considering hurting herself but did not have a plan. She states she has tried to cut herself in the past. Related Data Previous Rx's Medication Instructions Recorded albuterol sulfate 90 mcg/actuation 2 puff inhalation Q6H 30 days #1 12/07/22 aerosol inhaler inhaler loratadine 10 mg tablet 10 mg PO DAILY PRN allergies 30 12/07/22 days #30 tabs albuterol sulfate 90 mcg/actuation 2 puff inhalation Q4-6H PRN 10/14/23 aerosol inhaler shortness of breath or wheezing #8.5 grams azithromycin 250 mg tablet 250 mg PO DAILY 4 days #4 tabs 10/14/23 Allergies Allergy/AdvReac Type Severity Reaction Status Date / Time shellfish derived AdvReac Swelling Verified 12/03/23 09:47 Review of Systems 2 Review of Systems: Yes all other systems are reviewed and are negative PMFSH Past Medical History Attestation statement: The following information was validated with the patient. [facility] Narrative: Social history: She is here in the emergency department with her father's girlfriend, Palak who seems very supportive. She does vape nicotine products all day. She drinks 4-5 shots of vodka per day. She has been using cocaine continually for the past 3 days, she denies any other drug use. Medical History Alcohol abuse Asthma Depression with suicidal ideation Polysubstance abuse Social History Social History Household Members: Significant Other Housing: Apartment Do you presently have visiting nurse or other home services: No Alcohol intake: current Alcohol intake frequency: 3 or more drinks per day Comment: 1:1 sitter Patient Tobacco Use Status: Never used Tobacco Smoked in Last 30 Days: Yes e-Cigarette/Vaping Use: Never Used Use of substances other than those prescribed or required for medical reasons: Yes Substance Use Type: Crack/Cocaine Advance Directives: No Advance Directives Information Provided: Yes service: No Sexual orientation: Lesbian/Ga/Homosexual Physical Exam ED Vital Signs: Vital Signs - 24 hr 12/03/23 09:48 12/03/23 12:25 12/03/23 16:53 Temperature 98 F 97.9 F 98.7 F Pulse Rate 120 H 118 H 85 Respiratory Rate 18 16 18 Blood Pressure 143/98 H 153/100 H 148/86 H Pulse Oximetry 98 99 97 Oxygen Delivery Method Room Air Room Air Room Air BMI result Body Mass Index 31.3 Exam: General: Awake, alert in no distress, she is very quiet and answers in a very low voice Head: Normocephalic, atraumatic EENT: PERRL, Lids normal, sclera normal, conjunctiva normal, nose normal , ears normal, throat without erythema or exudates Neck: Supple, no adenopathy Lung: breath sounds symmetric, no wheezing, rales or rhonchi Chest: symmetric movement, nontender Heart: regular rate and rhythm, normal S1, S2 no murmurs or rubs Abdomen: soft, non-tender, nondistended, normal bowel sounds Back: no vertebral tenderness, no CVAT Extremities: no deformities, moves all extremities symmetrically Neuro: Awake, alert, oriented, normal speech, cranial nerves intact, moves all extremities symmetrically Psych: Pleasant, cooperative Course Course Course Narrative: Patient is a 33-year-old female who presents emergency department requesting assistance with detox from alcohol and cocaine. She reports that she has drinking a whole bottle of alcohol daily at least for the past 2 days, can not quantify how much cocaine she is using. It is difficult to get her to answer questions during this assessment, she discloses to me at this time that she took 5 Benadryl prior to coming in (3 hours ago) because she felt manic , OTC benadryl - 125mg. Reports she did this as SI attempt. ongoing depression, worsening yesterday Plan: Labs, THOMPSON, ethanol - sound installation worker made aware, will be brought back to main ED Medications Administered Discontinued Medications Generic Name Dose Route Start Last Admin Trade Name Richardsonq PRN Reason Stop Dose Admin Lactated Ringer's 1,000 mls @ 999 mls/hr 12/03/23 13:00 12/03/23 16:46 Lr IV 12/03/23 14:00 Infused .Q1H1M VERNON Infusion Lorazepam 2 mg 12/03/23 16:48 12/03/23 16:52 Lorazepam 1 Mg Tablet PO 12/03/23 16:49 2 mg ONCE STA Administration Nicotine 21 mg 12/03/23 16:48 12/03/23 16:52 Nicotine 21 Mg Patch.[id number] TRANSDERMA 12/03/23 16:49 21 mg ONCE ONE Administration Medical Decision Making Medical Decision Making MDM Narrative: 33-year-old female history of asthma, depression, ADD, cocaine and alcohol use disorder who presents emergency department for evaluation of medical clearance for detox from cocaine and alcohol use. Patient states that she has been using intranasal cocaine and drinking alcohol for at least 2 years. . She has been bingeing on intranasal cocaine and has used intranasal cocaine frequently over the last 2-3 days with no sleep . She also drinks 4-5 shots of vodka per day. She states that she does get shakes and possible hallucinations when she stops drinking but has no been formally diagnosed with delirium tremens. She denies withdrawal seizures. Patient did tell the nurse that she was considering hurting herself but did not have a plan and states she has cut herself in the past. Review of systems was unremarkable and physical exam was unremarkable as well. Differential diagnosis: ?Includes but is not limited to cocaine use disorder, alcohol use disorder, rhabdomyolysis, alcohol withdrawal, myocardial infarction, myocardial ischemia, electrolyte abnormalities, anemia, COVID-19, influenza, RSV Following evaluation was ordered: CBC, CMP, CPK, troponin, ethanol level, drug screen urine, COVID-19, influenza, RSV, urinalysis, urine test, EKG Patient was initially treated with the following: Lactated Ringer's x1 L, CIWA scale q.4 hours Course: 16:17 My interpretation patient's laboratory evaluation as follows: Elevated WBC 54257. CMP was normal. Troponin was below detectable limits. CK was normal. COVID-19, influenza and RSV were negative. Patient's urine tox screen was positive for cocaine only. Urine test was negative. Urinalysis is pending. The patient is medically cleared and I did put in a consult to the care team to evaluate the patient for suicidal ideation and possible detox placement. 18:22 Patient felt like she was withdrawing from alcohol and cocaine and was given Ativan 2 mg IV and nicotine 21 mg patch Patient was seen by the care team and I did obtain the following information from the care team clinician. Patient has been increasing the amount of drugs that she has been using in the hopes of harming herself and dying. Given this finding, be care team clinician felt that the patient would benefit from inpatient care and there is appropriate bed here at this facility therefore the patient will be admitted for further management of her suicidal ideation and alcohol and cocaine use disorder Admission/Observation Consideration of admission/observation: Escalation of care including admission/observation considered Lab Data MDM Lab Attestation statement: I reviewed the patient's lab results. 12/03/23 13:14 12/03/23 13:14 Labs: Lab Results 12/03/23 12/03/23 12/03/23 Range/Units 13:14 13:15 14:47 WBC 12.6 H (4.8-10.8) X10*3/uL RBC 4.62 (4.20-5.50) X10*6/uL Hgb 13.8 (12.0-16.0) g/dl Hct 40.0 (37.0-47.0) % MCV 86.6 (80.0-98.0) fL MCH 29.9 (27.0-33.0) pg MCHC 34.5 (31.0-35.0) g/dl RDW 11.9 (11.0-16.0) % Plt Count 247 (160-400) X10*3/uL MPV 10.6 (9.4-12.3) fL Immature Gran % (Auto) 0.2 (0.0-0.4) % Neut % (Auto) 76.5 H (45-73) % Lymph % (Auto) 15.9 L (20-40) % [place] % (Auto) 5.4 (2-11) % Eos % (Auto) 1.4 (0-4) % Baso % (Auto) 0.6 (0-2) % Lymph # (Auto) 2.0 (1.2-4.9) X10*3/uL [place] # (Auto) 0.7 (0.1-1.2) X10*3/uL Eos # (Auto) 0.2 (0.0-0.4) X10*3/uL Baso # (Auto) 0.1 (0.0-0.2) X10*3/uL Abs Immat Gran (auto) 0.03 (0.00-0.03) X10*3/uL Absolute Neuts (auto) 9.6 H (2.0-8.3) x10*3/uL Absolute Nucleated RBC 0.000 (0.0-0.012) X10*3/uL Nucleated RBC % (auto) 0.0 (0.0-0.2) /100WBC Sodium 137 (135-145) mmol/L Potassium 3.7 (3.3-5.1) mmol/L Chloride 105 (96-108) mmol/L Carbon Dioxide 23 (22-29) mmol/L Anion Gap 13 (12-20) BUN 10 (9-16) mg/dL Creatinine 0.80 (0.5-1.4) mg/dL Estim Creat Clear Calc 100.2 Estimated GFR > 60 Random Glucose 109 (60-115) mg/dL Calcium 10.0 (8.4-10.2) mg/dL Total Bilirubin 0.7 (0.0-1.0) mg/dL AST 20 (5-31) U/L ALT 19 (0-31) U/L Alkaline Phosphatase 104 (39-117) U/L Total Creatine Kinase 112 (26-140) U/L Troponin I High Sens < 2.7 (<3.5-17.0) ng/L Total Protein 8.1 H (6.5-8.0) g/dL Albumin 4.5 (3.5-5.0) g/dL Urine Color Yellow Urine Appearance Clear Urine pH 6.0 (5.0-9.0) Ur Specific [place] <= 1.005 (1.005-1.025) Urine Protein Negative (Neg-Trace) mg/dL Urine Glucose (UA) Negative (Negative) mg/dL Urine Ketones 15 (Negative) mg/dL Urine Blood Large (3+) H (Negative) Urine Nitrite Negative (Negative) Ur Leukocyte Esterase Negative (Negative) Urine Test NEGATIVE (NEGATIVE) Urine Opiates Screen Not Detected (Not Detect) Urine Fentanyl Screen Not Detected (Not Detect) Ur Barbiturates Screen Not Detected (Not Detect) Ur Phencyclidine Scrn Not Detected (Not Detect) Ur Amphetamines Screen Not Detected (Not Detect) U Benzodiazepines Scrn Not Detected (Not Detect) Urine Cocaine Screen POSITIVE H (Not Detect) U Marijuana (THC) Screen Not Detected (Not Detect) Ethyl Alcohol < 10 mg/dL Influenza Type A (PCR) NEGATIVE (Negative) Influenza Type B (PCR) NEGATIVE (Negative) RSV RNA Qual (PCR) NEGATIVE (Negative) SARS-CoV-2 RNA (RT-PCR) NEGATIVE (Negative) Independent Interpretation I performed an independent interpretation of an: EKG Interpretation: My independent interpretation patient's 12 EKG is as follows: Normal sinus rhythm with a rate of 90, normal MO interval, QRS duration and QTC interval, no ST segment elevation, no ST segment depression, no PACs, no PVCs, no significant T-wave abnormalities-this is a normal EKG. Independent Historian Clinical information obtained from an independent historian. History obtained from or confirmed by: Other (Palak, father's girlfriend) Discharge Plan Discharge Clinical Impression: Suicidal ideation, Cocaine use, Alcohol use Patient Disposition: Admitted As Inpatient Prescriptions: No Action albuterol sulfate 90 mcg/actuation HFA aerosol inhaler 2 puff INHALATION Q6H 30 Days Qty: 1 0RF loratadine 10 mg tablet 10 mg PO DAILY PRN (Reason: allergies) 30 Days Qty: 30 0RF azithromycin 250 mg tablet 250 mg PO DAILY 4 Days Qty: 4 0RF Rx Instructions: start on day 2 of therapy albuterol sulfate 90 mcg/actuation HFA aerosol inhaler 2 puff inhalation Q4-6H PRN (Reason: shortness of breath or wheezing) Qty: 8.5 0RF
--- NOTE | 2023-12-03 12:28 | PC.NURSE ---
Addendum entered by Margaret Machado RN 12/03/23 12:38: Upon further questioning, pt reports she intentionally took the benadryl because she wanted to harm herself. Pt slow to respond. When asked if she has tried to harm herself in the past, when asked how she did this patient trailed off and didn't answer the question. folder seamer made aware. Pt moved to ED for further monitoring and SI precautions. Original Note: Reports taking 5 tabs benadryl for susan prior to coming in.
--- NOTE | 2023-12-03 13:02 | ECG_ITS ---
Test Reason : Cocaine use Blood Pressure : / mmHG Vent. Rate : 098 BPM Atrial Rate : 098 BPM P-R Int : 156 ms QRS Dur : 086 ms QT Int : 352 ms P-R-T Axes : 065 013 016 degrees QTc Int : 449 ms Normal sinus rhythm Normal ECG When compared with ECG of 13-OCT-2023 17:50, No significant change was found Referred By: Ravi Lou Electronically Signed By:Alan Velasquez
--- NOTE | 2023-12-03 13:15 | MHC.EDTECH ---
patient belongings in locker 9. patient was changed over by security
[2023-12-03 13:29] LABS: MANUAL DIFF FLAG NO
[2023-12-03 13:40] LABS: Basophils Absolute Auto 0.1 X10*3/uL (0.0-0.2); Basophils Percent Auto 0.6 % (0-2); Eosinophils Absolute Auto 0.2 X10*3/uL (0.0-0.4); Eosinophils Percent Auto 1.4 % (0-4); Hemoglobin 13.8 g/dl (12.0-16.0); Imm Gran Abs Auto 0.03 X10*3/uL (0.00-0.03); Imm Gran Pct Auto 0.2 % (0.0-0.4); Lymphocytes Percent Auto 15.9 % (20-40); Mean Corpuscular HGB Conc 34.5 g/dl (31.0-35.0); Mean Corpuscular Hemoglobin 29.9 pg (27.0-33.0); Mean Corpuscular Volume 86.6 fL (80.0-98.0); Mean Platelet Volume 10.6 fL (9.4-12.3); Monocytes Absolute Auto 0.7 X10*3/uL (0.1-1.2); Monocytes Percent Auto 5.4 % (2-11); Neutrophils Absolute Auto 9.6 x10*3/uL (2.0-8.3); Neutrophils Percent Auto 76.5 % (45-73); Platelet Count 247 X10*3/uL (160-400); Red Blood Count 4.62 X10*6/uL (4.20-5.50); Red Cell Distribution Width 11.9 % (11.0-16.0); White Blood Count 12.6 X10*3/uL (4.8-10.8)
[2023-12-03 13:48] LABS: Alanine Aminotransferase 19 U/L (0-31); Albumin Level 4.5 g/dL (3.5-5.0); Alkaline Phosphatase 104 U/L (39-117); Anion Gap 13 (12-20); Aspartate Amino Transferase 20 U/L (5-31); Bilirubin Total 0.7 mg/dL (0.0-1.0); Blood Urea Nitrogen 10 mg/dL (9-16); Carbon Dioxide 23 mmol/L (22-29); Chloride 105 mmol/L (96-108); Creatinine Clr Calc Pharmacy 100.2; Estimated Glomerular Filt Rate > 60; Ethanol < 10 mg/dL; Glucose Random 109 mg/dL (60-115); Potassium 3.7 mmol/L (3.3-5.1); Sodium 137 mmol/L (135-145); Total Protein 8.1 g/dL (6.5-8.0)
[2023-12-03] MEDS: Lactated Ringers 1,000 ML 999 ML IV (13:52)
[2023-12-03 14:10] LABS: Troponin-I High Sensitivity < 2.7 ng/L (<3.5-17.0)
[2023-12-03 14:26] LABS: Influenza A PCR NEGATIVE (Negative); Influenza B PCR NEGATIVE (Negative); Resp Syncy Virus RNA Qual PCR NEGATIVE (Negative); SARS COV2 PCR INHOUSE NEGATIVE (Negative)
[2023-12-03 15:11] LABS: Amphetamine Screen Urine Not Detected (Not Detect); Barbiturates, Urine Not Detected (Not Detect); Benzodiazepines Screen Urine Not Detected (Not Detect); Cannabinoid Screen Urine Not Detected (Not Detect); Cocaine Screen Urine POSITIVE (Not Detect); Fentanyl, urine Not Detected (Not Detect); Opiate Screen Urine Not Detected (Not Detect); Phencyclidine Screen Urine Not Detected (Not Detect)
[2023-12-03 15:29] LABS: Appearance Urine Clear; Color Urine Yellow; Glucose Urine UA Negative (Negative); Leukocyte Esterase Urine Negative (Negative); Nitrite Urine Negative (Negative); Specific Gravity - Urine <= 1.005 (1.005-1.025); UMIC TRIGGER UACC YES; Urine Blood Large (3+) (Negative); Urine Ketones 15 mg/dL (Negative); Urine Protein Negative (Neg-Trace)
[2023-12-03 15:36] LABS: UPreg QC Valid YES; Urine Pregnancy NEGATIVE (NEGATIVE)
--- NOTE | 2023-12-03 16:13 | PM.EVENT ---
Event Note Date of Service: 12/03/23 Event Note: Addiction consult placed for patient requesting ATS admission Chart reviewed, RN note states patient reported taking medications with intention to harm herself. Will require crisis evaluation and clearance (if appropriate) prior to evaluation for ATS placement. Discussed with ED provider Time Spent With Patient Time: Total time managing care of this patient today ____ minutes.
[2023-12-03] MEDS: Nicotine 21 MG PATCH.TD24 TRANSDERMA (16:52)
[2023-12-03] MEDS: LORazepam 1 MG TABLET 2 MG PO (16:52)
[2023-12-03 16:53] VITALS: BP 148/86; PULSE 85; RESP 18; TEMP 37.1; O2SAT 97
--- NOTE | 2023-12-03 17:42 | PC.NURSE ---
Resting comfortably without s/s of pain or discomfort. Friends at bedside
[2023-12-03 18:25] LABS: Bacteria Urine None Seen (None Seen); Hyaline Casts Urine 0-2 /LPF (0-2); Squamous Epithelial Cell Urine 0-2 /HPF (0-2); WBC Urine 0-5 /HPF (0-5)
--- NOTE | 2023-12-03 19:18 | PC.NURSE ---
assumed care of pt. pt resting in stretcher, eyes shut, no acute distress noted, 1:1 sitter at bedside. pending care team consult.
[2023-12-03 21:08] VITALS: BP 115/86; PULSE 100; RESP 18; TEMP 36.6; O2SAT 97
[2023-12-03] MEDS: Acetaminophen 325 MG TABLET 650 MG PO (23:52)
[2023-12-04] MEDS: LORazepam 1 MG TABLET PO ×4 (03:22→20:54)
[2023-12-04] MEDS: Loratadine 10 MG TABLET PO (03:22)
--- NOTE | 2023-12-04 06:39 | PC.ADMIT ---
Resumed care of pt at 2300, pt arrived to unit from ED at 2253, signed CV. Sharps check completed by RN, Jo-Ann. PT is alert and oriented x3, pleasant upon approach. pt has flat affect but will smile at times during conversation. pt endorses anxiety 8/10 and depression 10/. pt denied SI/HI/AVH. CIWA score initially 10, pt had requested for her medication to help her sleep, but when this RN arrived in her room, she appeared to have slept. During the admission process, pt reported I am here because I need help, I need referral to detox center so I can get all the help I need. I have been here before with the same issue I am presenting now, and I was referred to a detox center in the past but I never attended, but you know, I never accepted it then that I had any issues but now I know its a big problem I have and am willing to get the help now . At around 0330, pt approached nurse and requested for medication for sleep, CIWA score 5, and mildly anxious, administered ativan 1mg po with +effect as well as loratadine 10mg po for allergy. pt reported feels safe on the unit.
[2023-12-04 08:00] VITALS: BP 113/81; PULSE 104; RESP 16; TEMP 37.1; O2SAT 98
[2023-12-04 08:17] LABS: Alanine Aminotransferase 16 U/L (0-31); Albumin Level 3.7 g/dL (3.5-5.0); Alkaline Phosphatase 105 U/L (39-117); Anion Gap 11 (12-20); Aspartate Amino Transferase 14 U/L (5-31); Bilirubin Total 0.5 mg/dL (0.0-1.0); Blood Urea Nitrogen 14 mg/dL (9-16); Calcium 9.1 mg/dL (8.4-10.2); Carbon Dioxide 25 mmol/L (22-29); Chloride 105 mmol/L (96-108); Cholesterol 166 mg/dL (<200); Creatinine Clr Calc Pharmacy 114.6; Estimated Glomerular Filt Rate > 60; Glucose Fasting 103 mg/dL (60-99); HDL Cholesterol 42 mg/dL (>40); LDL Cholesterol Calculated 92 mg/dL (<100); Sodium 137 mmol/L (135-145); Total Protein 6.6 g/dL (6.5-8.0); Triglycerides 160 mg/dL (<150)
[2023-12-04] MEDS: Acetaminophen 325 MG TABLET 650 MG PO ×2 (09:36→15:49)
--- NOTE | 2023-12-04 10:48 | P.HPPS_ITS ---
HPI Date of Service: 12/04/23 Chief Complaint: SI substance abuse Sources of Information: patient interviewed and chart reviewed HPI Subjective Notes: Conditional Voluntary Healthcare Proxy: No Guardianship: No Medical Problems Affecting Mental Status: No Narrative: 33 yo HF presents reporting - that she feels on edge hyped up - can go days without need for sleep - even when not on cocaine- reports hospitalized x2 last year and was put on hydroxyzine, didn't fu with outpatient therapy or medication- did learn some coping- was using but always ends up going back to these bad habits then starts having negative thoughts- does say feels keyed up , racing thoughts, not sleeping- NO hx of SA but does cut herself or has in past- NKDA Substance use primarily cocaine, but has also been drinking alcohol- no hx withdrawl , doesn't crave alcohol but does crave cocaine- Past Psychiatric History: HPI from 12/02: Overall presented to the ED with depression and suicidal thoughts. Substance use. Recent increase in self-harm by biting self hitting self. Tox positive for cocaine, fentanyl. Also daily drinking. Today patient reports having lifelong episodes poor frustration tolerance, getting angry and losing temper and lashing out with intermittent episodes of hurting herself by biting. Reports this happens if there was something upsetting such as financial stress. Reports substances also make things worse. Reports sleep has recently been very difficult. Anxiety has been high. Intermittent thoughts of suicide. Reports she had not self harmed in quite a long time until 1 week ago. No psychosis. No manic symptoms. Endorses history of low mood, anxiety, motivation and sleep disturbance even when sober at times. Snorts cocaine a few times per week. Daily drinking. No history of detox, DTs or seizures. Informed urine was positive for fentanyl. Very surprised by same and cocaine may have been laced with fentanyl. Was sober for 2 years up until 1 year ago. 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 We discussed potential treatment options including therapy, perhaps rehab and medications. Very eager to return to work as she has missed lots of time. Agreed to start Prozac and utilize low-dose Seroquel for sleep and anxiety. Also wants to speak with treatment team tomorrow about a letter for her job so they know she is in the hospital. Medical Evaluation Reviewed: Yes [facility] Medical History (Updated 12/04/23 @ 18:57 by Lizzie John MD) Alcohol abuse Depression with suicidal ideation Polysubstance abuse Asthma Family History: adhd, dad bipolar on zoloft Social History: Living with girlfriend of 1 year. Reports this as a positive and supportive relationship. 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 Calling out a lot over the last 1 month. Has been in the [place] for around 4 years and was in [place] prior to that. 0 children. No legal issues. Substance History: cocaine primary drug of choice, also drinks etoh- Trauma History: reports history but no details provided Diagnostics Vital Signs (24Hr): Vital Signs - 24 hr 12/03/23 12:25 12/03/23 16:53 12/03/23 21:08 Temperature 97.9 F 98.7 F 97.9 F Pulse Rate 118 H 85 100 Respiratory Rate 16 18 18 Blood Pressure 153/100 H 148/86 H 115/86 Pulse Oximetry 99 97 97 Oxygen Delivery Method Room Air Room Air Room Air BMI result Body Mass Index 31.3 Labs 12/03/23 13:14 12/04/23 07:21 Labs: Laboratory Results - last 48 hr 12/03/23 12/03/23 12/03/23 13:14 13:15 14:47 WBC 12.6 H RBC 4.62 Hgb 13.8 Hct 40.0 MCV 86.6 MCH 29.9 MCHC 34.5 RDW 11.9 Plt Count 247 MPV 10.6 Immature Gran % (Auto) 0.2 Neut % (Auto) 76.5 H Lymph % (Auto) 15.9 L [place] % (Auto) 5.4 Eos % (Auto) 1.4 Baso % (Auto) 0.6 Lymph # (Auto) 2.0 [place] # (Auto) 0.7 Eos # (Auto) 0.2 Baso # (Auto) 0.1 Abs Immat Gran (auto) 0.03 Absolute Neuts (auto) 9.6 H Absolute Nucleated RBC 0.000 Nucleated RBC % (auto) 0.0 Sodium 137 Potassium 3.7 Chloride 105 Carbon Dioxide 23 Anion Gap 13 BUN 10 Creatinine 0.80 Estim Creat Clear Calc 100.2 Estimated GFR > 60 Random Glucose 109 Fasting Glucose Calcium 10.0 Total Bilirubin 0.7 AST 20 ALT 19 Alkaline Phosphatase 104 Total Creatine Kinase 112 Troponin I High Sens < 2.7 Total Protein 8.1 H Albumin 4.5 Triglycerides Cholesterol LDL Cholesterol, Calc HDL Cholesterol Urine Color Yellow Urine Appearance Clear Urine pH 6.0 Ur Specific [place] <= 1.005 Urine Protein Negative Urine Glucose (UA) Negative Urine Ketones 15 Urine Blood Large (3+) H Urine Nitrite Negative Ur Leukocyte Esterase Negative Urine RBC 6-10 H Urine WBC 0-5 Ur Squamous Epith Cells 0-2 Urine Bacteria None Seen Hyaline Casts 0-2 Urine Test NEGATIVE Urine Opiates Screen Not Detected Urine Fentanyl Screen Not Detected Ur Barbiturates Screen Not Detected Ur Phencyclidine Scrn Not Detected Ur Amphetamines Screen Not Detected U Benzodiazepines Scrn Not Detected Urine Cocaine Screen POSITIVE H U Marijuana (THC) Screen Not Detected Ethyl Alcohol < 10 Influenza Type A (PCR) NEGATIVE Influenza Type B (PCR) NEGATIVE RSV RNA Qual (PCR) NEGATIVE SARS-CoV-2 RNA (RT-PCR) NEGATIVE 12/04/23 07:21 WBC RBC Hgb Hct MCV MCH MCHC RDW Plt Count MPV Immature Gran % (Auto) Neut % (Auto) Lymph % (Auto) [place] % (Auto) Eos % (Auto) Baso % (Auto) Lymph # (Auto) [place] # (Auto) Eos # (Auto) Baso # (Auto) Abs Immat Gran (auto) Absolute Neuts (auto) Absolute Nucleated RBC Nucleated RBC % (auto) Sodium 137 Potassium 4.0 Chloride 105 Carbon Dioxide 25 Anion Gap 11 L BUN 14 Creatinine 0.70 Estim Creat Clear Calc 114.6 Estimated GFR > 60 Random Glucose Fasting Glucose 103 H Calcium 9.1 D Total Bilirubin 0.5 AST 14 ALT 16 Alkaline Phosphatase 105 Total Creatine Kinase Troponin I High Sens Total Protein 6.6 Albumin 3.7 Triglycerides 160 H Cholesterol 166 LDL Cholesterol, Calc 92 HDL Cholesterol 42 Urine Color Urine Appearance Urine pH Ur Specific [place] Urine Protein Urine Glucose (UA) Urine Ketones Urine Blood Urine Nitrite Ur Leukocyte Esterase Urine RBC Urine WBC Ur Squamous Epith Cells Urine Bacteria Hyaline Casts Urine Test Urine Opiates Screen Urine Fentanyl Screen Ur Barbiturates Screen Ur Phencyclidine Scrn Ur Amphetamines Screen U Benzodiazepines Scrn Urine Cocaine Screen U Marijuana (THC) Screen Ethyl Alcohol Influenza Type A (PCR) Influenza Type B (PCR) RSV RNA Qual (PCR) SARS-CoV-2 RNA (RT-PCR) Meds/Allergies Allergies Allergies Allergy/AdvReac Type Severity Reaction Status Date / Time shellfish derived AdvReac Swelling Verified 12/03/23 09:47 Mental Status Exam Mental Status Exam Patient Appearance: Well Grooomed and Appropriate Patient Orientation: Person, Place, Time and Situation Level of Consciousness: Awake and Appropriate Patient Behavior: Appropriate and Cooperative Mood Description: Nervous (but keyed up) Affect Description: Apprehensive (intense?) Patient Cognition Impaired: No Ability to Follow Directions: Good Speech Pattern: Clear and Rapid Hallucinations: None Delusions: Not Present Thought Process: Goal Oriented Depressive Symptoms: Increased Anxiety, Insomnia, Muscle Tension and Increased Irritability Abnormal Motor Activity Signs and Symptoms: Hyperactivity Judgement: Fair Assessment & Plan Assessment & Plan (1) Alcohol use: Status: Acute Code(s): Z78.9 - Other specified health status Assessment and Plan: monitoring and prn ativan- may want to taper this quickly pt hopping to get in a program for sub use- (2) Cocaine use: Status: Acute Code(s): F14.90 - Cocaine use, unspecified, uncomplicated Assessment and Plan: cravings for cocaine- reported- (3) Depression with suicidal ideation: Status: Acute Code(s): F32.A - Depression, unspecified; R45.851 - Suicidal ideations Assessment and Plan: discussed starting lamotrigine and quetiapine Patient educated on: medication risk/benefits and therapeutic strategies Informed Consent: understands Reason for continued inpatient stay Substantial Risk for: harm to self and rapid decompensation Statement Statement: I have reviewed the history and physical and performed a pertinent examination on my patient. No changes have occurred unless specified. If the History and Physical was not performed prior to admission, the Hospitalist's service will be consulted for completing the admission physical. Time Spent With Patient Time: Total time managing care of this patient today ____ minutes.
[2023-12-04] MEDS: lamoTRIgine 25 MG TABLET 12.5 MG PO ×2 (15:08→20:53)
[2023-12-04] MEDS: Albuterol Sulfate 90 MCG 8 GM INHALER 2 PUFF INHALE (15:48)
[2023-12-04 20:05] VITALS: BP 144/60; PULSE 110; RESP 18; TEMP 37; O2SAT 99
[2023-12-04] MEDS: QUEtiapine Fumarate 50 MG TABLET PO (20:54)
[2023-12-04] MEDS: hydrOXYzine HCL 25 MG TABLET PO (22:29)
[2023-12-05] MEDS: Albuterol Sulfate 90 MCG 8 GM INHALER 2 PUFF INHALE ×3 (03:03→17:13)
--- NOTE | 2023-12-05 04:11 | PC.NURSE ---
Pt scored a 7 on CIWA around 0300, declined ativan 0.5 mg. Pt did not appear to be in any distress. She will come to staff if needed.
[2023-12-05 08:00] VITALS: BP 129/75; PULSE 105; RESP 16; TEMP 36.6; O2SAT 99
[2023-12-05] MEDS: lamoTRIgine 25 MG TABLET 12.5 MG PO (08:55)
[2023-12-05] MEDS: LORazepam 1 MG TABLET PO ×3 (09:26→21:01)
[2023-12-05] MEDS: Acetaminophen 325 MG TABLET 650 MG PO (09:26)
[2023-12-05] MEDS: Nicotine 14 MG PATCH.TD24 TRANSDERMA (13:00)
--- NOTE | 2023-12-05 13:02 | HO.PSYCHPN ---
Subjective Subjective Date of Service: 12/05/23 Reason For Visit: SI substance abuse Subjective Notes: Conditional Voluntary Interim History: 33 yo HF struggling with ETOH withdrawl was drinking heavily for 2 wks or so prior to admission- as well as doing cocaine- mostly in bed this am took ativan for withdrawl= Discussed seroquel and ? sleep eating but she didn't that was it- woke with the munchies Wanted ativan for anxiety and discussed with patient this was only being used to taper off alcohol- pt was not interested in continuing discussion at that point- Medication Compliance: Yes Side effects from medications: Yes (?sleep eating) Attending Groups: Intermittent Review of Systems Acute medical concerns: No Medical Review of Systems: unchanged Mental Status Exam Mental Status Exam Patient Appearance: Fatigued Patient Orientation: Person, Place, Time and Situation Level of Consciousness: Awake and Drowsy Patient Behavior: Anxious Behavior Comments: seems irritable, annoyed she can't get ativan rxed for anxiety Mood Description: Blunted Affect Description: Withdrawn Patient Cognition Impaired: No Ability to Follow Directions: Fair Speech Pattern: Clear Thought Process: Intact and Goal Oriented Thought Content: positive for Intact and positive for Suicidal Ideation Depressive Symptoms: Increased Anxiety and Increased Irritability Judgement: Fair Diagnostics Vital Signs (24Hr): Vital Signs - 24 hr 12/04/23 20:05 12/05/23 08:00 Temperature 98.6 F 97.8 F Pulse Rate 110 H 105 H Respiratory Rate 18 16 Blood Pressure 144/60 H 129/75 Pulse Oximetry 99 99 Oxygen Delivery Method Room Air Room Air BMI result Body Mass Index 31.3 Labs 12/03/23 13:14 12/04/23 07:21 Labs: Laboratory Results - last 48 hr 12/03/23 12/03/23 12/03/23 13:14 13:15 14:47 WBC 12.6 H RBC 4.62 Hgb 13.8 Hct 40.0 MCV 86.6 MCH 29.9 MCHC 34.5 RDW 11.9 Plt Count 247 MPV 10.6 Immature Gran % (Auto) 0.2 Neut % (Auto) 76.5 H Lymph % (Auto) 15.9 L [place] % (Auto) 5.4 Eos % (Auto) 1.4 Baso % (Auto) 0.6 Lymph # (Auto) 2.0 Mora # (Auto) 0.7 Eos # (Auto) 0.2 Baso # (Auto) 0.1 Abs Immat Gran (auto) 0.03 Absolute Neuts (auto) 9.6 H Absolute Nucleated RBC 0.000 Nucleated RBC % (auto) 0.0 Sodium 137 Potassium 3.7 Chloride 105 Carbon Dioxide 23 Anion Gap 13 BUN 10 Creatinine 0.80 Estim Creat Clear Calc 100.2 Estimated GFR > 60 Random Glucose 109 Fasting Glucose Calcium 10.0 Total Bilirubin 0.7 AST 20 ALT 19 Alkaline Phosphatase 104 Total Creatine Kinase 112 Troponin I High Sens < 2.7 Total Protein 8.1 H Albumin 4.5 Triglycerides Cholesterol LDL Cholesterol, Calc HDL Cholesterol Urine Color Yellow Urine Appearance Clear Urine pH 6.0 Ur Specific [place] <= 1.005 Urine Protein Negative Urine Glucose (UA) Negative Urine Ketones 15 Urine Blood Large (3+) H Urine Nitrite Negative Ur Leukocyte Esterase Negative Urine RBC 6-10 H Urine WBC 0-5 Ur Squamous Epith Cells 0-2 Urine Bacteria None Seen Hyaline Casts 0-2 Urine Test NEGATIVE Urine Opiates Screen Not Detected Urine Fentanyl Screen Not Detected Ur Barbiturates Screen Not Detected Ur Phencyclidine Scrn Not Detected Ur Amphetamines Screen Not Detected U Benzodiazepines Scrn Not Detected Urine Cocaine Screen POSITIVE H U Marijuana (THC) Screen Not Detected Ethyl Alcohol < 10 Influenza Type A (PCR) NEGATIVE Influenza Type B (PCR) NEGATIVE RSV RNA Qual (PCR) NEGATIVE SARS-CoV-2 RNA (RT-PCR) NEGATIVE 12/04/23 07:21 WBC RBC Hgb Hct MCV MCH MCHC RDW Plt Count MPV Immature Gran % (Auto) Neut % (Auto) Lymph % (Auto) Mor[place] % (Auto) Eos % (Auto) Baso % (Auto) Lymph # (Auto) [place] # (Auto) Eos # (Auto) Baso # (Auto) Abs Immat Gran (auto) Absolute Neuts (auto) Absolute Nucleated RBC Nucleated RBC % (auto) Sodium 137 Potassium 4.0 Chloride 105 Carbon Dioxide 25 Anion Gap 11 L BUN 14 Creatinine 0.70 Estim Creat Clear Calc 114.6 Estimated GFR > 60 Random Glucose Fasting Glucose 103 H Calcium 9.1 D Total Bilirubin 0.5 AST 14 ALT 16 Alkaline Phosphatase 105 Total Creatine Kinase Troponin I High Sens Total Protein 6.6 Albumin 3.7 Triglycerides 160 H Cholesterol 166 LDL Cholesterol, Calc 92 HDL Cholesterol 42 Urine Color Urine Appearance Urine pH Ur Specific [place] Urine Protein Urine Glucose (UA) Urine Ketones Urine Blood Urine Nitrite Ur Leukocyte Esterase Urine RBC Urine WBC Ur Squamous Epith Cells Urine Bacteria Hyaline Casts Urine Test Urine Opiates Screen Urine Fentanyl Screen Ur Barbiturates Screen Ur Phencyclidine Scrn Ur Amphetamines Screen U Benzodiazepines Scrn Urine Cocaine Screen U Marijuana (THC) Screen Ethyl Alcohol Influenza Type A (PCR) Influenza Type B (PCR) RSV RNA Qual (PCR) SARS-CoV-2 RNA (RT-PCR) Medications Medications Current Medications Acetaminophen (Acetaminophen 325 Mg Tablet) 650 mg PO Q6H PRN PRN Reason: Headache/Pain Mild Scale (1-3) Last Admin: 12/05/23 09:26 Dose: 650 mg Al Hydroxide/Mg Hydroxide (Magnesium Hydrox/Alum Hydrox 30 Ml Oral.Susp) 30 ml PO Q6H PRN PRN Reason: Heartburn/Nausea Albuterol Sulfate (Albuterol Sulfate 90 Mcg 8 Gm Inhaler) 2 puff INHALE Q4H PRN PRN Reason: shortness of breath or wheezing Last Admin: 12/05/23 08:55 Dose: 2 puff Hydroxyzine HCl (Hydroxyzine Hcl 25 Mg Tablet) 25 mg PO Q6H PRN PRN Reason: Anxiety Last Admin: 12/04/23 22:29 Dose: 25 mg Lamotrigine (Lamotrigine 25 Mg Tablet) 12.5 mg PO BID [facility] Last Admin: 12/05/23 08:55 Dose: 12.5 mg Loratadine (Loratadine 10 Mg Tablet) 10 mg PO DAILY PRN PRN Reason: allergies Last Admin: 12/04/23 03:22 Dose: 10 mg Lorazepam (Lorazepam 1 Mg Tablet) 0 mg PO Q4H PRN PRN Reason: Alcohol Withdrawal Stop: 12/07/23 20:47 Lorazepam (Lorazepam 1 Mg Tablet) 1 mg PO Q4H PRN PRN Reason: Alcohol Withdrawal Last Admin: 12/05/23 09:26 Dose: 1 mg Lorazepam (Lorazepam 0.5 Mg Tablet) 0.5 mg PO Q4H PRN PRN Reason: Alcohol Withdrawal Magnesium Hydroxide (Milk Of Magnesia 30 Ml Oral.Susp) 30 ml PO DAILY PRN PRN Reason: Constipation Nicotine (Nicotine 14 Mg Patch.Td24) 14 mg TRANSDERMA DAILY [facility] Nicotine Polacrilex (Nicotine Polacrilex 2 Mg Gum) 2 mg BUCCAL Q1H PRN PRN Reason: Nicotine Cravings Quetiapine Fumarate (Quetiapine Fumarate 50 Mg Tablet) 50 mg PO BEDTIME [facility] Last Admin: 12/04/23 20:54 Dose: 50 mg Allergies Allergies Allergy/AdvReac Type Severity Reaction Status Date / Time shellfish derived AdvReac Swelling Verified 12/03/23 09:47 Assessment & Plan Assessment & Plan (1) Alcohol use: Status: Acute Code(s): Z78.9 - Other specified health status Assessment and Plan: monitoring and prn ativan- for etoh withdrawl may want to taper this quickly pt hoping to get in a program for sub use- (2) Cocaine use: Status: Acute Code(s): F14.90 - Cocaine use, unspecified, uncomplicated Assessment and Plan: cravings for cocaine- reported- (3) Depression with suicidal ideation: Status: Acute Code(s): F32.A - Depression, unspecified; R45.851 - Suicidal ideations Assessment and Plan: discussed starting lamotrigine and quetiapine 12/05/23 tolerating start of lamotrigine and quetiapine- pt doesn't seem put off by ? sleep eating- felt it overall helped Plan inc lamotrigine to 12.5mg in am and 25mg pm seroquel 50mg mr x1 instead of seroquel plus aterax Patient educated on: diagnosis and medication risk/benefits Informed Consent: understands Reason for continued inpatient stay Substantial Risk for: harm to self and rapid decompensation Time Spent With Patient Time: Total time managing care of this patient today ____ minutes.
[2023-12-05] MEDS: QUEtiapine Fumarate 25 MG TABLET PO (17:11)
[2023-12-05 20:02] VITALS: BP 112/76; PULSE 120; RESP 18; TEMP 36.6; O2SAT 98
[2023-12-05] MEDS: lamoTRIgine 25 MG TABLET PO (21:01)
[2023-12-05] MEDS: QUEtiapine Fumarate 50 MG TABLET PO ×2 (21:01→21:26)
[2023-12-06] MEDS: QUEtiapine Fumarate 25 MG TABLET PO ×2 (00:01→10:01)
[2023-12-06 08:00] VITALS: BP 121/65; PULSE 81; RESP 16; TEMP 36.4; O2SAT 97
[2023-12-06] MEDS: Albuterol Sulfate 90 MCG 8 GM INHALER 2 PUFF INHALE ×2 (09:50→17:32)
[2023-12-06] MEDS: lamoTRIgine 25 MG TABLET 12.5 MG PO (09:56)
[2023-12-06] MEDS: Nicotine 14 MG PATCH.TD24 TRANSDERMA (09:56)
[2023-12-06] MEDS: Nicotine Polacrilex 2 MG GUM BUCCAL (13:07)
[2023-12-06] MEDS: LORazepam 1 MG TABLET PO (13:08)
--- NOTE | 2023-12-06 13:39 | MHC.RECOVRN ---
Met with pt in treatment room on [facility] after consult placed to Addiction Medicine for pt interested in ATS. Pt had presented to the ED after cocaine and alcohol use x 2 years, pt also reported taking Benadryl to intentionally harm herself. Upon evaluation, pt admitted to [facility] for KEITH and depression with SI. Pt awake, alert, easily engages in conversation. Pt reports she has been using substances to medicate myself over the past 2 years. Pt believes if mental health is addressed, substances will not be used with amount and frequency she is currently using. Pt reports current alcohol use, half of a handle vodka daily x 1 month as well cocaine use, IN, 1.5 grams daily x 2 weeks. Pt reports 2 years ago being admitted to [facility]; pt found it helpful, however, returned to use shortly after discharge. Pt would like to focus on mental health prior to addressing KEITH. Pt provided with written information including ISAAC, CCC, CSS, harm reduction, as well as t/w contact information if needed. Pt denies questions or concerns, encouraged to reach out if she would like to discuss recovery further.
--- NOTE | 2023-12-06 15:43 | HO.PSYCHPN ---
Subjective Subjective Date of Service: 12/06/23 Reason For Visit: SI substance abuse Subjective Notes: Conditional Voluntary Interim History: Reviewed with Dr. Sinha. Pt reports feeling anxious today; c/o withdrawal symptoms, pt continues on CIWA. Pt stated, I drink because I get mad at situations I don't know how to control. I want to find another job but I can't because I'm busy working . denies SI/HI/VH/AH. Medication Compliance: Yes Side effects from medications: No Review of Systems Constitutional: Reports as per HPI Eyes: Reports as per HPI Reports as per HPI Cardiovascular: Reports as per HPI Respiratory: Reports as per HPI Gastrointestinal: Reports as per HPI Genitourinary: Reports as per HPI Musculoskeletal: Reports as per HPI Skin/Breast: Reports as per HPI Reports as per HPI Psychiatric: Reports as per HPI Endocrine: Reports as per HPI Hematologic/Lymphatic: Reports as per HPI Allergic/Immunologic: Reports as per HPI Mental Status Exam Mental Status Exam Narrative: Pt is alert and oriented; behavior is cooperative and calm; dressed in casual attire; mood is described as anxious ; eye contact appropriate; Speech is normal rate, volume and prosody and not pressured; thought process is organized; Thought content is on tx; otherwise pertinent to relevant topics and without any delusional content, paranoid ideations or grandiosity; denies SI/HI/VH/AH. Diagnostics Vital Signs (24Hr): Vital Signs - 24 hr 12/05/23 20:02 12/06/23 08:00 Temperature 97.8 F 97.6 F Pulse Rate 120 H 81 Respiratory Rate 18 16 Blood Pressure 112/76 121/65 Pulse Oximetry 98 97 Oxygen Delivery Method Room Air BMI result Body Mass Index 31.3 Labs 12/03/23 13:14 12/04/23 07:21 Medications Medications Current Medications Acetaminophen (Acetaminophen 325 Mg Tablet) 650 mg PO Q6H PRN PRN Reason: Headache/Pain Mild Scale (1-3) Last Admin: 12/05/23 09:26 Dose: 650 mg Al Hydroxide/Mg Hydroxide (Magnesium Hydrox/Alum Hydrox 30 Ml Oral.Susp) 30 ml PO Q6H PRN PRN Reason: Heartburn/Nausea Albuterol Sulfate (Albuterol Sulfate 90 Mcg 8 Gm Inhaler) 2 puff INHALE Q4H PRN PRN Reason: shortness of breath or wheezing Last Admin: 12/06/23 09:50 Dose: 2 puff Lamotrigine (Lamotrigine 25 Mg Tablet) 12.5 mg PO DAILY [facility] Last Admin: 12/06/23 09:56 Dose: 12.5 mg Lamotrigine (Lamotrigine 25 Mg Tablet) 25 mg PO BEDTIME [facility] Last Admin: 12/05/23 21:01 Dose: 25 mg Loratadine (Loratadine 10 Mg Tablet) 10 mg PO DAILY PRN PRN Reason: allergies Last Admin: 12/04/23 03:22 Dose: 10 mg Lorazepam (Lorazepam 1 Mg Tablet) 0 mg PO Q4H PRN PRN Reason: Alcohol Withdrawal Stop: 12/07/23 20:47 Last Admin: 12/06/23 13:08 Dose: 1 mg Lorazepam (Lorazepam 1 Mg Tablet) 1 mg PO Q4H PRN PRN Reason: Alcohol Withdrawal Last Admin: 12/05/23 21:01 Dose: 1 mg Lorazepam (Lorazepam 0.5 Mg Tablet) 0.5 mg PO Q4H PRN PRN Reason: Alcohol Withdrawal Magnesium Hydroxide (Milk Of Magnesia 30 Ml Oral.Susp) 30 ml PO DAILY PRN PRN Reason: Constipation Nicotine (Nicotine 14 Mg Patch.Td24) 14 mg TRANSDERMA DAILY [facility] Last Admin: 12/06/23 09:56 Dose: 14 mg Nicotine Polacrilex (Nicotine Polacrilex 2 Mg Gum) 2 mg BUCCAL Q1H PRN PRN Reason: Nicotine Cravings Last Admin: 12/06/23 13:07 Dose: 2 mg Quetiapine Fumarate (Quetiapine Fumarate 50 Mg Tablet) 50 mg PO BEDTIME MRX1 [facility] Last Admin: 12/05/23 21:26 Dose: 50 mg Quetiapine Fumarate (Quetiapine Fumarate 25 Mg Tablet) 25 mg PO Q6H PRN PRN Reason: anxiety Last Admin: 12/06/23 10:01 Dose: 25 mg Allergies Allergies Allergy/AdvReac Type Severity Reaction Status Date / Time shellfish derived AdvReac Swelling Verified 12/03/23 09:47 Assessment & Plan Assessment & Plan (1) Alcohol use: Status: Acute Code(s): Z78.9 - Other specified health status Assessment and Plan: monitoring and prn ativan- for etoh withdrawl may want to taper this quickly pt hoping to get in a program for sub use- (2) Cocaine use: Status: Acute Code(s): F14.90 - Cocaine use, unspecified, uncomplicated Assessment and Plan: cravings for cocaine- reported- (3) Depression with suicidal ideation: Status: Acute Code(s): F32.A - Depression, unspecified; R45.851 - Suicidal ideations Assessment and Plan: discussed starting lamotrigine and quetiapine 12/05/23 tolerating start of lamotrigine and quetiapine- pt doesn't seem put off by ? sleep eating- felt it overall helped Plan inc lamotrigine to 12.5mg in am and 25mg pm seroquel 50mg mr x1 instead of seroquel plus aterax 12/05: continue current tx plan. Patient educated on: diagnosis, medication risk/benefits and substance abuse Informed Consent: understands Reason for continued inpatient stay Substantial Risk for: med/psych decompensation Time Spent With Patient Time: Total time managing care of this patient today _20___ minutes.
[2023-12-06] MEDS: Acetaminophen 325 MG TABLET 650 MG PO (18:47)
[2023-12-06 19:40] VITALS: BP 118/63; PULSE 72; RESP 18; TEMP 36.4; O2SAT 100
[2023-12-06] MEDS: lamoTRIgine 25 MG TABLET PO (22:28)
[2023-12-06] MEDS: QUEtiapine Fumarate 50 MG TABLET PO ×2 (22:28→23:33)
[2023-12-06] MEDS: LORazepam 0.5 MG TABLET PO (22:28)
[2023-12-07 08:05] VITALS: BP 98/56; PULSE 85; RESP 16; TEMP 37.3; O2SAT 98
[2023-12-07] MEDS: lamoTRIgine 25 MG TABLET 12.5 MG PO (09:12)
[2023-12-07] MEDS: Albuterol Sulfate 90 MCG 8 GM INHALER 2 PUFF INHALE ×3 (09:14→21:15)
[2023-12-07] MEDS: QUEtiapine Fumarate 25 MG TABLET PO ×3 (09:15→22:03)
[2023-12-07] MEDS: Nicotine 14 MG PATCH.TD24 TRANSDERMA (09:16)
--- NOTE | 2023-12-07 11:31 | HO.PSYCHPN ---
Subjective Subjective Date of Service: 12/07/23 Reason For Visit: SI substance abuse Subjective Notes: Conditional Voluntary Healthcare Proxy: No Guardianship: No Medical Problems Affecting Mental Status: No Interim History: Pt reports detox is progressing. Discussed break in sobriety after her birthday, COVID. New job was going well, however pt slid back into previous habits, stating partner kept telling her she did not need help just to get herself back on track. Pt discussed mood sx she has been attempting to manage-lability, racing of thoughts (Father is bipolar she states). Lamictal and Seroquel were initiated. Discussed Vraylar as an option and will trial to assist with mood stabilization. Letter writted for pt for work. Medication Compliance: Yes Side effects from medications: No Attending Groups: Intermittent Review of Systems Acute medical concerns: No Medical Review of Systems: unchanged Review of Systems Review of Systems Yes all other systems are reviewed and are negative Mental Status Exam Mental Status Exam Patient Appearance: Fatigued Patient Orientation: Person, Place, Time and Situation Level of Consciousness: Alert Patient Behavior: Appropriate, Talkative, Cooperative, Anxious, Fearful, Distractible and Good Eye Contact Mood Description: Depressed and Apprehensive Affect Description: Flat and Apprehensive Patient Cognition Impaired: No Ability to Follow Directions: Good Speech Pattern: Clear, Appropriate, Spontaneous Speech, Coherent and Soft-Spoken Memory Description: Intact Hallucinations: None Delusions: Not Present Thought Process: Intact, Distracted and Rumination Thought Content: positive for Intact, positive for Circumstantial and positive for Logical Depressive Symptoms: Increased Anxiety and Increased Irritability Abnormal Motor Activity Signs and Symptoms: Restlessness Judgement: Fair Diagnostics Vital Signs (24Hr): Vital Signs - 24 hr 12/06/23 19:40 12/07/23 08:05 Temperature 97.6 F 99.2 F Pulse Rate 72 85 Respiratory Rate 18 16 Blood Pressure 118/63 98/56 L Pulse Oximetry 100 98 Oxygen Delivery Method Room Air Room Air BMI result Body Mass Index 31.3 Labs 12/03/23 13:14 12/04/23 07:21 Medications Medications Current Medications Acetaminophen (Acetaminophen 325 Mg Tablet) 650 mg PO Q6H PRN PRN Reason: Headache/Pain Mild Scale (1-3) Last Admin: 12/06/23 18:47 Dose: 650 mg Al Hydroxide/Mg Hydroxide (Magnesium Hydrox/Alum Hydrox 30 Ml Oral.Susp) 30 ml PO Q6H PRN PRN Reason: Heartburn/Nausea Albuterol Sulfate (Albuterol Sulfate 90 Mcg 8 Gm Inhaler) 2 puff INHALE Q4H PRN PRN Reason: shortness of breath or wheezing Last Admin: 12/07/23 09:14 Dose: 2 puff Lamotrigine (Lamotrigine 25 Mg Tablet) 12.5 mg PO DAILY [facility] Last Admin: 12/07/23 09:12 Dose: 12.5 mg Lamotrigine (Lamotrigine 25 Mg Tablet) 25 mg PO BEDTIME [facility] Last Admin: 12/06/23 22:28 Dose: 25 mg Loratadine (Loratadine 10 Mg Tablet) 10 mg PO DAILY PRN PRN Reason: allergies Last Admin: 12/04/23 03:22 Dose: 10 mg Lorazepam (Lorazepam 1 Mg Tablet) 1 mg PO Q4H PRN PRN Reason: CIWA 10-15 Lorazepam (Lorazepam 0.5 Mg Tablet) 0.5 mg PO Q4H PRN PRN Reason: CIWA 6-10 Magnesium Hydroxide (Milk Of Magnesia 30 Ml Oral.Susp) 30 ml PO DAILY PRN PRN Reason: Constipation Nicotine (Nicotine 14 Mg Patch.Td24) 14 mg TRANSDERMA DAILY [facility] Last Admin: 12/07/23 09:16 Dose: 14 mg Nicotine Polacrilex (Nicotine Polacrilex 2 Mg Gum) 2 mg BUCCAL Q1H PRN PRN Reason: Nicotine Cravings Last Admin: 12/06/23 13:07 Dose: 2 mg Quetiapine Fumarate (Quetiapine Fumarate 50 Mg Tablet) 50 mg PO BEDTIME MRX1 [facility] Last Admin: 12/06/23 23:33 Dose: 50 mg Quetiapine Fumarate (Quetiapine Fumarate 25 Mg Tablet) 25 mg PO Q6H PRN PRN Reason: anxiety Last Admin: 12/07/23 09:15 Dose: 25 mg Allergies Allergies Allergy/AdvReac Type Severity Reaction Status Date / Time shellfish derived AdvReac Swelling Verified 12/03/23 09:47 Assessment & Plan Assessment & Plan (1) Alcohol use: Status: Acute Code(s): Z78.9 - Other specified health status Assessment and Plan: monitoring and prn ativan- for etoh withdrawl may want to taper this quickly pt hoping to get in a program for sub use- (2) Cocaine use: Status: Acute Code(s): F14.90 - Cocaine use, unspecified, uncomplicated Assessment and Plan: cravings for cocaine- reported- (3) Depression with suicidal ideation: Status: Acute Code(s): F32.A - Depression, unspecified; R45.851 - Suicidal ideations Assessment and Plan: discussed starting lamotrigine and quetiapine 12/05/23 tolerating start of lamotrigine and quetiapine- pt doesn't seem put off by ? sleep eating- felt it overall helped Plan inc lamotrigine to 12.5mg in am and 25mg pm seroquel 50mg mr x1 instead of seroquel plus aterax 12/05: continue current tx plan. 12/06: Vraylar 3 mg a.m. Continue Lamictal/Seroquel Letter written for pt's employer Pt interested in out pt options for ongoing treatment. Patient educated on: medication risk/benefits and therapeutic strategies Informed Consent: understands and further education needed Reason for continued inpatient stay Substantial Risk for: rapid decompensation Time Spent With Patient Time: Total time managing care of this patient today ____ minutes.
[2023-12-07] MEDS: LORazepam 0.5 MG TABLET PO (13:35)
[2023-12-07] MEDS: Acetaminophen 325 MG TABLET 650 MG PO (14:34)
[2023-12-07] MEDS: LORazepam 1 MG TABLET PO (17:22)
[2023-12-07 18:00] VITALS: BP 131/83; PULSE 86; RESP 16; TEMP 36.6; O2SAT 98
[2023-12-07] MEDS: QUEtiapine Fumarate 50 MG TABLET PO ×2 (20:48→23:29)
[2023-12-07] MEDS: lamoTRIgine 25 MG TABLET PO (20:48)
[2023-12-08 08:30] VITALS: BP 133/78; PULSE 78; RESP 18; TEMP 36.8; O2SAT 97
[2023-12-08] MEDS: Cariprazine HCl 3 MG CAPSULE PO (08:31)
[2023-12-08] MEDS: lamoTRIgine 25 MG TABLET 12.5 MG PO (08:31)
[2023-12-08] MEDS: Nicotine 14 MG PATCH.TD24 TRANSDERMA (08:33)
[2023-12-08] MEDS: QUEtiapine Fumarate 25 MG TABLET PO (08:36)
[2023-12-08] MEDS: Albuterol Sulfate 90 MCG 8 GM INHALER 2 PUFF INHALE ×3 (09:06→19:54)
--- NOTE | 2023-12-08 15:42 | HO.PSYCHPN ---
Subjective Subjective Date of Service: 12/09/23 Reason For Visit: SI substance abuse Subjective Notes: Conditional Voluntary Healthcare Proxy: No Guardianship: No Medical Problems Affecting Mental Status: No Interim History: Met with pt and her father, Curtis Antoine [phone] Pt plans to live with father upon discharge. He is a strong support. Discussed aftercare planning. Father discussed pt needing a strong out patient treatment team to assist her in support of sobriety. He is available to be supportive but requests pt have a treatment team identified prior to discharge that she may turn to as needed and that he may take direction from to support pt properly. Pt expressed her gratitude for father's assistance and support. Discussed tentative discharge planning for early next week. Tolerating Vraylar thus far. Sx of anxiety/depression remain high. Medication Compliance: Yes Side effects from medications: No Attending Groups: Intermittent Review of Systems Acute medical concerns: No Medical Review of Systems: unchanged Review of Systems Review of Systems Yes all other systems are reviewed and are negative Mental Status Exam Mental Status Exam Patient Appearance: Fatigued Patient Orientation: Person, Place, Time and Situation Level of Consciousness: Alert Patient Behavior: Appropriate, Talkative, Cooperative, Anxious, Fearful, Distractible and Good Eye Contact Mood Description: Depressed and Apprehensive Affect Description: Flat and Apprehensive Patient Cognition Impaired: No Ability to Follow Directions: Good Speech Pattern: Clear, Appropriate, Spontaneous Speech, Coherent and Soft-Spoken Memory Description: Intact Hallucinations: None Delusions: Not Present Thought Process: Intact, Distracted and Rumination Thought Content: positive for Intact, positive for Circumstantial and positive for Logical Depressive Symptoms: Increased Anxiety and Increased Irritability Abnormal Motor Activity Signs and Symptoms: Restlessness Judgement: Fair Diagnostics Vital Signs (24Hr): Vital Signs - 24 hr 12/07/23 18:00 12/08/23 08:30 Temperature 97.9 F 98.2 F Pulse Rate 86 78 Respiratory Rate 16 18 Blood Pressure 131/83 133/78 Pulse Oximetry 98 97 Oxygen Delivery Method Room Air Room Air BMI result Body Mass Index 31.3 Labs 12/03/23 13:14 12/04/23 07:21 Medications Medications Current Medications Acetaminophen (Acetaminophen 325 Mg Tablet) 650 mg PO Q6H PRN PRN Reason: Headache/Pain Mild Scale (1-3) Last Admin: 12/07/23 14:34 Dose: 650 mg Al Hydroxide/Mg Hydroxide (Magnesium Hydrox/Alum Hydrox 30 Ml Oral.Susp) 30 ml PO Q6H PRN PRN Reason: Heartburn/Nausea Albuterol Sulfate (Albuterol Sulfate 90 Mcg 8 Gm Inhaler) 2 puff INHALE Q4H PRN PRN Reason: shortness of breath or wheezing Last Admin: 12/08/23 15:17 Dose: 2 puff Cariprazine (Cariprazine Hcl 3 Mg Capsule) 3 mg PO DAILY [facility] Last Admin: 12/08/23 08:31 Dose: 3 mg Lamotrigine (Lamotrigine 25 Mg Tablet) 12.5 mg PO DAILY [facility] Last Admin: 12/08/23 08:31 Dose: 12.5 mg Lamotrigine (Lamotrigine 25 Mg Tablet) 25 mg PO BEDTIME [facility] Last Admin: 12/07/23 20:48 Dose: 25 mg Loratadine (Loratadine 10 Mg Tablet) 10 mg PO DAILY PRN PRN Reason: allergies Last Admin: 12/04/23 03:22 Dose: 10 mg Lorazepam (Lorazepam 1 Mg Tablet) 1 mg PO Q4H PRN PRN Reason: CIWA 10-15 Last Admin: 12/07/23 17:22 Dose: 1 mg Lorazepam (Lorazepam 0.5 Mg Tablet) 0.5 mg PO Q4H PRN PRN Reason: CIWA 6-10 Last Admin: 12/07/23 13:35 Dose: 0.5 mg Magnesium Hydroxide (Milk Of Magnesia 30 Ml Oral.Susp) 30 ml PO DAILY PRN PRN Reason: Constipation Nicotine (Nicotine 14 Mg Patch.Td24) 14 mg TRANSDERMA DAILY [facility] Last Admin: 12/08/23 08:33 Dose: 14 mg Nicotine Polacrilex (Nicotine Polacrilex 2 Mg Gum) 2 mg BUCCAL Q1H PRN PRN Reason: Nicotine Cravings Last Admin: 12/06/23 13:07 Dose: 2 mg Quetiapine Fumarate (Quetiapine Fumarate 100 Mg Tablet) 100 mg PO BEDTIME [facility] Quetiapine Fumarate (Quetiapine Fumarate 50 Mg Tablet) 50 mg PO Q4H PRN PRN Reason: anxiety Allergies Allergies Allergy/AdvReac Type Severity Reaction Status Date / Time shellfish derived AdvReac Swelling Verified 12/03/23 09:47 Assessment & Plan Assessment & Plan (1) Alcohol use: Status: Acute Code(s): Z78.9 - Other specified health status Assessment and Plan: monitoring and prn ativan- for etoh withdrawl may want to taper this quickly pt hoping to get in a program for sub use- (2) Cocaine use: Status: Acute Code(s): F14.90 - Cocaine use, unspecified, uncomplicated Assessment and Plan: cravings for cocaine- reported- (3) Depression with suicidal ideation: Status: Acute Code(s): F32.A - Depression, unspecified; R45.851 - Suicidal ideations Assessment and Plan: discussed starting lamotrigine and quetiapine 12/05/23 tolerating start of lamotrigine and quetiapine- pt doesn't seem put off by ? sleep eating- felt it overall helped Plan inc lamotrigine to 12.5mg in am and 25mg pm seroquel 50mg mr x1 instead of seroquel plus aterax 12/05: continue current tx plan. 12/06: Vraylar 3 mg a.m. Continue Lamictal/Seroquel Letter written for pt's employer Pt interested in out pt options for ongoing treatment. 12/08/23: Increase Seroquel prn and HS dosing to target anxiety, sleep. Patient educated on: medication risk/benefits and therapeutic strategies Guardian/Caregiver educated on: medication risk/benefits and therapeutic strategies Informed Consent: understands and further education needed Reason for continued inpatient stay Substantial Risk for: rapid decompensation Time Spent With Patient Time: Total time managing care of this patient today ____ minutes.
[2023-12-08 16:37] VITALS: BP 114/71; PULSE 100; RESP 18; TEMP 36.9; O2SAT 100
[2023-12-08] MEDS: Acetaminophen 325 MG TABLET 650 MG PO (19:32)
[2023-12-08] MEDS: QUEtiapine Fumarate 100 MG TABLET PO ×2 (19:52→20:13)
[2023-12-08] MEDS: lamoTRIgine 25 MG TABLET PO (19:52)
[2023-12-09 08:35] VITALS: BP 118/78; PULSE 101; RESP 18; TEMP 36.7; O2SAT 98
[2023-12-09] MEDS: Cariprazine HCl 3 MG CAPSULE PO (08:51)
[2023-12-09] MEDS: lamoTRIgine 25 MG TABLET 12.5 MG PO (08:51)
[2023-12-09] MEDS: Albuterol Sulfate 90 MCG 8 GM INHALER 2 PUFF INHALE ×2 (09:07→16:20)
[2023-12-09] MEDS: Acetaminophen 325 MG TABLET 650 MG PO (11:42)
[2023-12-09 11:58] VITALS: BMI 32.4
--- NOTE | 2023-12-09 15:07 | HO.PSYCHPN ---
Subjective Subjective Date of Service: 12/09/23 Reason For Visit: SI substance abuse Subjective Notes: Conditional Voluntary Healthcare Proxy: No Guardianship: No Medical Problems Affecting Mental Status: No Interim History: Reports improvement. Review of meds-pt would prefer not to use Seroquel. Discussed Remeron trial and she agrees, will begin this evening. Will leave Seroquel prn in case she needs this during transition. Today discussed what triggers are in her life that prompt breaks in sobriety. Discussed, at age 33, not wanting to continue patterns that do not promote wellness. She discussed possibly needing to end her relationship if partner can not make changes along with her. Medication Compliance: Yes Side effects from medications: Yes (Finds seroquel too sedating) Attending Groups: Intermittent Review of Systems Acute medical concerns: No Medical Review of Systems: unchanged Review of Systems Review of Systems Yes all other systems are reviewed and are negative (denies) Mental Status Exam Mental Status Exam Patient Appearance: Appropriate Patient Orientation: Person, Place, Time and Situation Level of Consciousness: Alert Patient Behavior: Talkative and Good Eye Contact Mood Description: Calm Affect Description: Calm Patient Cognition Impaired: No Ability to Follow Directions: Good Speech Pattern: Spontaneous Speech Memory Description: Intact Hallucinations: None Delusions: Not Present Thought Process: Rumination Thought Content: positive for Perseveration Depressive Symptoms: Increased Anxiety Judgement: Good Diagnostics Vital Signs (24Hr): Vital Signs - 24 hr 12/08/23 16:37 12/09/23 08:35 Temperature 98.5 F 98.1 F Pulse Rate 100 101 H Respiratory Rate 18 18 Blood Pressure 114/71 118/78 Pulse Oximetry 100 98 Oxygen Delivery Method Room Air Room Air BMI result Body Mass Index 32.4 Labs 12/03/23 13:14 12/04/23 07:21 Medications Medications Current Medications Acetaminophen (Acetaminophen 325 Mg Tablet) 650 mg PO Q6H PRN PRN Reason: Headache/Pain Mild Scale (1-3) Last Admin: 12/09/23 11:42 Dose: 650 mg Al Hydroxide/Mg Hydroxide (Magnesium Hydrox/Alum Hydrox 30 Ml Oral.Susp) 30 ml PO Q6H PRN PRN Reason: Heartburn/Nausea Albuterol Sulfate (Albuterol Sulfate 90 Mcg 8 Gm Inhaler) 2 puff INHALE Q4H PRN PRN Reason: shortness of breath or wheezing Last Admin: 12/09/23 09:07 Dose: 2 puff Cariprazine (Cariprazine Hcl 1.5 Mg Capsule) 1.5 mg PO DAILY [facility] Lamotrigine (Lamotrigine 25 Mg Tablet) 12.5 mg PO DAILY [facility] Last Admin: 12/09/23 08:51 Dose: 12.5 mg Lamotrigine (Lamotrigine 25 Mg Tablet) 25 mg PO BEDTIME [facility] Last Admin: 12/08/23 19:52 Dose: 25 mg Loratadine (Loratadine 10 Mg Tablet) 10 mg PO DAILY PRN PRN Reason: allergies Last Admin: 12/04/23 03:22 Dose: 10 mg Lorazepam (Lorazepam 1 Mg Tablet) 1 mg PO Q4H PRN PRN Reason: CIWA 10-15 Last Admin: 12/07/23 17:22 Dose: 1 mg Lorazepam (Lorazepam 0.5 Mg Tablet) 0.5 mg PO Q4H PRN PRN Reason: CIWA 6-10 Last Admin: 12/07/23 13:35 Dose: 0.5 mg Magnesium Hydroxide (Milk Of Magnesia 30 Ml Oral.Susp) 30 ml PO DAILY PRN PRN Reason: Constipation Nicotine (Nicotine 14 Mg Patch.Td24) 14 mg TRANSDERMA DAILY [facility] Last Admin: 12/09/23 09:42 Dose: Not Given Nicotine Polacrilex (Nicotine Polacrilex 2 Mg Gum) 2 mg BUCCAL Q1H PRN PRN Reason: Nicotine Cravings Last Admin: 12/06/23 13:07 Dose: 2 mg Quetiapine Fumarate (Quetiapine Fumarate 100 Mg Tablet) 100 mg PO BEDTIME MRX1 [facility] Last Admin: 12/08/23 20:13 Dose: 100 mg Quetiapine Fumarate (Quetiapine Fumarate 50 Mg Tablet) 50 mg PO Q4H PRN PRN Reason: anxiety Allergies Allergies Allergy/AdvReac Type Severity Reaction Status Date / Time shellfish derived AdvReac Swelling Verified 12/03/23 09:47 Assessment & Plan Assessment & Plan (1) Alcohol use: Status: Acute Code(s): Z78.9 - Other specified health status Assessment and Plan: monitoring and prn ativan- for etoh withdrawl may want to taper this quickly pt hoping to get in a program for sub use- (2) Cocaine use: Status: Acute Code(s): F14.90 - Cocaine use, unspecified, uncomplicated Assessment and Plan: cravings for cocaine- reported- (3) Depression with suicidal ideation: Status: Acute Code(s): F32.A - Depression, unspecified; R45.851 - Suicidal ideations Assessment and Plan: discussed starting lamotrigine and quetiapine 12/05/23 tolerating start of lamotrigine and quetiapine- pt doesn't seem put off by ? sleep eating- felt it overall helped Plan inc lamotrigine to 12.5mg in am and 25mg pm seroquel 50mg mr x1 instead of seroquel plus aterax 12/05: continue current tx plan. 12/06: Vraylar 3 mg a.m. Continue Lamictal/Seroquel Letter written for pt's employer Pt interested in out pt options for ongoing treatment. 12/09/23: Discontinue HS Seroquel, Continue prn Seroquel Remeron 7.5 mg hs Decrease Vraylar to 1.5 mg daily Patient educated on: medication risk/benefits Informed Consent: understands and further education needed Reason for continued inpatient stay Substantial Risk for: rapid decompensation Time Spent With Patient Time: Total time managing care of this patient today ____ minutes.
[2023-12-09 18:00] VITALS: BP 127/78; PULSE 85; TEMP 36.8; O2SAT 100
[2023-12-09] MEDS: lamoTRIgine 25 MG TABLET PO (21:32)
[2023-12-09] MEDS: Mirtazapine 7.5 MG TABLET PO (21:32)
[2023-12-10] MEDS: Magnesium Hydrox/Alum Hydrox 30 ML ORAL.SUSP PO (02:14)
[2023-12-10] MEDS: QUEtiapine Fumarate 50 MG TABLET PO ×3 (02:46→14:17)
[2023-12-10] MEDS: Albuterol Sulfate 90 MCG 8 GM INHALER 2 PUFF INHALE ×3 (02:46→18:11)
[2023-12-10 07:45] VITALS: BP 125/76; PULSE 100; TEMP 37; O2SAT 97
[2023-12-10] MEDS: lamoTRIgine 25 MG TABLET 12.5 MG PO (08:49)
[2023-12-10] MEDS: Cariprazine HCl 1.5 MG CAPSULE PO (08:49)
[2023-12-10] MEDS: Milk of Magnesia 30 ML ORAL.SUSP PO (08:54)
--- NOTE | 2023-12-10 14:43 | HO.PSYCHPN ---
Subjective Subjective Date of Service: 12/10/23 Reason For Visit: SI substance abuse Subjective Notes: Conditional Voluntary Healthcare Proxy: No Guardianship: No Medical Problems Affecting Mental Status: No Interim History: Pt tolerating Mirtazapine, will increase to 15 mg this evening. Discharge planning for 12/12/23. Pt will attend OP and has a request in for PHP. Medication Compliance: Yes Side effects from medications: No Attending Groups: Intermittent Review of Systems Acute medical concerns: No Medical Review of Systems: unchanged Review of Systems Review of Systems Yes all other systems are reviewed and are negative Mental Status Exam Mental Status Exam Patient Appearance: Appropriate Patient Orientation: Person, Place, Time and Situation Level of Consciousness: Alert Patient Behavior: Talkative and Good Eye Contact Mood Description: Calm Affect Description: Calm Patient Cognition Impaired: No Ability to Follow Directions: Good Speech Pattern: Spontaneous Speech Memory Description: Intact Hallucinations: None Delusions: Not Present Thought Process: Rumination Thought Content: positive for Perseveration Depressive Symptoms: Increased Anxiety Judgement: Good Diagnostics Vital Signs (24Hr): Vital Signs - 24 hr 12/09/23 18:00 12/10/23 07:45 Temperature 98.2 F 98.6 F Pulse Rate 85 100 Blood Pressure 127/78 125/76 Pulse Oximetry 100 97 Oxygen Delivery Method Room Air Room Air BMI result Body Mass Index 32.4 Labs 12/03/23 13:14 12/04/23 07:21 Medications Medications Current Medications Acetaminophen (Acetaminophen 325 Mg Tablet) 650 mg PO Q6H PRN PRN Reason: Headache/Pain Mild Scale (1-3) Last Admin: 12/09/23 11:42 Dose: 650 mg Al Hydroxide/Mg Hydroxide (Magnesium Hydrox/Alum Hydrox 30 Ml Oral.Susp) 30 ml PO Q6H PRN PRN Reason: Heartburn/Nausea Last Admin: 12/10/23 02:14 Dose: 30 ml Albuterol Sulfate (Albuterol Sulfate 90 Mcg 8 Gm Inhaler) 2 puff INHALE Q4H PRN PRN Reason: shortness of breath or wheezing Last Admin: 12/10/23 08:49 Dose: 2 puff Cariprazine (Cariprazine Hcl 1.5 Mg Capsule) 1.5 mg PO DAILY [facility] Last Admin: 12/10/23 08:49 Dose: 1.5 mg Lamotrigine (Lamotrigine 25 Mg Tablet) 12.5 mg PO DAILY [facility] Last Admin: 12/10/23 08:49 Dose: 12.5 mg Lamotrigine (Lamotrigine 25 Mg Tablet) 25 mg PO BEDTIME [facility] Last Admin: 12/09/23 21:32 Dose: 25 mg Loratadine (Loratadine 10 Mg Tablet) 10 mg PO DAILY PRN PRN Reason: allergies Last Admin: 12/04/23 03:22 Dose: 10 mg Lorazepam (Lorazepam 1 Mg Tablet) 1 mg PO Q4H PRN PRN Reason: CIWA 10-15 Last Admin: 12/07/23 17:22 Dose: 1 mg Lorazepam (Lorazepam 0.5 Mg Tablet) 0.5 mg PO Q4H PRN PRN Reason: CIWA 6-10 Last Admin: 12/07/23 13:35 Dose: 0.5 mg Magnesium Hydroxide (Milk Of Magnesia 30 Ml Oral.Susp) 30 ml PO DAILY PRN PRN Reason: Constipation Last Admin: 12/10/23 08:54 Dose: 30 ml Mirtazapine (Mirtazapine 7.5 Mg Tablet) 7.5 mg PO BEDTIME [facility] Last Admin: 12/09/23 21:32 Dose: 7.5 mg Nicotine (Nicotine 14 Mg Patch.Td24) 14 mg TRANSDERMA DAILY [facility] Last Admin: 12/10/23 13:15 Dose: Not Given Nicotine Polacrilex (Nicotine Polacrilex 2 Mg Gum) 2 mg BUCCAL Q1H PRN PRN Reason: Nicotine Cravings Last Admin: 12/06/23 13:07 Dose: 2 mg Quetiapine Fumarate (Quetiapine Fumarate 50 Mg Tablet) 50 mg PO Q4H PRN PRN Reason: anxiety Last Admin: 12/10/23 14:17 Dose: 50 mg Allergies Allergies Allergy/AdvReac Type Severity Reaction Status Date / Time shellfish derived AdvReac Swelling Verified 12/03/23 09:47 Assessment & Plan Assessment & Plan (1) Alcohol use: Status: Acute Code(s): Z78.9 - Other specified health status Assessment and Plan: monitoring and prn ativan- for etoh withdrawl may want to taper this quickly pt hoping to get in a program for sub use- (2) Cocaine use: Status: Acute Code(s): F14.90 - Cocaine use, unspecified, uncomplicated Assessment and Plan: cravings for cocaine- reported- (3) Depression with suicidal ideation: Status: Acute Code(s): F32.A - Depression, unspecified; R45.851 - Suicidal ideations Assessment and Plan: discussed starting lamotrigine and quetiapine 12/05/23 tolerating start of lamotrigine and quetiapine- pt doesn't seem put off by ? sleep eating- felt it overall helped Plan inc lamotrigine to 12.5mg in am and 25mg pm seroquel 50mg mr x1 instead of seroquel plus aterax 12/05: continue current tx plan. 12/06: Vraylar 3 mg a.m. Continue Lamictal/Seroquel Letter written for pt's employer Pt interested in out pt options for ongoing treatment. 12/09/23: Discontinue HS Seroquel, Continue prn Seroquel Remeron 7.5 mg hs Decrease Vraylar to 1.5 mg daily 12/10/23: Increase Mirtazapine to 15 mg HS. Patient educated on: medication risk/benefits and therapeutic strategies Informed Consent: understands Reason for continued inpatient stay Substantial Risk for: stable for discharge and rapid decompensation Time Spent With Patient Time: Total time managing care of this patient today ____ minutes.
[2023-12-10 19:40] VITALS: BP 128/78; PULSE 68; RESP 18; TEMP 36.6; O2SAT 97
[2023-12-10] MEDS: Mirtazapine 15 MG TABLET PO (20:20)
[2023-12-10] MEDS: lamoTRIgine 25 MG TABLET PO (20:20)
[2023-12-11 08:13] VITALS: BP 138/67; PULSE 93; RESP 16; TEMP 36.9; O2SAT 98
[2023-12-11] MEDS: lamoTRIgine 25 MG TABLET 12.5 MG PO (08:46)
[2023-12-11] MEDS: Cariprazine HCl 1.5 MG CAPSULE PO (08:47)
[2023-12-11] MEDS: Albuterol Sulfate 90 MCG 8 GM INHALER 2 PUFF INHALE ×3 (08:58→17:59)
--- NOTE | 2023-12-11 12:41 | HO.PSYCHPN ---
Subjective Subjective Date of Service: 12/11/23 Reason For Visit: SI substance abuse Subjective Notes: Conditional Voluntary Healthcare Proxy: No Guardianship: No Medical Problems Affecting Mental Status: No Interim History: Pt preparing for discharge. Understands aftercare planning. Looking forward to living with her father and added support for ongoing sobriety. Hopes to find a job she enjoys as well. Medication Compliance: Yes Side effects from medications: No Attending Groups: Yes Review of Systems Acute medical concerns: No Medical Review of Systems: unchanged Review of Systems Review of Systems Yes all other systems are reviewed and are negative Mental Status Exam Mental Status Exam Patient Appearance: Appropriate Patient Orientation: Person, Place, Time and Situation Level of Consciousness: Alert Patient Behavior: Talkative and Good Eye Contact Mood Description: Calm Affect Description: Calm Patient Cognition Impaired: No Ability to Follow Directions: Good Speech Pattern: Spontaneous Speech Memory Description: Intact Hallucinations: None Delusions: Not Present Thought Process: Rumination Thought Content: positive for Perseveration Depressive Symptoms: Increased Anxiety Judgement: Good Diagnostics Vital Signs (24Hr): Vital Signs - 24 hr 12/10/23 19:40 12/11/23 08:13 Temperature 97.8 F 98.4 F Pulse Rate 68 93 Respiratory Rate 18 16 Blood Pressure 128/78 138/67 Pulse Oximetry 97 98 Oxygen Delivery Method Room Air Room Air BMI result Body Mass Index 32.4 Labs 12/03/23 13:14 12/04/23 07:21 Medications Medications Current Medications Acetaminophen (Acetaminophen 325 Mg Tablet) 650 mg PO Q6H PRN PRN Reason: Headache/Pain Mild Scale (1-3) Last Admin: 12/09/23 11:42 Dose: 650 mg Al Hydroxide/Mg Hydroxide (Magnesium Hydrox/Alum Hydrox 30 Ml Oral.Susp) 30 ml PO Q6H PRN PRN Reason: Heartburn/Nausea Last Admin: 12/10/23 02:14 Dose: 30 ml Albuterol Sulfate (Albuterol Sulfate 90 Mcg 8 Gm Inhaler) 2 puff INHALE Q4H PRN PRN Reason: shortness of breath or wheezing Last Admin: 12/11/23 08:58 Dose: 2 puff Cariprazine (Cariprazine Hcl 1.5 Mg Capsule) 1.5 mg PO DAILY [facility] Last Admin: 12/11/23 08:47 Dose: 1.5 mg Lamotrigine (Lamotrigine 25 Mg Tablet) 12.5 mg PO DAILY [facility] Last Admin: 12/11/23 08:46 Dose: 12.5 mg Lamotrigine (Lamotrigine 25 Mg Tablet) 25 mg PO BEDTIME [facility] Last Admin: 12/10/23 20:20 Dose: 25 mg Loratadine (Loratadine 10 Mg Tablet) 10 mg PO DAILY PRN PRN Reason: allergies Last Admin: 12/04/23 03:22 Dose: 10 mg Magnesium Hydroxide (Milk Of Magnesia 30 Ml Oral.Susp) 30 ml PO DAILY PRN PRN Reason: Constipation Last Admin: 12/10/23 08:54 Dose: 30 ml Mirtazapine (Mirtazapine 15 Mg Tablet) 15 mg PO BEDTIME [facility] Last Admin: 12/10/23 20:20 Dose: 15 mg Nicotine (Nicotine 14 Mg Patch.Td24) 14 mg TRANSDERMA DAILY [facility] Last Admin: 12/11/23 08:54 Dose: Not Given Nicotine Polacrilex (Nicotine Polacrilex 2 Mg Gum) 2 mg BUCCAL Q1H PRN PRN Reason: Nicotine Cravings Last Admin: 12/06/23 13:07 Dose: 2 mg Quetiapine Fumarate (Quetiapine Fumarate 50 Mg Tablet) 50 mg PO Q4H PRN PRN Reason: anxiety Last Admin: 12/10/23 14:17 Dose: 50 mg Allergies Allergies Allergy/AdvReac Type Severity Reaction Status Date / Time shellfish derived AdvReac Swelling Verified 12/03/23 09:47 Assessment & Plan Assessment & Plan (1) Alcohol use: Status: Acute Code(s): Z78.9 - Other specified health status Assessment and Plan: monitoring and prn ativan- for etoh withdrawl may want to taper this quickly pt hoping to get in a program for sub use- (2) Cocaine use: Status: Acute Code(s): F14.90 - Cocaine use, unspecified, uncomplicated Assessment and Plan: cravings for cocaine- reported- (3) Depression with suicidal ideation: Status: Acute Code(s): F32.A - Depression, unspecified; R45.851 - Suicidal ideations Assessment and Plan: discussed starting lamotrigine and quetiapine 12/05/23 tolerating start of lamotrigine and quetiapine- pt doesn't seem put off by ? sleep eating- felt it overall helped Plan inc lamotrigine to 12.5mg in am and 25mg pm seroquel 50mg mr x1 instead of seroquel plus aterax 12/05: continue current tx plan. 12/06: Vraylar 3 mg a.m. Continue Lamictal/Seroquel Letter written for pt's employer Pt interested in out pt options for ongoing treatment. 12/09/23: Discontinue HS Seroquel, Continue prn Seroquel Remeron 7.5 mg hs Decrease Vraylar to 1.5 mg daily 12/10/23: Increase Mirtazapine to 15 mg HS. 12/11/23: Discharge 12/11. Patient educated on: therapeutic strategies Informed Consent: understands Reason for continued inpatient stay Substantial Risk for: rapid decompensation Time Spent With Patient Time: Total time managing care of this patient today ____ minutes.
[2023-12-11 18:00] VITALS: BP 138/78; PULSE 71; RESP 18; TEMP 36.8; O2SAT 100
[2023-12-11] MEDS: lamoTRIgine 25 MG TABLET PO (20:49)
[2023-12-11] MEDS: Mirtazapine 15 MG TABLET PO (20:50)
--- NOTE | 2023-12-12 05:49 | P.DS_ITS ---
DS: Providers Provider Date of Service: 12/12/23 Date of admission: 12/03/23 20:48 Date of discharge: 12/12/23 Primary care physician: Unknown Physician Admitting clinician: Lizzie John Attending physician on admission: Lizzie John Consults: 12/03/23 16:06 Addiction Medicine Routine Consulting Provider: Addiction Covering Reason for consultation: Cocaine binge x3 days, daily EtOH use requesting detox Has provider been notified: No 12/04/23 01:00 Addiction Medicine Routine Consulting Provider: Addiction Covering Reason for consultation: Daily ETOH use requesting detox Attending physician on discharge: Raymond Sinha Discharging clinician: Jenny See DS: Diagnosis Discharge Diagnosis (1) Alcohol use: Status: Acute (2) Cocaine use: Status: Acute (3) Depression with suicidal ideation: Status: Acute DS: Medications Discharge Medications Home Medications: Previous Rx's ?Medication ?Instructions ?Recorded albuterol sulfate 90 mcg/actuation 2 puff inhalation Q4-6H PRN 12/11/23 aerosol inhaler shortness of breath or wheezing #8.5 grams cariprazine 1.5 mg capsule 1.5 mg PO DAILY #30 caps 12/11/23 (Vraylar) lamotrigine 25 mg tablet 12.5 mg (1/2 x 25 mg) PO DAILY #15 12/11/23 tabs lamotrigine 25 mg tablet 25 mg PO BEDTIME #30 tabs 12/11/23 loratadine 10 mg tablet 10 mg PO DAILY PRN allergies 30 12/11/23 days #30 tabs mirtazapine 15 mg tablet 15 mg PO BEDTIME #30 tabs 12/11/23 Mental Status Exam Mental Status Exam Patient Appearance: Appropriate Patient Orientation: Person, Place, Time and Situation Level of Consciousness: Alert Patient Behavior: Talkative and Good Eye Contact Mood Description: Calm Affect Description: Calm Patient Cognition Impaired: No Ability to Follow Directions: Good Speech Pattern: Spontaneous Speech Memory Description: Intact Hallucinations: None Delusions: Not Present Thought Process: Rumination Thought Content: positive for Perseveration Depressive Symptoms: Increased Anxiety Judgement: Good DS: Summary Hospital Course Hospital Course: Admission to adult psychiatry for exacerbation of depression with SI, cocaine use and alcohol use. Medications were evaluated and adjusted. Lamictal, Mirtazapine, and Vraylar were initiated. Topiramate was continued. Mehnaz will attend [facility] PHP program and begin out patient therapy and medication mgt with [facility] upon discharge. Status at Discharge Functional status at discharge: independent ambulation Overall status at discharge: patient is progressing back to baseline Time Spent with Patient Time attestation: Total time managing care of this patient today ____ minutes. Time spent: Less than 30 minutes Discharge Plan Discharge Anticipated Discharge Date/Time: 12/12/23 12:00 Patient Disposition: Home, Self-Care Discharge Diagnosis: Recurrent Major Depression Alcohol Use Disorder Cocaine Use Disorder Referrals: [facility] Partial Hospitalization Program (PHP) [Other] - 1 Week (Referral to [facility] program [facility] will follow-up with you on Wednesday12/13/23 after discharge to provide appointment for intake. If you do not hear from them please call them at [phone].) [facility] Counseling: Nay Drew (therapy intake) [Other] - 12/15/23 10:00 am (Hospital Discharge Appointment Initial Diagnostic evaluation for Therapy Appointment is in office at [facility] [place] [facility] Counseling: Juliet Fu (psychiatry) [Other] - 01/17/24 1:00 pm (Hospital discharge appointment Initial evaluation for psychiatric medication management Appointment is by tele-health check you email for a link to the appointment If there are any issues please call [facility] for support with appointment.) [facility] Counseling: Juliet Fu (psychiatry) [Other] - 02/16/24 11:00 am (Hospital discharge appointment Medication management appointment with psychiatric medication provider Appointment is by tele-health please check your email for a link to the appointment Should you have any issues please call [facility] for support at [phone]) [facility] [Primary Care Provider] - 1 Week Discharge Medications: New Vraylar 1.5 mg Capsule 1.5 mg PO DAILY Qty: 30 0RF lamotrigine 25 mg Tablet 25 mg PO BEDTIME Qty: 30 0RF lamotrigine 25 mg Tablet 12.5 mg PO DAILY Qty: 15 0RF mirtazapine 15 mg Tablet 15 mg PO BEDTIME Qty: 30 0RF Continued albuterol sulfate 90 mcg/actuation HFA aerosol inhaler 2 puff inhalation Q4-6H PRN (Reason: shortness of breath or wheezing) Qty: 8.5 0RF loratadine 10 mg tablet 10 mg PO DAILY PRN (Reason: allergies) 30 Days Qty: 30 0RF No Action topiramate 25 mg tablet 25 mg PO BID Qty: 30 0RF Discharge Orders: Discharge Order (Routine); Ordered 12/12/23 Ordered By: Jenny See Diet: Advance to usual diet Activity on Discharge: As tolerated Stand Alone Forms: Patient Portal Discharge page, Community Support Print Language: Peruvian Care Plan Goals: Mood and Behavioral Stabilization Work on Sobriety Health Concerns: Mood and Behavioral Stabilization Work on Sobriety Plan of Treatment: Attend scheduled appointments Take medications as directed Work on Sobriety Assessment: Pt interviewed prior to discharge and found to be fully oriented and without SI/HI. Pt has insight and demonstrates good judgment in terms of wanting to pursue treatment. Pt is not in imminent risk of harm to self or others and has a safety plan that includes presenting to the closest ER or calling 911 if feeling unsafe. Pt has been observed closely by nursing and unit staff throughout admission. Pt has not engaged in any behaviors that suggest dangerousness to self or others and has demonstrated appropriate behaviors and impulse control. Discharge Date/Time: 12/12/23 10:15
[2023-12-12 08:07] VITALS: BP 124/73; PULSE 85; RESP 16; TEMP 36.8; O2SAT 99
[2023-12-12] MEDS: lamoTRIgine 25 MG TABLET 12.5 MG PO (08:35)
[2023-12-12] MEDS: Cariprazine HCl 1.5 MG CAPSULE PO (08:35)
== END 2023-12-12 10:15 | disposition home or self-care (01) | DRG 751 ==
LOC: HO.ED 20:35 → HO.PM5 21:04
PROVIDERS: Nurse Practitioner Family; Admitting Provider Psychiatry & Neurology Psychiatry; Emergency Provider Emergency Medicine Emergency Medical Services; Visit Provider Clinical Nurse Specialist Psychiatric/Mental Health, Adult
DX: F33.9 Major depressive disorder, recurrent, unspecified (principal); R45.851 Suicidal ideations; F17.290 Nicotine dependence, other tobacco product, uncomplicated; F10.139 Alcohol abuse with withdrawal, unspecified; F14.10 Cocaine abuse, uncomplicated; Z20.822 Contact with and (suspected) exposure to COVID-19; Z71.6 Tobacco abuse counseling; Z79.899 Other long term (current) drug therapy
CPT/HCPCS: 0241U; 36415; 80053; 80061; 80307; 81001; 81003; 81025; 82550; 84484; 85025; 93005; 99285; J7120; S9485

== ENCOUNTER → 2023-12-03 12:56 | Outpatient (BNV) | payer OTHER, SELFPAY | PROVIDERS: Emergency Provider Emergency Medicine Emergency Medical Services; Visit Provider Nurse Practitioner Psychiatric/Mental Health | DX: F32.2 Major depressive disorder, single episode, severe without psychotic features (principal); R45.851 Suicidal ideations; F10.90 Alcohol use, unspecified, uncomplicated; F14.90 Cocaine use, unspecified, uncomplicated | CPT/HCPCS: 99231; 99232; 99238; 99499 ==

== ENCOUNTER → 2023-12-03 13:02 | Outpatient (BNV) | payer OTHER, SELFPAY | PROVIDERS: Admitting Provider Psychiatry & Neurology Psychiatry; Emergency Provider Emergency Medicine Emergency Medical Services; Visit Provider Internal Medicine Cardiovascular Disease | DX: F14.90 Cocaine use, unspecified, uncomplicated (principal) | CPT/HCPCS: 93010 ==

== ENCOUNTER 2023-12-16 13:20 | Outpatient (REF) | payer OTHER, SELFPAY ==
[2023-12-17 13:47] LABS: Amphetamine Screen Urine Not Detected (Not Detect); Barbiturates, Urine Not Detected (Not Detect); Benzodiazepines Screen Urine Not Detected (Not Detect); Cannabinoid Screen Urine Not Detected (Not Detect); Cocaine Screen Urine Not Detected (Not Detect); Fentanyl, urine Not Detected (Not Detect); Opiate Screen Urine Not Detected (Not Detect); Phencyclidine Screen Urine Not Detected (Not Detect)
== END 2023-12-16 13:21 | disposition home or self-care (01) ==
LOC: HO.PHPLNP 13:20
PROVIDERS: Visit Provider Psychiatry & Neurology Psychiatry
DX: F14.20 Cocaine dependence, uncomplicated (principal)
CPT/HCPCS: 80307

== ENCOUNTER 2023-12-20 08:45 | Outpatient (RCR) | payer OTHER, SELFPAY ==
[2023-12-16 10:47] VITALS: BP 118/84; PULSE 95; TEMP 37
[2023-12-16 10:57] VITALS: BMI 33.3
--- NOTE | 2023-12-16 11:58 | PC.ADMIT ---
Patient is a 33 year old female who was referred to [facility] by [facility] inpatient behavioral health unit where she was admitted from 12/05-12/12/23 d/t increased depression, anxiety, and substance use. Patient reports she was using alcohol and cocaine to cope with how she was feeling. Stated two weeks prior to hospitalization she increased her ETOH use drinking a handle of vodka daily and using cocaine. Per records patient reports that she was trying to end her life prior to hospitalization with increased substance use. Patient reports she told her father what was going on regarding her substance use for the first time and is currently staying with him. She was living with her girlfriend prior to staying with her father however she stated her girlfriend uses alcohol and cocaine and she wanted to get into a healthier environment. She also stated that her girlfriend is able to stop using and she believes she is more addicted than her girlfriend. Patient reports her substance use has interfered with her inability to remain employed. Toxicology screen done on 12/03/23 positive for cocaine. BAL less than 10. Currently patient is alert and oriented x4. Calm and cooperative. She presented with anxious mood and affect. Denied SI, No HI. She was given a copy of her safety plan if needed. She reports last use of ETOH when she went out to dinner with her girlfriend and drank 2 espresso martini's 12/08/23 and last use of cocaine 12/08/23. Medications reconciled with patient. d/c paperwork from inpatient unit at [facility]. Patient stated she did not receive Lamotrigine 25 mg at or Vraylar 1.5 mg daily. I called her pharmacy and was told insurance would not fill Lamotrigine 25 mg bedtime dose d/t the way it was ordered however the pharmacy stated they will call the insurance company and request an override and they will inform patient when prescription is ready. Vraylar needs a PA, I will inform [facility] psychiatrist.
--- NOTE | 2023-12-16 16:19 | HO.PHP ---
Client's case has been opened and reviewed in treatment team.
--- NOTE | 2023-12-17 21:35 | HO.PS.ADMBH ---
HPI Date of Service: 12/17/23 Chief Complaint: MDD,AUD,CUD Sources of Information: patient interviewed, chart reviewed and crisis/core team assessment reviewed HPI Narrative: This is the first [facility] admission for this 33 year old single female who is being stepped down from recent IP stay on M5 for depression with SI in the context of cocaine and alcohol abuse and was noted to be positive for fentanyl and cocaine. Reportedly has a long history of mood dysregulation, anger and poor frustration tolerance, intermittent episodes of self harming by biting which were exacerbated by polysubstance use. Reports struggling with anxiety and being easily stressed. History of low mood, anxiety, motivation and sleep disturbance even when sober. Denies any history of susan or psychosis. She reports being discharged 5 days ago, and in the interim she has had no relapses. She reports anxiety is still high but is feeling much better than she did prior to inpatient admission. [facility] Medical History (Updated 12/21/23 @ 00:47 by Sigrid Vaughn MD) Alcohol abuse Depression with suicidal ideation Polysubstance abuse Asthma Family History: adhd, dad bipolar on zoloft Social History: Living with girlfriend of 1 year. Reports this as a positive and supportive relationship. 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 Calling out a lot over the last 1 month. Has been in the [place] for around 4 years and was in [place] prior to that. 0 children. No legal issues. Substance History: Snorts cocaine a few times per week. Daily drinking. No history of detox, DTs or seizures. Informed urine was positive for fentanyl. Very surprised by same and cocaine may have been laced with fentanyl. Was sober for 2 years up until 1 year ago. 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 Trauma History: reports history but no details provided Diagnostics Vital Signs (24Hr): BMI result Body Mass Index 33.3 Meds/Allergies Allergies Allergies Allergy/AdvReac Type Severity Reaction Status Date / Time shellfish derived AdvReac Swelling Verified 12/03/23 09:47 Mental Status Exam Mental Status Exam Narrative: Alert, oriented, in no acute distress. Calm, cooperative, engaged. No psychomotor agitation or neurovegetative retardation. Eye contact maintained. Mood anxious, affect variable, mood congruent. Speech normal. Thought process linear, coherent. Thought content related to stressors, denies any helplessness, hopelessness or SI.? No aggressive ideation or HI. No paranoia or delusional content elicited. No evidence of psychosis. Insight and judgment fair but adequate. Assessment & Plan Assessment & Plan (1) Mood disorder: Status: Acute Code(s): F39 - Unspecified mood [affective] disorder (2) Other mixed anxiety disorders: Status: Acute Code(s): F41.3 - Other mixed anxiety disorders (3) Cocaine dependence: Status: Acute Code(s): F14.20 - Cocaine dependence, uncomplicated (4) Polysubstance abuse: Status: Acute Code(s): F19.10 - Other psychoactive substance abuse, uncomplicated Plan Admit to [facility] VS reviewed: abrefile, BP 118/84;?95 bpm increase Lamictal to 50 mg qd start topiramate 25 mg BID continue other regular medications? Routine lab work ordered EKG, routine for baseline QTc for medication considerations UDS as indicated MassPat reviewed Continue to monitor as per protocol Patient educated on: diagnosis, medication risk/benefits and substance abuse Informed Consent: understands Reason for continued partial hosp. stay Substantial Risk for: rapid decompensation and med/psych decompensation Certification I certify that partial hospital treatment is medically necessary due to the symptoms and problems resulting from the patient's mental illness and the failure to treat the patient at the partial hospital level of care would likely result in the patient requiring inpatient psychiatric care which could not be prevented at a less intensive level of care. Time Spent With Patient Time: Total time managing care of this patient today __60__ minutes.
--- NOTE | 2023-12-21 16:01 | HO.PHP ---
Addendum entered by Yulissa Marino 12/23/23 10:05: Edit: where it says team, it should say detox tea. This was causing her to go to the bathroom, making her unable to come to program. Original Note: [facility] admin, Delaney, informed [facility] staff that Mehnaz will not be attending program today due to drinking a detox team. Mehnaz will be in program tomorrow.
--- NOTE | 2023-12-23 10:06 | HO.PHP ---
[facility] staff member contacted Mehnaz due to her not showing up to the program. PHP staff member left a voicemail asking her to call back in 15 minutes. [facility] staff stated if she does not hear from her in 15 minutes she will have to initiate a call to her emergency contact and if the emergency contact does not respond, she will have to reach out to complete a wellness check. This phone call occurred at 9:20 AM.
--- NOTE | 2023-12-23 10:07 | HO.PHP ---
[facility] staff member contacted Mehnaz prior to initiating the call to the emergency contact. It started going through to [facility] but Mehnaz answered. Mehnaz informed the [facility] staff member that she overslept and that is why she didn't attend program. [facility] staff member informed her that due to her missing three days of program, unfortunately we will have to discharge her from the program due to insurance not allowing more then three days of program to be missed. Mehnaz was in agreement. [facility] staff member disclosed that she would like for her to get everything she can from the program and encouraged her to contact Delaney to reschedule an intake. Mehnaz was receptive. PHP staff member assessed for any SI, plan or intent or safety concerns. Mehnaz denied any SI, plan or intent or any safety concerns. [facility] staff member was receptive and informed her that she will let Delaney know that she will be calling to reschedule. Mehnaz was receptive.
== END 2023-12-23 23:59 | disposition home or self-care (01) ==
LOC: HO.PHPA 08:45
PROVIDERS: Visit Provider Psychiatry & Neurology Psychiatry
DX: F39 Unspecified mood [affective] disorder (principal); F41.3 Other mixed anxiety disorders; F14.20 Cocaine dependence, uncomplicated; F19.10 Other psychoactive substance abuse, uncomplicated; Z79.899 Other long term (current) drug therapy
CPT/HCPCS: 90791; 90853

== ENCOUNTER → 2025-05-09 09:32 | Outpatient (BNV) | payer OTHER, SELFPAY | PROVIDERS: Emergency Provider Emergency Medicine Emergency Medical Services; Visit Provider Radiology Diagnostic Radiology | DX: M25.462 Effusion, left knee (principal); M25.571 Pain in right ankle and joints of right foot; M25.471 Effusion, right ankle | CPT/HCPCS: 73564; 73610 ==

== ENCOUNTER 2025-05-09 10:14 | Emergency (ER) | payer OTHER, SELFPAY ==
--- NOTE | ~2025-05-09 | XR_ITS ---
EXAMINATION: XR ANKLE, right CLINICAL INFORMATION: pain and swelling COMPARISON: None available. TECHNIQUE: AP, lateral, and mortise views lower extremity joint, ankle. FINDINGS: Ankle mortise is congruent. There is no widening of the syndesmosis. Talar dome is intact. There are no calcaneal enthesophytes. XR/XR ankle RT min 3V IMPRESSION: Unremarkable right ankle. Electronically signed by: Brent Yepez MD 05/09/2025 10:35 AM EDT
--- NOTE | ~2025-05-09 | XR_ITS ---
EXAMINATION: XR KNEE, LEFT CLINICAL INFORMATION: swelling COMPARISON: None available. TECHNIQUE: Four views of the left knee. FINDINGS: There is a joint effusion. There is mild narrowing of the medial greater than lateral joint space. Minute marginal osteophytes are likely present along the medial joint line. Intercondylar tubercles are peaked. XR/XR knee LT 4V IMPRESSION: Mild degenerative changes and joint effusion. Electronically signed by: Brent Yepez MD 05/09/2025 10:36 AM EDT
[2025-05-09 10:15] VITALS: BP 149/74; PULSE 83; RESP 18; TEMP 36.9; O2SAT 100; BMI 35.4
[2025-05-09 10:56] VITALS: BP 149/74; PULSE 83; RESP 18; TEMP 36.9; O2SAT 100
--- NOTE | 2025-05-09 10:56 | ED.EXTPRO ---
HPI - Extremity Problem General Chief complaint: Extremity Problem Stated complaint: L knee and R ankle pain, swelling Time Seen by Provider: 05/09/25 10:50 Source: patient Mode of arrival: ambulatory Limitations: no limitations History of Present Illness ED Provider: Suzi Siddiqui PA-C HPI Narrative: Patient seeks medical attention today for evaluation of right-sided medial ankle/foot pain as well as left-sided upper superior knee pain. She reports she has a it physically intensive job that it causes her to have joint pain in general. It was starting to feel slightly sore yesterday woke up this morning with the above her left knee feeling swollen. She has iced it but did not feel like it made any difference. She denies any falls or trauma no paresthesias or weakness or calf pain either. At baseline patient reports that she has poor support her right medial foot she does wear arch supports in her foot. No other interventions. Related Data Previous Rx's ?Medication ?Instructions ?Recorded albuterol sulfate 90 mcg/actuation 2 puff inhalation Q4-6H PRN 12/11/23 aerosol inhaler shortness of breath or wheezing #8.5 grams cariprazine 1.5 mg capsule 1.5 mg PO DAILY #30 caps 12/11/23 (Vraylar) lamotrigine 25 mg tablet 12.5 mg (1/2 x 25 mg) PO DAILY #15 12/11/23 tabs lamotrigine 25 mg tablet 25 mg PO BEDTIME #30 tabs 12/11/23 loratadine 10 mg tablet 10 mg PO DAILY PRN allergies 30 12/11/23 days #30 tabs mirtazapine 15 mg tablet 15 mg PO BEDTIME #30 tabs 12/11/23 topiramate 25 mg tablet 25 mg PO BID as directed #30 tabs 12/17/23 meloxicam 15 mg tablet 15 mg PO DAILY #14 tabs 05/09/25 Allergies Allergy/AdvReac Type Severity Reaction Status Date / Time shellfish derived AdvReac Swelling Verified 05/09/25 10:16 Review of Systems Review of Systems: Yes all other systems are reviewed and are negative PMFSH Past Medical History Attestation statement: The following information was validated with the patient. Source: nursing notes reviewed Medical History Alcohol abuse Depression with suicidal ideation Polysubstance abuse Asthma Social History Social History Household Members: Family Housing: House Do you presently have visiting nurse or other home services: No Alcohol intake: current Alcohol intake frequency: 3 or more drinks per day Comment: 1:1 sitter Patient Tobacco Use Status: Never used Tobacco Tobacco use type: Smokeless Tobacco e-Cigarette/Vaping Use: Currently Using Substance Use Type: Crack/Cocaine Advance Directives: No Advance Directives Information Provided: Yes Do you have a plan to hurt others: No Plan service: No Sexual orientation: Lesbian/Ga/Homosexual Physical Exam Exam: Exam: General: Appears in no acute distress, appears well nourished body habitus is obese, appears stated age. No septic or ill-appearing. Vitals reviewed normal, PMH/Social and Surgical hx reviewed including allergies and current medications. - Eyes: EOMI ENMT: moist oral mucosa Neck: trachea midline Cardiovascular: peripheral perfusion normal, Regular heart rate Respiratory: no respiratory distress Abdomen: nondistended Extremities: warm and moving without difficulty , suprapatellar effusion noted of the left knee or medial arch support of the right ankle no significant bony tenderness cap refill less 3 seconds distal pulses 2+ no skin changes. DTRs are intact Psych: Cooperative Neuro: Alert and oriented. Vital Signs: Vital Signs: Last Vital Signs Temp 98.4 F 05/09/25 11:11 Pulse 83 05/09/25 11:11 Resp 18 05/09/25 11:11 BP 149/74 H 05/09/25 11:11 Pulse Ox 100 05/09/25 11:11 O2 Del Method Room Air 05/09/25 11:11 BMI result Body Mass Index 35.4 Medical Decision Making Medical Decision Making MDM Narrative: Patient presents to ED today for evaluation of knee pain and ankle pain. TRE is repetitive strain. This is not directly correlated to specific work related injury. H and P as above. Patient is afebrile with stable vitals and well-appearing. ?History and physical as stated above. ?Patient is neurovascular intact in the affected extremity. ?X-rays were obtained to further evaluate. At this time no evidence of NVC to warrant further work up/ intervention or consult. They show no acute fractures. ?Patient's symptoms are consistent with bursitis and strain. ?Patient?s knee ?was placed in an yuniel wrap. ?Discussed icing it, elevating and alternating ibuprofen and Tylenol for discomfort. ?Discussed that there is no significant improvement in the next 1 to 2 weeks to follow-up with an ?orthopedic clinic, information given. Discussed symptomatic treatment with the patient. ?Discussed return precautions. ?Patient verbalized understanding of the above plan and is in agreement with the above plan. ?The patient was discharged home in stable condition with return precautions. Differential Diagnosis Differential Diagnoses: The differential diagnosis associated with the presentation includes internal knee derangement, sprain, bursitis, tendonitis Admission/Observation Consideration of admission/observation: Escalation of care including admission/observation considered Patient would have been admitted to the hospital had her work up had any findings where hospital admission was appropriate and her clinical presentation warranted hospital admission. Independent Interpretation I performed an independent interpretation of an: Plain X-Ray Interpretation: X-rays of both the left knee and right ankle reviewed there is no acute bony abnormalities Radiology Impression Discussion of test interpretation with radiology: I have reviewed the radiologist's reading. Radiologist Impression: No fracture /dislocation small joint effusion present Tests considered The following testing was considered but not selected: Would have considered venous duplex ultrasound of the left lower extremity had her history been more concerning for VTE however Wells score for VTE is 0 therefore deferred Prescription Management I considered prescription management with: Pain Medication Chronic Conditions Patient?s care impacted by: Other (Obesity) Social Determinants Patient?s care significantly limited by Social Determinants of Health including: Alcoholism and drug addiction in family and Problems related to employment Discharge Plan Discharge Clinical Impression: Suprapatellar bursitis of left knee, Acquired pes planus of right foot Patient Disposition: Home, Self-Care Instructions: Knee Bursitis (ED), Flatfoot (DC) Additional Instructions: You were seen in the emergency department today due to right-sided ankle/foot pain as well as left-sided knee pain. You have a suprapatellar effusion on the left knee this is from repetitive stress causing the versus active fill up with fluid. Recommending rest ice compression elevation. Do not sleep with Yuniel wrap on. You have or medial arch on the right foot this will cause stress be distributed on evenly and make walking as well as uneven surfaces really difficult to navigate. It is recommended that you wear supportive footwear with your arch support continuously. Please follow up with Orthopedics. You can alternate be compresses do not place on the skin directly do not do greater than 20 minutes at a time without taking a break. Take you can take 650 mg of Tylenol every 6 hours as needed for discomfort do not exceed 3000 mg in 24 hours. I have given you a long-acting anti-inflammatory called meloxicam do not take other NSAIDs with this. Follow up with Orthopedics. Return for any paresthesias or set concerning symptoms to emergency department. Prescriptions: New meloxicam 15 mg tablet 15 mg PO DAILY Qty: 14 0RF No Action Vraylar 1.5 mg Capsule 1.5 mg PO DAILY Qty: 30 0RF lamotrigine 25 mg Tablet 25 mg PO BEDTIME Qty: 30 0RF lamotrigine 25 mg Tablet 12.5 mg PO DAILY Qty: 15 0RF mirtazapine 15 mg Tablet 15 mg PO BEDTIME Qty: 30 0RF albuterol sulfate 90 mcg/actuation HFA aerosol inhaler 2 puff inhalation Q4-6H PRN (Reason: shortness of breath or wheezing) Qty: 8.5 0RF loratadine 10 mg tablet 10 mg PO DAILY PRN (Reason: allergies) 30 Days Qty: 30 0RF topiramate 25 mg tablet 25 mg PO BID Qty: 30 0RF Referrals: [facility] [Provider Group] Referral Note: knee bursitis, pes planus Group,[facility] [Primary Care Provider, Primary Care] Stand Alone Forms: Work/School Release Interventions: ED Discharge Assessment Last Done: 05/09/25 11:11 Discharge Date/Time: 05/09/25 11:13 Print Language: Tanzanian
[2025-05-09 11:11] VITALS: BP 149/74; PULSE 83; RESP 18; TEMP 36.9; O2SAT 100
--- OUTSIDE RECORDS SUMMARY | 2025-05-09 12:23 | XMS_ITS ---
Author Name [facility] Organization Unknown Care Team Organization Name Specialty Phone Email Start Date End Da te [facility] Daniella Vyas Primary Care 02/12/2023 024 [facility] Sin Dhillon Primary Care 01/11/2023 04/24/2024 [facility] BLAYNE DAY Primary Care 07/14/20222023
--- OUTSIDE RECORDS SUMMARY | 2025-05-09 12:23 | XMS_ITS | Clinical Summary ---
Author Organization [facility] Address [address] [place] [phone] Phone Care Team Providers Care Lead Massage Therapist Name Role Phone Mohan Márquez MD Primary Care Provider Allergies Active Allergy Reactions Criticality Noted Date Comments Dog Dander Itching 11/02/2016 Shellfish Containing Products Itching 2016 Medications albuterol 2.5 mg /3 mL (0.083 %) nebulizer solution Inhale 3 mL (2.5 mg total) by mouth. 05/23/2024 Active loratadine (CLARITIN) 10 mg tablet Take 1 tablet (10 mg total) by mouth. 12/12/2023 Active albuterol HFA (PROAIR HFA ; PROVENTIL HFA ; VENTOLIN HFA) 90 mcg/actuation inhalerIndication s:Mild intermittent asthma without complication Inhale 2 puffs by mouth every 4 (four) hours if needed for wheezing. 6.7 g 1 04/09/2025 Active atorvastatin (LIPITOR) 40 mg tablet Take 1 tablet (40 mg total) by mouth 1 (one) time each day. 90 tablet 1 04/09/2025 Active Active Problems Problem Noted Date Diagnosed Date Hypertriglyceridemia 05/23/2024 COVID-19 virus infection 10/09/2020 Overview (09/05/2024): Positive 10/08/20 Adjustment disorder with depressed mood 10/02/19 17 Panic disorder 10/02/2016 Acne 09/05/2009 Asthma 09/05/2009 Encounters Date Type Department Care Team Description 04/09/2025 1:00 PM EDT Office Visit Adult Medicine [address] [phone] Kristy Oakley PA Mixed hyperlipidemia (Primary Dx); IFG (impaired fasting glucose); Obesity (BMI 30-39.9); Mild intermittent asthma without complication; Screening for deficiency anemia; Abnormal thyroid screen (blood) from Last 3 Months Immunizations Name Administration Dates Next Due Pfizer SARS-CoV-2 COVID-19, mRNA, LNP-S, preservative free 11/08/2021,02/11/2021 Pneumococcal conjugate 20 va len (Prevnar 20, PCV 20) 2mo and older 05/23/2024 Tdap Tetanus diptheria acell ular pertussis (Boostrix; Adacel) 7yo and older 07/04/2020 Surgical History Surgery Date Site/Laterality Comments OTHER SURGICAL HISTORY PROCEDURE: DENIES PREVIOUS SURGERY Medical History Medical History Date Comments Asthma DX:Asthma Family History Medical History Relation Name Comments Other: psoriasis Father's side cousin Colon cancer Maternal Grandmother Arthritis Mother Other: psoriasis Uncle paternal Relation Name Status Comments Father's side cousin Alive Maternal Grandmother Mother Uncle paternal Alive Social History Tobacco Use Types Packs/Day Years Used Date Smoking Tobacco: Former Cigarettes Q uit: 01/04/2021 Smokeless Tobacco: Former Tobacco Cessation:Counseling Given: Not Answered Alcohol Use Standard Drinks/Week Comments Yes 0 (1 standard drink = 0.6 oz pur e alcohol) Housing Instability Answer Date Recorde d Are you worried that in the next 2 months you may not have stable housing? Patient declined 01/26/2025 Food Access & Nutrition Answer Date Rec orded Do you have access to a vari ety of food including fruits and vegetables? Patient declined 01/26/2025 Access to Healthcare Answer Date Record ed Within the last 3 months, giles carson many times did you visit the emergency department for your medical care? 1 01/26/2025 Health Literacy Answer Date Recorded How often do you need to hav e someone help you when you read instructions, pamphlets, or other written material from your doctor or pharmacy? Patient declined 01/26/2025 Caregiver: How often do you need to have someone help you when you read instructions, pamphlets, or other written material from your doctor or pharmacy? Not on file 025 Financial Risk Answer Date Recorded How hard is it for you to pa y for the very basics like food, housing, medical care, and air conditioning / heating? Patient declined 01/26/2025 Transportation Answer Date Recorded Has the lack of transportati on kept you from meetings, work, or from getting things needed for daily living? Patient declined 01/26/2025 Has the lack of transportati on kept you from medical appointments or from getting medications? Patient declined 01/26/2025 Social Isolation Answer Date Recorded How often do you feel lonely or isolated from those around you? Patient declined 01/26/2025 Food Risk Answer Date Recorded Within the past 12 months we worried whether our food would run out before we got money to buy more. Sometimes true 025 Within the past 12 months th e food we bought just didn't last and we didn't have money to get more. Patient declined 01/05 Dependent Care Answer Date Recorded Do you need help finding or paying for care for your loved ones. For example, children's institution attendant or elderly care for an older adult? Patient declined 01/26/2025 Education Answer Date Recorded Do you think completing more education or training, like finishing a GED, going to college, or learning a trade, would be helpful for you? Patient declined 01/26/2025 Employment and Income Answer Date Recor ded During the last four weeks, have you been actively looking for work? Patient declined 01/26/2025 Comments No Sex and Gender Information Value Date Recorded Sex Assigned at Not on file Legal Sex Female 3:00 AM EST Gender Identity Not on file Sexual Orientation Not on file Obstetrics History Last Filed Vital Signs Vital Sign Reading Time Taken Comments Blood Pressure 104/64 04/09/2025 1:04 PM EDT Pulse 82 04/09/2025 1:04 PM EDT Temperature 36.3 C (97.3 F) 04/09/2025 1:04 PM EDT Respiratory Rate 14 04/09/2025 1:04 PM EDT Oxygen Saturation 96% 04/09/2025 1:04 PM EDT Inhaled Oxygen Concentration - - Weight 89.9 kg (198 lb 3.2 oz) 04/09/2025 1:04 P M EDT Height 157.5 cm (5' 2 ) 04/09/2025 1:04 PM EDT Body Mass Index 36.25 04/09/2025 1:04 PM EDT Plan of Treatment Health Maintenance Due Date Last Done Comments Hepatitis B Vaccines (1 of 3 - 19+ 3-dose series) 2009 Cervical Cancer Screening: Pap Smear 11/16/2011 COVID-19 Vaccine ( - 2024-2 6 season) 2025 11/08/2021, 03/04/2021, 02/11/2021 Influenza Vaccine (#1) 2025 Social Influencers of Health Screening 01/26/2026 01/26/2025 Cholesterol Screening (Lipid Panel) 05/23/2029 05/23/2024, 05/23/2024, 05/23/2024 DTaP,Tdap,and Td Vaccines (2 - Td or Tdap) 07/04/2030 07/04/2020 Pneumococcal Vaccine: Pediatrics (0 to 5 Years) and At-Risk Patients (6 to 49 Years) Completed 05/23/2024 Depression Screening Completed 01/26/2025, 05/23/2024 HIB Vaccines Aged Out No longer eligi ble based on patient's age to complete this topic HIV Screening Discontinued HPV Vaccines Aged Out No longer eligi ble based on patient's age to complete this topic Hepatitis A Vaccines Aged Out No long er eligible based on patient's age to complete this topic Hepatitis C Screening Discontinued IPV Vaccines Aged Out No longer eligi ble based on patient's age to complete this topic MMR Vaccines Aged Out No longer eligi ble based on patient's age to complete this topic Meningococcal ACWY Vaccine Aged Out N o longer eligible based on patient's age to complete this topic Meningococcal B Vaccine Aged Out No l onger eligible based on patient's age to complete this topic RSV Immunization Patients Under 20 months Aged Out No longer eligible based on patient's age to complete this topic Varicella Vaccines Aged Out No longer eligible based on patient's age to complete this topic Procedures Procedure Name Priority Date/Time Associated Diagnosis Comments DEPRESSION SCREENING Routine 05/23/2024 LIPID PANEL Routine 05/23/2024 from Last 3 Months or Most Recently Relevant to Health Maintenance Results * Depression Screening (05/23/2024) Depression Screening abstracted Historical Provider HEALTH MAINTENANCE Final Result * (ABNORMAL) Lipid panel (05/23/2024) LDL/HDL Ratio 10(A) 0 - 4 Triglycerides 754(A) 0 - 150 mg/dL Cholesterol 227(A) 0 - 200 mg/dL HDL 22(A) >=40 mg/dL Blood Venous blood specimen / Unknown Historical Provider LAB BLOOD ORDERABLES Namrata l Result from Last 3 Months or Most Recently Relevant to Health Maintenance Insurance [facility] [employer] [place] [id number] Care Teams Lead Massage Therapist Relationship Specialty Start Date End Date Mohan Márquez MD [address] [place] [phone] PCP - General 12/17/23
== END 2025-05-09 11:13 | disposition home or self-care (01) ==
PROVIDERS: Emergency Provider Emergency Medicine Emergency Medical Services
DX: M71.562 Other bursitis, not elsewhere classified, left knee (principal); M21.41 Flat foot [pes planus] (acquired), right foot
CPT/HCPCS: 73564; 73610; 99283; 99284